=== PATIENT | female | born 1985 | race Asian ===

== ENCOUNTER 2017-03-28 16:55 | Observation (INO) | payer OTHER ==
[~2017-03-28] VITALS: Ht 121.9 cm; Wt 42.3 kg
[2017-03-28 18:17] LABS: BILIRUBIN,URINE NEGATIVE (NEG); GLUCOSE,URINE >=1000 mg/dL (NEG); NITRITE,URINE NEGATIVE (NEG); PROTEIN,URINE NEGATIVE (NEG-TRACE); UROBILINOGEN,URINE 0.2 mg/dL (0.2 mg/dL)
[2017-03-28 18:32] LABS: BACTERIA,URINE 0 /HPF (0-FEW); SQUAMOUS EPITHELIAL CELL,UR OCC /LPF
[2017-03-28] MEDS ORDERED: IV NORMAL SALINE 1000ML BAG 1,000 ML IV SCH (18:43)
--- NOTE | 2017-03-28 18:43 | PHYS DOC ---
Past Medical History Past Medical History: Diabetes-Type I, Hypertension Additional Past Medical Histor: Neuropathy Past Surgical History: Additional Past Surgical Histo: eyes Alcohol Use: None Drug Use: None Adult General Chief Complaint Chief Complaint: NAUSEA/VOMITING/DIARRHA HPI HPI Patient is a 31 year old female who presents with nausea vomiting and diarrhea. All started a week ago when she started on several rounds of nonbloody loose stools which have resolved. She states now she can't keep any liquids down. She states her sugars were running for 100s even though she's not been eating. Every time she tries to eat or drink anything she vomits back up. She's did not check her sugars today but states she is a checks only about once a day. She states recently her primary care doctor tried to increase her insulin to a higher dose. She takes it twice a day. Currently she states she feels cold she denies any cough, abdominal pain or dysuria. Review of Systems Review of Systems Constitutional: Denies fever or positive for chills [] Eyes: Denies change in visual acuity, redness, or eye pain [] HENT: Denies nasal congestion or sore throat [] Respiratory: Denies cough or shortness of breath [] Cardiovascular: No additional information not addressed in HPI [] GI: Denies abdominal pain, bloody stools or diarrhea as it for nausea vomiting : Denies dysuria or hematuria [] Musculoskeletal: Denies back pain or joint pain [] Integument: Denies rash or skin lesions [] Neurologic: Denies headache, focal weakness or sensory changes [] Endocrine: Denies polyuria or polydipsia [] Current Medications Current Medications Current Medications Medications (Trade) Dose Ordered Sig/Rafaela Start Time Stop Time Status Last Admin Dose Admin Ceftriaxone Sodium 1 gm/ Sodium Chloride 50 ml @ 100 mls/hr Q24H 03/29/17 21:00 Ceftriaxone Sodium (Rocephin 1gm Ivpb For Omni) 50 ml @ 100 mls/hr 1X ONCE 03/28/17 21:30 03/28/17 21:59 Ondansetron HCl (Zofran) 4 mg PRN Q8HRS PRN 03/28/17 21:15 03/29/17 21:14 Sodium Chloride 1,000 ml @ 1,000 mls/hr Q1H 03/28/17 18:43 03/28/17 19:42 DC 03/28/17 19:55 1,000 MLS/HR Allergies Allergies Allergies Coded Allergies Type Severity Reaction Last Updated Verified No Known Drug Allergies 03/28/17 No Physical Exam Physical Exam Constitutional: Well developed, well nourished, no acute distress, non-toxic appearance. [] HENT: Normocephalic, atraumatic, bilateral external ears normal, oropharynx moist, no oral exudates, nose normal. [] Eyes: PERRLA, EOMI, conjunctiva normal, no discharge. [] Neck: Normal range of motion, no tenderness, supple, no stridor. [] Cardiovascular:Heart rate regular rhythm, no murmur [] Lungs & Thorax: Bilateral breath sounds clear to auscultation [] Abdomen: Bowel sounds normal, soft, no tenderness, no masses, no pulsatile masses. [] Skin: Warm, dry, no erythema, no rash. [] Back: No tenderness, no CVA tenderness. [] Extremities: No tenderness, no cyanosis, no clubbing, ROM intact, no edema. [] Neurologic: Alert and oriented X 3, normal motor function, normal sensory function, no focal deficits noted. [] Psychologic: Affect normal, judgement normal, mood normal. [] Current Patient Data Vital Signs Vital Signs Date Time Temp Pulse Resp B/P Pulse Ox O2 Delivery O2 Flow Rate FiO2 03/28/17 17:16 97.9 105 16 141/76 100 Room Air 97.9 Lab Values Laboratory Tests Test 03/28/17 17:05 03/28/17 18:09 03/28/17 19:13 POC Urine HCG, Qualitative Hcg negative (Negative) Urine Opiates Screen Neg (NEG) Urine Methadone Screen Neg (NEG) Urine Barbiturates Neg (NEG) Urine Phencyclidine Screen Neg (NEG) Urine Amphetamine/Methamphetamine Neg (NEG) Urine Benzodiazepines Screen Neg (NEG) Urine Cocaine Screen Neg (NEG) Urine Cannabinoids Screen Neg (NEG) Urine Ethyl Alcohol Neg (NEG) Urine Color Yellow Urine Clarity Clear Urine pH 7.0 Urine Specific [place] 1.020 Urine Protein Negativemg/dL (NEG-TRACE) Urine Glucose (UA) >=1000mg/dL (NEG) Urine Ketones (Stick) Negativemg/dL (NEG) Urine Blood Moderate (NEG) Urine Nitrite Negative (NEG) Urine Bilirubin Negative (NEG) Urine Urobilinogen Dipstick 0.2mg/dL (0.2 mg/dL) Urine Leukocyte Esterase Moderate (NEG) Urine RBC 3-5/HPF (0-2) Urine WBC 11-20/HPF (0-4) Urine Squamous Epithelial Cells Occ/LPF Urine Bacteria 0/HPF (0-FEW) Urine Test Negative (NEG) White Blood Count 8.8x10^3/uL (4.0-11.0) Red Blood Count 3.53x10^6/uL (3.50-5.40) Hemoglobin 9.9g/dL (12.0-15.5) L Hematocrit 31.1% (36.0-47.0) L Mean Corpuscular Volume 88fL (79-100) Mean Corpuscular Hemoglobin 28pg (25-35) Mean Corpuscular Hemoglobin Concent 32g/dL (31-37) Red Cell Distribution Width 15.1% (11.5-14.5) H Platelet Count 299x10^3/uL (140-400) Neutrophils (%) (Auto) 66% (31-73) Lymphocytes (%) (Auto) 27% (24-48) Monocytes (%) (Auto) 4% (0-9) Eosinophils (%) (Auto) 2% (0-3) Basophils (%) (Auto) 1% (0-3) Neutrophils # (Auto) 5.8x10^3uL (1.8-7.7) Lymphocytes # (Auto) 2.3x10^3/uL (1.0-4.8) Monocytes # (Auto) 0.4x10^3/uL (0.0-1.1) Eosinophils # (Auto) 0.2x10^3/uL (0.0-0.7) Basophils # (Auto) 0.1x10^3/uL (0.0-0.2) Sodium Level 137mmol/L (136-145) Potassium Level 4.1mmol/L (3.5-5.1) Chloride Level 100mmol/L (98-107) Carbon Dioxide Level 28mmol/L (21-32) Anion Gap 9 (6-14) Blood Urea Nitrogen 8mg/dL (7-20) Creatinine 0.7mg/dL (0.6-1.0) Estimated GFR (Cockcroft-Gault) 98.3 Glucose Level 378mg/dL (70-99) H Calcium Level 9.7mg/dL (8.5-10.1) Total Bilirubin 0.2mg/dL (0.2-1.0) Direct Bilirubin 0.1mg/dL (0.0-0.2) Aspartate Amino Transferase (AST) 53U/L (15-37) H Alanine Aminotransferase (ALT) 117U/L (14-59) H Alkaline Phosphatase 83U/L (46-116) Creatine Kinase 61U/L (26-192) Creatine Kinase MB (Mass) 0.6ng/mL (0.0-3.6) Creatine Kinase MB Relative Index 1.0% (0-4) Total Protein 8.5g/dL (6.4-8.2) H Albumin 3.4g/dL (3.4-5.0) Lipase 225U/L (73-393) Laboratory Tests 03/28/17 19:13 Laboratory Tests 03/28/17 19:13 EKG EKG EKG shows sinus tachycardia with rate of [address] elevations or T- wave inversions, normal axis, QTC 4:30 milliseconds as interpreted by me. Radiology/Procedures Radiology/Procedures [] Impressions: Uncontrolled nausea and vomiting UTI Hyperglycemia Course & Med Decision Making Course & Med Decision Making Pertinent Labs and Imaging studies reviewed. (See chart for details) Labs show hyperglycemia otherwise she has a urinary tract infection. We'll give 1 g of Rocephin, IV fluids and admit to the hospitalist. This time being admitted to the hospitalist. Interim bridge orders have been written. Dragon Disclaimer Dragon Disclaimer This electronic medical record was generated, in whole or in part, using a voice recognition dictation system. Departure Departure Impression: Primary Impression: Nausea & vomiting Additional Impression: UTI (urinary tract infection) Disposition: 09 ADMITTED INPATIENT Admitting Physician: Marie Barbour Condition: STABLE Referrals: HSUKRI DOWLING MD (PCP) Problem Qualifiers Primary Impression: Nausea & vomiting Vomiting Intractability: intractable Additional Impression: UTI (urinary tract infection) Hematuria presence: without hematuria ROBINSON ROBLES MD Mar 28, 2017 18:43
[2017-03-28 18:48] LABS: NEG OBC UR NEG; POS OBC UR POS
[2017-03-28 19:16] LABS: BARBITURATES NEG (NEG); BENZODIAZEPINES NEG (NEG); CANNABINOIDS NEG (NEG); COCAINE NEG (NEG); METHADONE NEG (NEG); OPIATES NEG (NEG); PHENCYCLIDINE NEG (NEG)
[2017-03-28 19:34] LABS: BASO # 0.1 x10^3/uL (0.0-0.2); BASO % 1 % (0-3); EOS % 2 % (0-3); HEMATOCRIT 31.1 % (36.0-47.0); HEMOGLOBIN 9.9 g/dL (12.0-15.5); LYMPH # 2.3 x10^3/uL (1.0-4.8); LYMPH % 27 % (24-48); MEAN CORPUSCULAR HEMOGLOBIN 28 pg (25-35); MEAN CORPUSCULAR HGB CONC 32 g/dL (31-37); MEAN CORPUSCULAR VOLUME 88 fL (79-100); MONO % 4 % (0-9); NEUT % 66 % (31-73); PLATELET COUNT 299 x10^3/uL (140-400); RED BLOOD COUNT 3.53 x10^6/uL (3.50-5.40); RED CELL DISTRIBUTION WIDTH 15.1 % (11.5-14.5); WHITE BLOOD COUNT 8.8 x10^3/uL (4.0-11.0)
[2017-03-28 19:55] LABS: CALCIUM 9.7 mg/dL (8.5-10.1); CREATININE 0.7 mg/dL (0.6-1.0); GFR 98.3; POTASSIUM 4.1 mmol/L (3.5-5.1)
[2017-03-28 20:00] LABS: ALBUMIN 3.4 g/dL (3.4-5.0); DIRECT BILIRUBIN 0.1 mg/dL (0.0-0.2); TOTAL BILIRUBIN 0.2 mg/dL (0.2-1.0); TOTAL PROTEIN 8.5 g/dL (6.4-8.2)
[2017-03-28 20:08] LABS: CKMB MASS 0.6 ng/mL (0.0-3.6)
[2017-03-28] MEDS ORDERED: IV NORMAL SALINE 1000ML BAG 1,000 ML IV ONE (21:15)
[2017-03-28] MEDS ORDERED: ONDANSETRON PF 4 MG/2 ML VIAL. IV PRN (21:15)
--- NOTE | 2017-03-28 21:37 | ACF ---
Admission Forms Criteria VOMITING Clinical Indications for Admission to Inpatient Care ( Place 'X' for any and all applicable criteria): Admission is indicated for 1 or more of the following(1)(2)(3): [ ]I. Complete or partial gastrointestinal obstruction [ ]II. Vomiting due to significant metabolic derangement (eg, severe hypercalcemia, diabetic ketoacidosis) [ ]III. Other cause of vomiting requiring hospitalization (eg, poisoning, increased intracranial pressure) [X ]IV. Inpatient admission required rather than observation care because of 1 or more of the following [ ]i) Hemodynamic instability [X ]ii) Vomiting that is severe or persistent indicated by 1 or more of the following 1) Numerous episodes of vomiting in past 24hours (eg, every 1 to 2 hours) 2) Suggests severe underlying cause or complication (eg , projectile, feculent, bilious, coffee ground, bloody) 3) Appropriate antiemetic treatment (eg, repeated oral or parenteral dosing) does not sufficiently reduce vomiting within 12 to 24 hours of treatment X4) Treatment regimen necessary to adequately control vomiting requires inpatient level of care (eg, not immediately available in outpatient setting) [ ]iii) Severe electrolyte abnormalities requiring inpatient care [ ]iv) Severe pain requiring acute inpatient management( Continuous or frequent (eg, every 2 to 4 hours) parental analgesics or analgesic regimen that can only be performed or initiated in inpatient setting) [ ]v) High fever or infection requiring inpatient admission as indicated by 1 or more of the following(7)(8): [ ]1) Appropriate outpatient or observation care antimicrobial treatment unavailable, not effective, or not feasible [ ]2) Documented bacteremia [ ]3) Temp >104.9 degrees F (40.5 degrees C) (oral) [ ]4) Temp >103.1 degrees F (39.5 C) (oral) or <96.8 degrees F (36 C) (rectal) that does not respond to all emergency treatment measures [ ]vi) Acute renal failure [ ]vii) IV fluid required rather than oral rehydration to replace significant on going losses (greater than 3 L/m2 per day) [ ]viii) Parenteral nutrition regimen that must be implemented on inpatient basis [ ]ix) Other condition, treatment or monitoring requiring inpatient admission Extended stay beyond goal length of stay may be needed for(1)(4): [ ]a) Severe vomiting [ ]b) Persistent vomiting, vital sign changes, severe electrolyte imbalance , or diagnosed cause of vomiting that requires continued hospitalization (eg, gastrointestinal obstruction , increased intracranial pressure) [ ]c) Surgery to treat identified causes of vomiting (eg, bowel obstruction , intracranial process) [ ]d) Comorbid illness that requires inpatient care (eg, acute heart failure , renal failure) [ ]e) Need for inpatient endoscopy The original [facility] [facility] content created by [employer] has been revised. The portions of the content which have been revised are identified through the use of italic text or in bold, and [facility] has neither reviewed nor approved the modified material. All other unmodified content is copyright [facility] [facility] Please see references footnoted in the original [facility] [employer] edition 2016 Admission Criteria Met?: Yes TK PAUL Mar 28, 2017 21:37
[2017-03-28] MEDS ORDERED: DEXTROSE 50% 25 GM / 50ML DISP.SYRIN. IV PRN (22:30)
[2017-03-28] MEDS: IV NORMAL SALINE 1000ML BAG 1,000 ML IV SCH (23:22)
[2017-03-28] MEDS ORDERED: INSU100V31 SQ (23:36)
[2017-03-28 23:47] VITALS: BP 145/77
[2017-03-29 03:00] VITALS: BP 128/79
[2017-03-29 05:53] LABS: HEMATOCRIT 28.7 % (36.0-47.0); HEMOGLOBIN 9.4 g/dL (12.0-15.5); MEAN CORPUSCULAR VOLUME 87 fL (79-100); RED BLOOD COUNT 3.31 x10^6/uL (3.50-5.40); WHITE BLOOD COUNT 7.3 x10^3/uL (4.0-11.0)
[2017-03-29 05:54] LABS: BASO # 0.1 x10^3/uL (0.0-0.2); BASO % 1 % (0-3); EOS % 2 % (0-3); LYMPH % 27 % (24-48); MEAN CORPUSCULAR HEMOGLOBIN 29 pg (25-35); MEAN CORPUSCULAR HGB CONC 33 g/dL (31-37); MONO % 5 % (0-9); NEUT % 65 % (31-73); PLATELET COUNT 267 x10^3/uL (140-400); RED CELL DISTRIBUTION WIDTH 15.2 % (11.5-14.5)
[2017-03-29 06:57] LABS: CALCIUM 8.7 mg/dL (8.5-10.1); CREATININE 0.8 mg/dL (0.6-1.0); GFR 84.2; POTASSIUM 4.1 mmol/L (3.5-5.1)
[2017-03-29 07:02] VITALS: BP 128/82
--- NOTE | 2017-03-29 07:53 | PDOC1 ---
History and Physical Current Problem List Problem List Problems Medical Problems: (1) Nausea & vomiting Status: Acute (2) UTI (urinary tract infection) Status: Acute Current Medications Current Medications Current Medications Medications (Trade) Dose Ordered Sig/Rafaela Start Time Stop Time Status Last Admin Dose Admin Ceftriaxone Sodium 1 gm/ Sodium Chloride 50 ml @ 100 mls/hr Q24H 03/29/17 21:00 Ceftriaxone Sodium (Rocephin 1gm Ivpb For Omni) 50 ml @ 100 mls/hr 1X ONCE 03/28/17 21:30 03/28/17 21:59 DC 03/28/17 23:20 100 MLS/HR Dextrose 12.5 gm 12.5 gm PRN Q15MIN PRN 03/28/17 22:30 Insulin Aspart (Novolog) 0-9 UNITS TIDWMEALS 03/29/17 08:00 Ondansetron HCl (Zofran) 4 mg PRN Q8HRS PRN 03/28/17 21:15 03/29/17 21:14 Sodium Chloride (Iv Sodium Chloride 0.9% 1000ml Bag) 1,000 ml @ 75 mls/hr [id number] 03/28/17 22:30 03/28/17 23:22 75 MLS/HR Allergies Allergies Allergies Coded Allergies Type Severity Reaction Last Updated Verified No Known Drug Allergies 03/28/17 No ROS Review of System CONSTITUTIONAL: No fever or chills EYES: No recent changes SKIN: No rash or itching CARDIOVASCULAR: No chest pain, syncope, palpitations, or edema RESPIRATORY: No SOB or cough GASTROINTESTINAL: nausea, NEUROLOGICAL: No headaches or weakness ENDOCRINE: No cold or heat intolerance GENITOURINARY: No urgency or frequency of urination MUSCULOSKELETAL: No back pain or joint pain LYMPHATICS: No enlarged lymph nodes PSYCHIATRIC: No anxiety or depression Physical Exam Physical Exam GEN.: No apparent distress. Alert and oriented. thin built HEENT: Head is normocephalic, atraumatic NECK: Supple. LUNGS: Clear to auscultation. HEART: RRR, S1, S2 present. Peripheral pulses intact ABDOMEN: Soft, nontender. Positive bowel sounds. EXTREMITIES: Without any cyanosis. NEUROLOGIC: Normal speech, normal tone PSYCHIATRIC: Normal affect, normal mood. SKIN: No ulcerations Vitals Vitals Vital Signs Date Time Temp Pulse Resp B/P Pulse Ox O2 Delivery O2 Flow Rate FiO2 03/29/17 03:00 97.6 111 20 128/79 96 Room Air 97.6 Labs Labs Laboratory Tests Test 03/28/17 17:05 03/28/17 18:09 03/28/17 19:13 03/29/17 05:00 Bedside Urine HCG, Qualitative Hcg negative (Negative) Urine Opiates Screen Neg (NEG) Urine Methadone Screen Neg (NEG) Urine Barbiturates Neg (NEG) Urine Phencyclidine Screen Neg (NEG) Urine Amphetamine/Methamphetamine Neg (NEG) Urine Benzodiazepines Screen Neg (NEG) Urine Cocaine Screen Neg (NEG) Urine Cannabinoids Screen Neg (NEG) Urine Ethyl Alcohol Neg (NEG) Urine Color Yellow Urine Clarity Clear Urine pH 7.0 Urine Specific [place] 1.020 Urine Protein Negativemg/dL (NEG-TRACE) Urine Glucose (UA) >=1000mg/dL (NEG) Urine Ketones (Stick) Negativemg/dL (NEG) Urine Blood Moderate (NEG) Urine Nitrite Negative (NEG) Urine Bilirubin Negative (NEG) Urine Urobilinogen Dipstick 0.2mg/dL (0.2 mg/dL) Urine Leukocyte Esterase Moderate (NEG) Urine RBC 3-5/HPF (0-2) Urine WBC 11-20/HPF (0-4) Urine Squamous Epithelial Cells Occ/LPF Urine Bacteria 0/HPF (0-FEW) Urine Test Negative (NEG) White Blood Count 8.8x10^3/uL (4.0-11.0) 7.3x10^3/uL (4.0-11.0) Red Blood Count 3.53x10^6/uL (3.50-5.40) 3.31x10^6/uL (3.50-5.40) Hemoglobin 9.9g/dL (12.0-15.5) 9.4g/dL (12.0-15.5) Hematocrit 31.1% (36.0-47.0) 28.7% (36.0-47.0) Mean Corpuscular Volume 88fL (79-100) 87fL (79-100) Mean Corpuscular Hemoglobin 28pg (25-35) 29pg (25-35) Mean Corpuscular Hemoglobin Concent 32g/dL (31-37) 33g/dL (31-37) Red Cell Distribution Width 15.1% (11.5-14.5) 15.2% (11.5-14.5) Platelet Count 299x10^3/uL (140-400) 267x10^3/uL (140-400) Neutrophils (%) (Auto) 66% (31-73) 65% (31-73) Lymphocytes (%) (Auto) 27% (24-48) 27% (24-48) Monocytes (%) (Auto) 4% (0-9) 5% (0-9) Eosinophils (%) (Auto) 2% (0-3) 2% (0-3) Basophils (%) (Auto) 1% (0-3) 1% (0-3) Neutrophils # (Auto) 5.8x10^3uL (1.8-7.7) 4.8x10^3uL (1.8-7.7) Lymphocytes # (Auto) 2.3x10^3/uL (1.0-4.8) 2.0x10^3/uL (1.0-4.8) Monocytes # (Auto) 0.4x10^3/uL (0.0-1.1) 0.4x10^3/uL (0.0-1.1) Eosinophils # (Auto) 0.2x10^3/uL (0.0-0.7) 0.1x10^3/uL (0.0-0.7) Basophils # (Auto) 0.1x10^3/uL (0.0-0.2) 0.1x10^3/uL (0.0-0.2) Sodium Level 137mmol/L (136-145) 137mmol/L (136-145) Potassium Level 4.1mmol/L (3.5-5.1) 4.1mmol/L (3.5-5.1) Chloride Level 100mmol/L (98-107) 103mmol/L (98-107) Carbon Dioxide Level 28mmol/L (21-32) 25mmol/L (21-32) Anion Gap 9 (6-14) 9 (6-14) Blood Urea Nitrogen 8mg/dL (7-20) 7mg/dL (7-20) Creatinine 0.7mg/dL (0.6-1.0) 0.8mg/dL (0.6-1.0) Estimated GFR (Cockcroft-Gault) 98.3 84.2 Glucose Level 378mg/dL (70-99) 430mg/dL (70-99) Calcium Level 9.7mg/dL (8.5-10.1) 8.7mg/dL (8.5-10.1) Total Bilirubin 0.2mg/dL (0.2-1.0) Direct Bilirubin 0.1mg/dL (0.0-0.2) Aspartate Amino Transf (AST/SGOT) 53U/L (15-37) Alanine Aminotransferase (ALT/SGPT) 117U/L (14-59) Alkaline Phosphatase 83U/L (46-116) Creatine Kinase 61U/L (26-192) Creatine Kinase MB (Mass) 0.6ng/mL (0.0-3.6) Creatine Kinase MB Relative Index 1.0% (0-4) Total Protein 8.5g/dL (6.4-8.2) Albumin 3.4g/dL (3.4-5.0) Lipase 225U/L (73-393) Laboratory Tests Test 03/28/17 17:05 03/28/17 18:09 03/28/17 19:13 03/29/17 05:00 Bedside Urine HCG, Qualitative Hcg negative (Negative) Urine Opiates Screen Neg (NEG) Urine Methadone Screen Neg (NEG) Urine Barbiturates Neg (NEG) Urine Phencyclidine Screen Neg (NEG) Urine Amphetamine/Methamphetamine Neg (NEG) Urine Benzodiazepines Screen Neg (NEG) Urine Cocaine Screen Neg (NEG) Urine Cannabinoids Screen Neg (NEG) Urine Ethyl Alcohol Neg (NEG) Urine Color Yellow Urine Clarity Clear Urine pH 7.0 Urine Specific [place] 1.020 Urine Protein Negativemg/dL (NEG-TRACE) Urine Glucose (UA) >=1000mg/dL (NEG) Urine Ketones (Stick) Negativemg/dL (NEG) Urine Blood Moderate (NEG) Urine Nitrite Negative (NEG) Urine Bilirubin Negative (NEG) Urine Urobilinogen Dipstick 0.2mg/dL (0.2 mg/dL) Urine Leukocyte Esterase Moderate (NEG) Urine RBC 3-5/HPF (0-2) Urine WBC 11-20/HPF (0-4) Urine Squamous Epithelial Cells Occ/LPF Urine Bacteria 0/HPF (0-FEW) Urine Test Negative (NEG) White Blood Count 8.8x10^3/uL (4.0-11.0) 7.3x10^3/uL (4.0-11.0) Red Blood Count 3.53x10^6/uL (3.50-5.40) 3.31x10^6/uL (3.50-5.40) Hemoglobin 9.9g/dL (12.0-15.5) 9.4g/dL (12.0-15.5) Hematocrit 31.1% (36.0-47.0) 28.7% (36.0-47.0) Mean Corpuscular Volume 88fL (79-100) 87fL (79-100) Mean Corpuscular Hemoglobin 28pg (25-35) 29pg (25-35) Mean Corpuscular Hemoglobin Concent 32g/dL (31-37) 33g/dL (31-37) Red Cell Distribution Width 15.1% (11.5-14.5) 15.2% (11.5-14.5) Platelet Count 299x10^3/uL (140-400) 267x10^3/uL (140-400) Neutrophils (%) (Auto) 66% (31-73) 65% (31-73) Lymphocytes (%) (Auto) 27% (24-48) 27% (24-48) Monocytes (%) (Auto) 4% (0-9) 5% (0-9) Eosinophils (%) (Auto) 2% (0-3) 2% (0-3) Basophils (%) (Auto) 1% (0-3) 1% (0-3) Neutrophils # (Auto) 5.8x10^3uL (1.8-7.7) 4.8x10^3uL (1.8-7.7) Lymphocytes # (Auto) 2.3x10^3/uL (1.0-4.8) 2.0x10^3/uL (1.0-4.8) Monocytes # (Auto) 0.4x10^3/uL (0.0-1.1) 0.4x10^3/uL (0.0-1.1) Eosinophils # (Auto) 0.2x10^3/uL (0.0-0.7) 0.1x10^3/uL (0.0-0.7) Basophils # (Auto) 0.1x10^3/uL (0.0-0.2) 0.1x10^3/uL (0.0-0.2) Sodium Level 137mmol/L (136-145) 137mmol/L (136-145) Potassium Level 4.1mmol/L (3.5-5.1) 4.1mmol/L (3.5-5.1) Chloride Level 100mmol/L (98-107) 103mmol/L (98-107) Carbon Dioxide Level 28mmol/L (21-32) 25mmol/L (21-32) Anion Gap 9 (6-14) 9 (6-14) Blood Urea Nitrogen 8mg/dL (7-20) 7mg/dL (7-20) Creatinine 0.7mg/dL (0.6-1.0) 0.8mg/dL (0.6-1.0) Estimated GFR (Cockcroft-Gault) 98.3 84.2 Glucose Level 378mg/dL (70-99) 430mg/dL (70-99) Calcium Level 9.7mg/dL (8.5-10.1) 8.7mg/dL (8.5-10.1) Total Bilirubin 0.2mg/dL (0.2-1.0) Direct Bilirubin 0.1mg/dL (0.0-0.2) Aspartate Amino Transf (AST/SGOT) 53U/L (15-37) Alanine Aminotransferase (ALT/SGPT) 117U/L (14-59) Alkaline Phosphatase 83U/L (46-116) Creatine Kinase 61U/L (26-192) Creatine Kinase MB (Mass) 0.6ng/mL (0.0-3.6) Creatine Kinase MB Relative Index 1.0% (0-4) Total Protein 8.5g/dL (6.4-8.2) Albumin 3.4g/dL (3.4-5.0) Lipase 225U/L (73-393) VTE Prophylaxis Ordered VTE Prophylaxis Devices: No VTE Pharmacological Prophylaxi: No STEFANO PARRA MD Mar 29, 2017 07:53
--- NOTE | 2017-03-29 08:31 | EKG ---
[facility] [address] [place] [address] Test Date: 2017-03-28 Test Time: 19:58:58 Pat Name: GODWIN MARCUM Department: Room: 588 1 Gender: F Occupational Health Professional: : 1985 Requested By: ROBINSON ROBLES Order Number: [id number] Reading MD: Matthew Villeda Measurements Intervals [place] Rate: 107 P: 37 CA: 120 QRS: 26 QRSD: 68 T: 15 QT: 318 QTc: 430 Interpretive Statements SINUS TACHYCARDIA Electronically Signed On 04-02-2017 9:47:04 CDT by Matthew Villeda
[2017-03-29] MEDS: INSULIN ASPART 300 UNITS/3 ML INSULN.PEN SQ SCH ×3 (09:17→17:08)
[2017-03-29 11:15] VITALS: BP 131/86
[2017-03-29] MEDS: IV NORMAL SALINE 1000ML BAG 1,000 ML IV SCH (12:32)
--- NOTE | 2017-03-29 14:44 | HP ---
ADMIT DATE: 03/29/2017 CHIEF COMPLAINT: Nausea, vomiting, diarrhea. HISTORY OF PRESENT ILLNESS: A 31-year-old female patient with diabetes, probably type 1 presented to the ER with nausea, vomiting, and diarrhea. She had several bowel movements, nonbloody prior to the admission; however, here she denies any diarrhea. She had nausea. Her blood sugars were running low. The patient could not able to give me full history. There is a communication gap due to language barrier. This morning the patient still has some nausea and wants to eat. She cannot recall her home medications. PAST MEDICAL HISTORY: Type 1 diabetes, hypertension, and neuropathy. PAST SURGICAL HISTORY: . PERSONAL HISTORY: No smoking, no alcohol, no drug abuse. Lives with her parents. REVIEW OF SYSTEMS: Please see my electronic H and P. PHYSICAL EXAMINATION: Please see my electronic H and P. ALLERGIES: NKDA. FAMILY HISTORY: Unknown to the patient. LABORATORY FINDINGS: Chemistry panel within normal limits. Glucose is 378. Lipase is normal. Hematology: WBC 8.8, hemoglobin is 9.9, MCV is 88, platelets are 299. Toxicology negative. Urine: test negative and ketones negative, nitrates negative, leukocyte esterase moderate. IMAGING STUDIES: Not done. ASSESSMENT: 1. Nausea, vomiting, uncontrolled. 2. Hyperglycemia with type 1 diabetes mellitus. PLAN: 1. Nausea, vomiting, and diarrhea. Suspect viral infectious process with gastroenteritis. Currently, symptoms are improving. Continue IV hydration. Electrolytes are improved. 2. The patient did not recall her home insulin doses. I will start her on sliding scale insulin. 3. Advance her diet this morning. 4. Monitor Accu-Cheks. 5. p.r.n. Zofran. 6. Hemodynamically, the patient is stable; however, she has mild tachycardia, I will continue IV hydration. 7. If symptoms improve, we will discharge her today. If not, tomorrow. STEFANO PARRA MD DR: RAMAN/france JOB#: [id number] / [id number] MTDD
[2017-03-29 15:00] VITALS: BP 137/92
[2017-03-29 19:00] VITALS: BP 131/91
[2017-03-29] MEDS ORDERED: INSULIN DETEMIR 300 UNITS/3 ML INSULN.PEN. SQ SCH (21:00)
[2017-03-29 23:24] VITALS: BP 133/87
[2017-03-30] MEDS ORDERED: INSULIN ASPART 300 UNITS/3 ML INSULN.PEN SQ ONE (01:30)
[2017-03-30] MEDS: IV NORMAL SALINE 1000ML BAG 1,000 ML IV SCH (02:35)
[2017-03-30 03:00] VITALS: BP 116/71
[2017-03-30 07:00] VITALS: BP 118/82
[2017-03-30] MEDS: INSULIN ASPART 300 UNITS/3 ML INSULN.PEN SQ SCH ×4 (08:31→12:17)
[2017-03-30 11:00] VITALS: BP 118/73
[2017-03-30 14:58] VITALS: BP 129/91
--- NOTE | 2017-03-30 21:57 | DS ---
DATE OF DISCHARGE: 03/30/2017 CHIEF COMPLAINT: 1. Nausea, vomiting, present on admission, resolved, suspected gastroenteritis, resolved. 2. Hyperglycemia, type 1 diabetes mellitus, controlled. HOSPITAL COURSE: A 31-year-old female patient admitted to hospital with nausea, vomiting and diarrhea. Symptoms resolved with symptomatic treatment. She was treated with IV normal saline and sliding scale insulin and NovoLog. She appears to be clinically stable and her hemoglobin today was 11.4, which is not controlled. The patient is educated to follow up with primary care doctor. She deemed clinically stable enough to go home. PHYSICAL EXAMINATION: GENERAL: Alert, oriented x 3. HEART: S1, S2, ____. CHEST: Clear. ABDOMEN: Soft, nontender, no organomagaly. EXTREMITIES: No edema. DISCHARGE DISPOSITION: Home. DISCHARGE CONDITION: Stable. FOLLOWUP: With the primary care doctor. MEDICATIONS: Reviewed : Please see MAR. Total time spent for discharge 31 minutes for patient education, counseling and coordination of care. GRECIA LYONS MD DR: GWENDOLYN/france JOB#: [id number] / [id number]
--- NOTE | 2017-03-31 09:50 | DS ---
DATE OF DISCHARGE: 03/30/2017 CHIEF COMPLAINT: 1. Nausea, vomiting, present on admission, resolved, suspected gastroenteritis, resolved. 2. Hyperglycemia, type 1 diabetes mellitus, controlled. HOSPITAL COURSE: A 31-year-old female patient admitted to hospital with nausea, vomiting and diarrhea. Symptoms resolved with symptomatic treatment. She was treated with IV normal saline and sliding scale insulin and NovoLog. She appears to be clinically stable and her hemoglobin today was 11.4, which is not controlled. The patient is educated to follow up with primary care doctor. She deemed clinically stable enough to go home. PHYSICAL EXAMINATION: GENERAL: Alert, oriented x 3. HEART: S1, S2, ____. CHEST: Clear. ABDOMEN: Soft, nontender, no organomagaly. EXTREMITIES: No edema. DISCHARGE DISPOSITION: Home. DISCHARGE CONDITION: Stable. FOLLOWUP: With the primary care doctor. MEDICATIONS: Reviewed : Please see MAR. Total time spent for discharge 31 minutes for patient education, counseling and coordination of care. STEFANO PARRA MD DR: RAMAN/france JOB#: [id number] / [id number]
== END 2017-03-30 15:30 | disposition home or self-care (01) ==
LOC: ER 16:55 → 5 SOUTH 21:00
PROVIDERS: ADMIT Internal Medicine; ATTEND Internal Medicine
DX: R11.2 Nausea with vomiting, unspecified (principal); E10.65 Type 1 diabetes mellitus with hyperglycemia; E10.40 Type 1 diabetes mellitus with diabetic neuropathy, unspecified; I10 Essential (primary) hypertension; N39.0 Urinary tract infection, site not specified; Z79.4 Long term (current) use of insulin
CPT/HCPCS: 36415; 80048; 80076; 81001; 81025; 82553; 82947; 83036; 83690; 85027; 87040; 87086; 93005; 96361; 96365; 96372; 96375; 99285; G0378; G0481; J0690; J0696; J1815; J2405; J7030; G0379

== ENCOUNTER 2017-07-17 13:11 | Inpatient (IN) | payer OTHER ==
[~2017-07-17] VITALS: Ht 149.9 cm; Wt 39.9 kg
[~2017-07-17 13:11] MED LIST: INSU100V31 SQ
--- NOTE | 2017-07-17 13:31 | PHYS DOC ---
Past Medical History Past Medical History: Diabetes-Type I, Hypertension Additional Past Medical Histor: Neuropathy Past Surgical History: , Other Additional Past Surgical Histo: eyes Alcohol Use: None Drug Use: None Adult General Chief Complaint Chief Complaint: SKIN RASH/ABSCESS HPI HPI Patient is a 32 year old female with history of diabetes type 1, hypertension, who presents today with a chin abscess for 7 days. Patient denies any fever. Patient states the abscess has been open for days and is draining bloody material. Patient denies any fever. Denies any nausea vomiting. PCP Dr. Gonzalez Review of Systems Review of Systems Constitutional: Denies fever or chills [] Eyes: Denies change in visual acuity, redness, or eye pain [] HENT: Denies nasal congestion or sore throat [] Respiratory: Denies cough or shortness of breath [] Cardiovascular: No additional information not addressed in HPI [] GI: Denies abdominal pain, nausea, vomiting, bloody stools or diarrhea [] : Denies dysuria or hematuria [] Musculoskeletal: Denies back pain or joint pain [] Integument: chin abscess. Neurologic: Denies headache, focal weakness or sensory changes [] Endocrine: Denies polyuria or polydipsia [] Current Medications Current Medications Current Medications Medications (Trade) Dose Ordered Sig/Rafaela Start Time Stop Time Status Last Admin Dose Admin Acetaminophen (Tylenol) 650 mg PRN Q6HRS PRN 07/17/17 16:15 UNV Acetaminophen/ Hydrocodone Bitart (Lortab 5/325) 1 tab 1X ONCE 07/17/17 16:15 07/17/17 16:16 UNV Diphtheria/ Tetanus/Acell Pertussis (Boostrix) 0.5 ml ONCE ONCE 07/17/17 14:00 07/17/17 14:01 DC 07/17/17 14:03 0.5 ML Docusate Sodium (Colace) 100 mg PRN DAILY PRN 07/17/17 16:15 UNV Enoxaparin Sodium (Lovenox 40mg Syringe) 40 mg DAILY 07/18/17 09:00 UNV Hydralazine HCl (Apresoline) 10 mg PRN Q4HRS PRN 07/17/17 16:15 UNV Morphine Sulfate 2 mg PRN Q2HR PRN 07/17/17 16:15 UNV Ondansetron HCl (Zofran) 4 mg PRN Q6HRS PRN 07/17/17 16:15 UNV Piperacillin Sod/ Tazobactam Sod (Zosyn Per Pharmacy) 1 each PRN DAILY PRN 07/17/17 16:15 UNV Piperacillin Sod/ Tazobactam Sod 4.5 gm/Sodium Chloride 100 ml @ 200 mls/hr 1X ONCE 07/17/17 16:15 07/17/17 16:44 UNV Sodium Chloride 1,000 ml @ 100 mls/hr CONT 07/17/17 16:15 UNV Tramadol HCl (Ultram) 50 mg PRN Q6HRS PRN 07/17/17 16:15 UNV Vancomycin HCl (Vanco Per Pharmacy) 1 each PRN DAILY PRN 07/17/17 16:15 UNV Vancomycin HCl 1.75 gm/Sodium Chloride 500 ml @ 250 mls/hr BID 07/17/17 21:00 UNV Vancomycin HCl 750 mg/Sodium Chloride 250 ml @ 250 mls/hr 1X ONCE 07/17/17 15:30 07/17/17 16:29 07/17/17 15:33 250 MLS/HR Allergies Allergies Allergies Coded Allergies Type Severity Reaction Last Updated Verified No Known Drug Allergies 03/28/17 No Physical Exam Physical Exam Constitutional: ill appearing patient HENT: Normocephalic, atraumatic, bilateral external ears normal, oropharynx moist, no oral exudates, nose normal. [] Eyes: PERRLA, EOMI, conjunctiva normal, no discharge. [] Neck: Normal range of motion, no tenderness, supple, no stridor. [] Cardiovascular:Heart rate regular rhythm, no murmur [] Lungs & Thorax: Bilateral breath sounds clear to auscultation [] Abdomen: Bowel sounds normal, soft, no tenderness, no masses, no pulsatile masses. [] Skin: Chin with an open wound approximately 4 x 3 cm. The wound has surrounding moderate cellulitis and mild swelling. The area is warm, and tender to touch. There is bloody drainage from the area. Back: No tenderness, no CVA tenderness. [] Extremities: No tenderness, no cyanosis, no clubbing, ROM intact, no edema. [] Neurologic: Alert and oriented X 3, normal motor function, normal sensory function, no focal deficits noted. [] Psychologic: Affect normal, judgement normal, mood normal. [] Current Patient Data Vital Signs Vital Signs Date Time Temp Pulse Resp B/P (MAP) Pulse Ox O2 Delivery O2 Flow Rate FiO2 07/17/17 15:15 127 20 110/68 (82) 100 07/17/17 13:23 99.7 Room Air 99.7 Lab Values Laboratory Tests Test 07/17/17 12:53 07/17/17 13:30 07/17/17 13:52 07/17/17 14:20 POC Urine HCG, Qualitative Hcg negative (Negative) Glucose (Fingerstick) 244 mg/dL (70-99) H White Blood Count 17.6 x10^3/uL (4.0-11.0) H Red Blood Count 3.51 x10^6/uL (3.50-5.40) Hemoglobin 9.5 g/dL (12.0-15.5) L Hematocrit 29.9 % (36.0-47.0) L Mean Corpuscular Volume 85 fL (79-100) Mean Corpuscular Hemoglobin 27 pg (25-35) Mean Corpuscular Hemoglobin Concent 32 g/dL (31-37) Red Cell Distribution Width 15.2 % (11.5-14.5) H Platelet Count 302 x10^3/uL (140-400) Neutrophils (%) (Auto) 83 % (31-73) H Lymphocytes (%) (Auto) 12 % (24-48) L Monocytes (%) (Auto) 4 % (0-9) Eosinophils (%) (Auto) 1 % (0-3) Basophils (%) (Auto) 1 % (0-3) Neutrophils # (Auto) 14.6 x10^3uL (1.8-7.7) H Lymphocytes # (Auto) 2.0 x10^3/uL (1.0-4.8) Monocytes # (Auto) 0.8 x10^3/uL (0.0-1.1) Eosinophils # (Auto) 0.1 x10^3/uL (0.0-0.7) Basophils # (Auto) 0.1 x10^3/uL (0.0-0.2) Segmented Neutrophils % 90 % (35-66) H Lymphocytes % 6 % (24-48) L Monocytes % 4 % (0-10) Platelet Estimate Increased (ADEQUATE) Platelet Clumps, EDTA Present Large Platelets Occ Polychromasia Slight Target Cells Occ Ovalocytes Occ Stomatocytes Occ Erythrocyte Sedimentation Rate 134 (0-25) H Sodium Level 132 mmol/L (136-145) L Potassium Level 3.6 mmol/L (3.5-5.1) Chloride Level 95 mmol/L (98-107) L Carbon Dioxide Level 27 mmol/L (21-32) Anion Gap 10 (6-14) Blood Urea Nitrogen 8 mg/dL (7-20) Creatinine 0.8 mg/dL (0.6-1.0) Estimated GFR (Cockcroft-Gault) 83.7 Glucose Level 240 mg/dL (70-99) H Lactic Acid Level 2.3 mmol/L (0.4-2.0) H Calcium Level 9.2 mg/dL (8.5-10.1) C-Reactive Protein, Quantitative 103.8 mg/L (0-3.3) H Procalcitonin 0.26 ng/mL (0.00-0.10) H Urine Color Yellow Urine Clarity Clear Urine pH 6.5 Urine Specific [place] 1.015 Urine Protein 30 mg/dL (NEG-TRACE) Urine Glucose (UA) >=1000 mg/dL (NEG) Urine Ketones (Stick) Negative mg/dL (NEG) Urine Blood Negative (NEG) Urine Nitrite Negative (NEG) Urine Bilirubin Negative (NEG) Urine Urobilinogen Dipstick 1.0 mg/dL (0.2 mg/dL) Urine Leukocyte Esterase Negative (NEG) Urine RBC 0 /HPF (0-2) Urine WBC Occ /HPF (0-4) Urine Squamous Epithelial Cells Occ /LPF Urine Bacteria Few /HPF (0-FEW) Laboratory Tests 07/17/17 13:52 Laboratory Tests 07/17/17 13:52 EKG EKG 14:[address] Zhou sinus tachycardia, heart rate 129, QRS interval 66, no STEMI [] Radiology/Procedures Radiology/Procedures [] Course & Med Decision Making Course & Med Decision Making Pertinent Labs and Imaging studies reviewed. (See chart for details) Patient with history of diabetes type 1 and hypertension who presents today with a chin abscess. 7 days. The abscess is open and draining bloody material. Patient has surrounding cellulitis. Vitals on arrival to the ED temperature 99.7, heart rate 137, blood pressure 143 /79, O2 sats 100% on room air she was started on the sepsis protocol. CBC with a WBC of 17.6 in the left shift, CMP with glucose of 240, C-reactive 103.8, lactic 2.3, pro-calcitonin 0.26. Consulted with Dr. Cristina who accepted patient for admission. Patient was started on vancomycin. Dragon Disclaimer Dragon Disclaimer This electronic medical record was generated, in whole or in part, using a voice recognition dictation system. Departure Departure Impression: Primary Impression: Sepsis Additional Impressions: Fever Tachycardia Abscess or cellulitis of chin Disposition: ADMITTED INPATIENT Condition: STABLE Referrals: SHUKRI GONZALEZ MD (PCP) Problem Qualifiers Primary Impression: Sepsis Sepsis type: sepsis due to unspecified organism Qualified Codes: A41.9 - Sepsis, unspecified organism Additional Impressions: Fever Fever type: unspecified Qualified Codes: R50.9 - Fever, unspecified [employer] Jul 17, 2017 13:31
[2017-07-17] MEDS ORDERED: IV NORMAL SALINE 500ML BAG 500 ML IV PRN (13:45)
[2017-07-17] MEDS ORDERED: DIPHTH,PERTUSS(ACELL),TET TOX 0.5 ML DISP.SYRIN. VAX IM ONE (14:00)
[2017-07-17] MEDS ORDERED: ACETAMINOPHEN 500 MG TABLET PO ONE (14:00)
[2017-07-17] MEDS: IV NORMAL SALINE 1000ML BAG 1,000 ML IV SCH ×3 (14:00→16:15)
[2017-07-17 14:11] LABS: BASO # 0.1 x10^3/uL (0.0-0.2); BASO % 1 % (0-3); EOS % 1 % (0-3); HEMATOCRIT 29.9 % (36.0-47.0); HEMOGLOBIN 9.5 g/dL (12.0-15.5); LYMPH % 12 % (24-48); MEAN CORPUSCULAR HEMOGLOBIN 27 pg (25-35); MEAN CORPUSCULAR HGB CONC 32 g/dL (31-37); MEAN CORPUSCULAR VOLUME 85 fL (79-100); MONO % 4 % (0-9); NEUT % 83 % (31-73); PLATELET COUNT 302 x10^3/uL (140-400); RED BLOOD COUNT 3.51 x10^6/uL (3.50-5.40); RED CELL DISTRIBUTION WIDTH 15.2 % (11.5-14.5); WHITE BLOOD COUNT 17.6 x10^3/uL (4.0-11.0)
[2017-07-17 14:27] LABS: CALCIUM 9.2 mg/dL (8.5-10.1); CREATININE 0.8 mg/dL (0.6-1.0); GFR 83.7; POTASSIUM 3.6 mmol/L (3.5-5.1)
[2017-07-17 14:31] LABS: BILIRUBIN,URINE NEGATIVE (NEG); GLUCOSE,URINE >=1000 mg/dL (NEG); NITRITE,URINE NEGATIVE (NEG); PH,URINE 6.5; PROTEIN,URINE 30 mg/dL (NEG-TRACE)
[2017-07-17 14:42] LABS: BACTERIA,URINE FEW /HPF (0-FEW); RBC,URINE 0 /HPF (0-2); SQUAMOUS EPITHELIAL CELL,UR OCC /LPF; WBC,URINE OCC /HPF (0-4)
[2017-07-17 14:59] LABS: OVALOCYTES OCC; PLT ESTIMATE INCREASED (ADEQUATE); POLYCHROMASIA SLIGHT; STOMATOCYTES OCC; TARGET CELLS OCC
[2017-07-17] MEDS ORDERED: VANCOMYCIN 750 MG in IV NORMAL SALINE 250ML 250 ML IV ONE (15:30)
[2017-07-17] MEDS ORDERED: MORPHINE SULFATE 4 MG/ML DISP.SYRIN. IV PRN ×2 (16:15)
[2017-07-17] MEDS ORDERED: DEXTROSE 50% 25 GM / 50ML DISP.SYRIN. IV PRN (16:15)
[2017-07-17] MEDS ORDERED: hydrALAZINE 20 MG/ML VIAL. IVP PRN (16:15)
[2017-07-17] MEDS ORDERED: IBUPROFEN 600 MG TABLET. PO PRN (16:15)
[2017-07-17] MEDS ORDERED: HYDROcodone/APAP 5/325MG 1 TAB TABLET PO ONE (16:15)
[2017-07-17] MEDS ORDERED: IV NORMAL SALINE 1000ML BAG 1,000 ML IV ONE ×2 (16:15)
[2017-07-17] MEDS ORDERED: PIP/TAZO PER PHARMACY MC PRN (16:15)
[2017-07-17] MEDS ORDERED: ONDANSETRON PF 4 MG/2 ML VIAL. IV PRN (16:15)
[2017-07-17] MEDS ORDERED: ACETAMINOPHEN 325 MG TABLET. PO PRN (16:15)
[2017-07-17] MEDS ORDERED: DOCUSATE SODIUM 100 MG CAPSULE. PO PRN (16:15)
--- NOTE | 2017-07-17 16:17 | PDOC1 ---
History and Physical Date of Admission Date of Admission 07/17/17 Identification/Chief Complaint Chief Complaint chin pain Problems: Source Source: Chart review, Patient History of Present Illness History of Present Illness HPI HPI Patient is a 32 year old female with history of diabetes type 1, came to ER today for chin abscess x6-7ds. [facility] can speak some Turkmen. She said she use some insulin bid, but cannot tell me the name and dose. Pt cannot tell me how the wound started. She denies fever, chills, cough, sob, chest pain, N/V, abd pain. She said the wound is open for a few days and has some bloody drainage. T99.7, wbc [address] Mina Past Medical History Endocrine: Diabetes Past Surgical History Past Surgical History: Family History Family History: Hypertension Social History Smoke: No ALCOHOL: none Drugs: None Current Problem List Problem List Problems Medical Problems: (1) Fever Status: Acute (2) Sepsis Status: Acute Current Medications Current Medications Current Medications Medications (Trade) Dose Ordered Sig/Rafaela Start Time Stop Time Status Last Admin Dose Admin Acetaminophen (Tylenol) 1,000 mg 1X ONCE 07/17/17 14:00 07/17/17 14:01 DC 07/17/17 14:02 1,000 MG Diphtheria/ Tetanus/Acell Pertussis (Boostrix) 0.5 ml ONCE ONCE 07/17/17 14:00 07/17/17 14:01 DC 07/17/17 14:03 0.5 ML Sodium Chloride 500 ml @ 1,000 mls/hr PRN Q30MIN PRN 07/17/17 13:45 Vancomycin HCl (Vanco Per Pharmacy) 1 each DAILY 07/18/17 09:00 UNV Vancomycin HCl 750 mg/Sodium Chloride 250 ml @ 250 mls/hr 1X ONCE 07/17/17 15:30 07/17/17 16:29 07/17/17 15:33 250 MLS/HR Allergies Allergies Allergies Coded Allergies Type Severity Reaction Last Updated Verified No Known Drug Allergies 03/28/17 No ROS Review of System CONSTITUTIONAL: No fever or chills EYES: No recent changes SKIN: No rash or itching CARDIOVASCULAR: No chest pain, syncope, palpitations, or edema RESPIRATORY: No SOB or cough GASTROINTESTINAL: No nausea, vomiting or abdominal pain NEUROLOGICAL: No headaches or weakness ENDOCRINE: No cold or heat intolerance GENITOURINARY: No urgency or frequency of urination MUSCULOSKELETAL: No back pain or joint pain LYMPHATICS: No enlarged lymph nodes PSYCHIATRIC: No anxiety or depression Physical Exam Physical Exam GEN.: No apparent distress. Alert and oriented. HEENT: Head is normocephalic, atraumatic. chin has a open wound with some bloody discharge, induration, bl jaws are also red and mild swollen. NECK: Supple. LUNGS: Clear to auscultation. HEART: RRR, S1, S2 present. Peripheral pulses intact ABDOMEN: Soft, nontender. Positive bowel sounds. EXTREMITIES: Without any cyanosis. bl upper and lower ext very thin. NEUROLOGIC: Normal speech, normal tone PSYCHIATRIC: Normal affect, normal mood. Vitals Vitals Vital Signs Date Time Temp Pulse Resp B/P (MAP) Pulse Ox O2 Delivery O2 Flow Rate FiO2 07/17/17 15:15 127 20 110/68 (82) 100 07/17/17 13:23 99.7 Room Air 99.7 Labs Labs Laboratory Tests Test 07/17/17 12:53 07/17/17 13:30 07/17/17 13:52 07/17/17 14:20 Bedside Urine HCG, Qualitative Hcg negative (Negative) Glucose (Fingerstick) 244 mg/dL (70-99) White Blood Count 17.6 x10^3/uL (4.0-11.0) Red Blood Count 3.51 x10^6/uL (3.50-5.40) Hemoglobin 9.5 g/dL (12.0-15.5) Hematocrit 29.9 % (36.0-47.0) Mean Corpuscular Volume 85 fL (79-100) Mean Corpuscular Hemoglobin 27 pg (25-35) Mean Corpuscular Hemoglobin Concent 32 g/dL (31-37) Red Cell Distribution Width 15.2 % (11.5-14.5) Platelet Count 302 x10^3/uL (140-400) Neutrophils (%) (Auto) 83 % (31-73) Lymphocytes (%) (Auto) 12 % (24-48) Monocytes (%) (Auto) 4 % (0-9) Eosinophils (%) (Auto) 1 % (0-3) Basophils (%) (Auto) 1 % (0-3) Neutrophils # (Auto) 14.6 x10^3uL (1.8-7.7) Lymphocytes # (Auto) 2.0 x10^3/uL (1.0-4.8) Monocytes # (Auto) 0.8 x10^3/uL (0.0-1.1) Eosinophils # (Auto) 0.1 x10^3/uL (0.0-0.7) Basophils # (Auto) 0.1 x10^3/uL (0.0-0.2) Segmented Neutrophils % 90 % (35-66) Lymphocytes % 6 % (24-48) Monocytes % 4 % (0-10) Platelet Estimate Increased (ADEQUATE) Platelet Clumps, EDTA Present Large Platelets Occ Polychromasia Slight Target Cells Occ Ovalocytes Occ Stomatocytes Occ Erythrocyte Sedimentation Rate 134 (0-25) Sodium Level 132 mmol/L (136-145) Potassium Level 3.6 mmol/L (3.5-5.1) Chloride Level 95 mmol/L (98-107) Carbon Dioxide Level 27 mmol/L (21-32) Anion Gap 10 (6-14) Blood Urea Nitrogen 8 mg/dL (7-20) Creatinine 0.8 mg/dL (0.6-1.0) Estimated GFR (Cockcroft-Gault) 83.7 Glucose Level 240 mg/dL (70-99) Lactic Acid Level 2.3 mmol/L (0.4-2.0) Calcium Level 9.2 mg/dL (8.5-10.1) C-Reactive Protein, Quantitative 103.8 mg/L (0-3.3) Procalcitonin 0.26 ng/mL (0.00-0.10) Urine Color Yellow Urine Clarity Clear Urine pH 6.5 Urine Specific [place] 1.015 Urine Protein 30 mg/dL (NEG-TRACE) Urine Glucose (UA) >=1000 mg/dL (NEG) Urine Ketones (Stick) Negative mg/dL (NEG) Urine Blood Negative (NEG) Urine Nitrite Negative (NEG) Urine Bilirubin Negative (NEG) Urine Urobilinogen Dipstick 1.0 mg/dL (0.2 mg/dL) Urine Leukocyte Esterase Negative (NEG) Urine RBC 0 /HPF (0-2) Urine WBC Occ /HPF (0-4) Urine Squamous Epithelial Cells Occ /LPF Urine Bacteria Few /HPF (0-FEW) Laboratory Tests Test 07/17/17 12:53 07/17/17 13:30 07/17/17 13:52 07/17/17 14:20 Bedside Urine HCG, Qualitative Hcg negative (Negative) Glucose (Fingerstick) 244 mg/dL (70-99) White Blood Count 17.6 x10^3/uL (4.0-11.0) Red Blood Count 3.51 x10^6/uL (3.50-5.40) Hemoglobin 9.5 g/dL (12.0-15.5) Hematocrit 29.9 % (36.0-47.0) Mean Corpuscular Volume 85 fL (79-100) Mean Corpuscular Hemoglobin 27 pg (25-35) Mean Corpuscular Hemoglobin Concent 32 g/dL (31-37) Red Cell Distribution Width 15.2 % (11.5-14.5) Platelet Count 302 x10^3/uL (140-400) Neutrophils (%) (Auto) 83 % (31-73) Lymphocytes (%) (Auto) 12 % (24-48) Monocytes (%) (Auto) 4 % (0-9) Eosinophils (%) (Auto) 1 % (0-3) Basophils (%) (Auto) 1 % (0-3) Neutrophils # (Auto) 14.6 x10^3uL (1.8-7.7) Lymphocytes # (Auto) 2.0 x10^3/uL (1.0-4.8) Monocytes # (Auto) 0.8 x10^3/uL (0.0-1.1) Eosinophils # (Auto) 0.1 x10^3/uL (0.0-0.7) Basophils # (Auto) 0.1 x10^3/uL (0.0-0.2) Segmented Neutrophils % 90 % (35-66) Lymphocytes % 6 % (24-48) Monocytes % 4 % (0-10) Platelet Estimate Increased (ADEQUATE) Platelet Clumps, EDTA Present Large Platelets Occ Polychromasia Slight Target Cells Occ Ovalocytes Occ Stomatocytes Occ Erythrocyte Sedimentation Rate 134 (0-25) Sodium Level 132 mmol/L (136-145) Potassium Level 3.6 mmol/L (3.5-5.1) Chloride Level 95 mmol/L (98-107) Carbon Dioxide Level 27 mmol/L (21-32) Anion Gap 10 (6-14) Blood Urea Nitrogen 8 mg/dL (7-20) Creatinine 0.8 mg/dL (0.6-1.0) Estimated GFR (Cockcroft-Gault) 83.7 Glucose Level 240 mg/dL (70-99) Lactic Acid Level 2.3 mmol/L (0.4-2.0) Calcium Level 9.2 mg/dL (8.5-10.1) C-Reactive Protein, Quantitative 103.8 mg/L (0-3.3) Procalcitonin 0.26 ng/mL (0.00-0.10) Urine Color Yellow Urine Clarity Clear Urine pH 6.5 Urine Specific [place] 1.015 Urine Protein 30 mg/dL (NEG-TRACE) Urine Glucose (UA) >=1000 mg/dL (NEG) Urine Ketones (Stick) Negative mg/dL (NEG) Urine Blood Negative (NEG) Urine Nitrite Negative (NEG) Urine Bilirubin Negative (NEG) Urine Urobilinogen Dipstick 1.0 mg/dL (0.2 mg/dL) Urine Leukocyte Esterase Negative (NEG) Urine RBC 0 /HPF (0-2) Urine WBC Occ /HPF (0-4) Urine Squamous Epithelial Cells Occ /LPF Urine Bacteria Few /HPF (0-FEW) VTE Prophylaxis Ordered VTE Prophylaxis Devices: Yes VTE Pharmacological Prophylaxi: Yes Assessment/Plan Assessment/Plan chin Cellulitis/abscess uncontrolled dm1 sepsis with tachycardia, Leukocytosis lactate acidosis normacytic anemia plan: id consult add anabell madison for now, fu bcx neck CT w contrast ivf with bolus levemir 15u qhs,, aspart 5u tid, ssi, check hb1c pain control dvt ppx anemia labs repeat all labs tmr DHIRAJ MATT MD Jul 17, 2017 16:16
[2017-07-17] MEDS ORDERED: IOHEXOL 300 MG/ML 75 ML VIAL IV ONE (16:30)
[2017-07-17] MEDS ORDERED: CONTRAST GIVEN MC PRN (16:30)
[2017-07-17] MEDS ORDERED: PIPERACILLIN/TAZOBACTAM 4.5 GM in IV NORMAL SALINE 100ML 100 ML IV ONE (16:30)
[2017-07-17] MEDS: INSULIN ASPART 300 UNITS/3 ML INSULN.PEN SQ SCH ×2 (16:30→17:00)
--- NOTE | 2017-07-17 17:04 | RAD ---
CT of the neck with contrast, 07/17/2017: History: Chin swelling and rash Multidetector CT imaging was performed following an IV bolus injection of iodinated contrast material. Multiplanar reconstructions were produced. There is soft tissue swelling and subcutaneous edema along the anterior aspect of the chin. No discrete fluid collection is seen to suggest abscess. No underlying mandibular abnormality is detected. The submandibular glands are unremarkable. A right submandibular lymph node measures 9 mm in short axis dimension. Several other small upper cervical lymph nodes are noted bilaterally. No definite pathologically enlarged lymph nodes are seen. The laryngeal region is unremarkable. No significant airway narrowing is evident. The thyroid gland is of normal size. The parotid glands are unremarkable. There is only slight mucosal thickening in the right maxillary sinus. The other paranasal sinuses are clear. IMPRESSION: Nonspecific soft tissue swelling along the anterior aspect of the chin compatible with cellulitis or contusion. PQRS Compliance Statement: One or more of the following individualized dose reduction techniques were utilized for this examination: 1. Automated exposure control 2. Adjustment of the mA and/or kV according to patient size 3. Use of iterative reconstruction technique
[2017-07-17] MEDS: VANCOMYCIN PER PHARMACY MC PRN (18:09)
[2017-07-17 18:20] VITALS: BP 120/71
[2017-07-17 19:05] VITALS: BP 105/64
[2017-07-17] MEDS ORDERED: VANCOMYCIN 1.75 GM in IV NORMAL SALINE 500ML BAG 500 ML IV SCH (21:00)
[2017-07-17] MEDS ORDERED: INSULIN DETEMIR 300 UNITS/3 ML INSULN.PEN. SQ SCH (21:00)
[2017-07-17] MEDS: ENOXAPARIN 30 MG/0.3 ML SYRINGE. SQ SCH (21:01)
[2017-07-17] MEDS: traMADol 50 MG TABLET PO PRN (22:48)
[2017-07-17 23:05] VITALS: BP 141/86
--- NOTE | 2017-07-18 00:01 | ACF ---
Admission Forms Criteria SEPSIS and Other Febrile Illness Without Focal Infection (Place 'X' for any and all applicable criteria): Admission to inpatient status for two midnights or more is indicated for ANY ONE of the following (1)(2)(3): [ ] I. Bacteremia [ ]II. Suspected or identified specific infection requiring hospitalization (eg, meningitis, endocarditis) [ ]III. Hemodynamic instability [ ]IV. Temperature > 104.9 0F (40.5 0C) (oral) [ ]V. Core (rectal) temperature < 95 0F (35 0C) (eg, thought to be due to infection) [ ]. Altered mental status that is severe or persistent [X]VII. Failure or unavailability of outpatient antimicrobial treatment [ ]VIII. Hypoxemia [ ]IX. Seizures [ ]X. New coagulopathy (eg, reduced platelet count consistent with disseminated intravascular coagulation) [ ]XI. Inpatient admission required [B] rather than observation care because of 1 or more of the following 1) Tachypnea not responsive to outpatient or observation treatment 2) Metabolic disorder (eg, hypoglycemia, hyperglycemia, metabolic acidosis ) that persists despite outpatient and observation care treatment 3) Evidence of end-organ dysfunction (eg, rising creatinine, myocardial ischemia, rising liver function tests) that is severe or persists despite observation care treatment 4) Temperature > 103.1 0F (39.5 0C) (oral) that is not responsive to observation care treatment 5) Dehydration that is severe or persistent 6) Parenteral antimicrobial regimen that must be implemented on inpatient basis (eg, infusion or monitoring needs beyond capabilities of outpatient parenteral therapy) 7) Strict or protective (eg, laminar flow) isolation 8) Other condition, treatment or monitoring requiring inpatient admission Extended stay beyond goal length of stay may be needed for(1)(3) [ ]a) Persistent Hypotension [ ]b) Positive blood cultures [ ]c) Lack of improvement on antimicrobial treatment (eg, continued fever) [ ]d) Active comorbid illness (eg, heart failure, renal failure) [ ]e) High-risk febrile neutropenia [ ]f) Insufficient oral intake [ ]g) insufficient oral intake The original [facility] [employer] content created by [employer] has been revised. The portions of the content which have been revised are identified through the use of italic text, and [facility] [employer] has neither reviewed nor approved the modified material. All other unmodified content is copyright [facility]. Please see references footnoted in the original [facility] edition 2015 Admission Criteria Met?: Yes RUBEN HADDAD Jul 18, 2017 00:01
[2017-07-18] MEDS: PIPERACILLIN/TAZOBACTAM 3.375 GM in IV NORMAL SALINE 50ML 50 ML IV SCH ×5 (00:33→23:52)
[2017-07-18] MEDS: IV NORMAL SALINE 1000ML BAG 1,000 ML IV SCH ×3 (02:15→23:52)
[2017-07-18 03:05] VITALS: BP 130/77
[2017-07-18] MEDS: ACETAMINOPHEN 325 MG TABLET. PO PRN ×2 (05:22→20:10)
[2017-07-18 05:51] LABS: BASO % 0 % (0-3); EOS % 3 % (0-3); HEMATOCRIT 25.5 % (36.0-47.0); HEMOGLOBIN 8.3 g/dL (12.0-15.5); LYMPH # 1.3 x10^3/uL (1.0-4.8); LYMPH % 10 % (24-48); MEAN CORPUSCULAR HEMOGLOBIN 27 pg (25-35); MEAN CORPUSCULAR HGB CONC 32 g/dL (31-37); MEAN CORPUSCULAR VOLUME 84 fL (79-100); MONO % 3 % (0-9); NEUT % 84 % (31-73); PLATELET COUNT 248 x10^3/uL (140-400); RED BLOOD COUNT 3.03 x10^6/uL (3.50-5.40); RED CELL DISTRIBUTION WIDTH 15.7 % (11.5-14.5); WHITE BLOOD COUNT 13.1 x10^3/uL (4.0-11.0)
--- NOTE | 2017-07-18 06:12 | EKG ---
[facility] [address] [place] [address] Test Date: 2017-07-17 Test Time: 14:54:41 Pat Name: GODWIN MARCUM Department: Room: 648 1 Gender: F [employer] Advisor: : [id number] Requested By: DHIRAJ MATT Order Number: [id number] Reading MD: Cate Caldera Measurements Intervals [place] Rate: 129 P: 43 [place]: 114 QRS: 39 QRSD: 66 T: 14 QT: 314 QTc: 462 Interpretive Statements SINUS TACHYCARDIA OTHERWISE NORMAL ECG Electronically Signed On 07-19-2017 16:07:35 CDT by Cate Caldera
[2017-07-18 06:13] LABS: CREATININE 0.9 mg/dL (0.6-1.0); POTASSIUM 3.6 mmol/L (3.5-5.1)
[2017-07-18 06:23] LABS: % SAT IRON 5 % (15-34); IRON,SERUM 13 ug/dL (50-170)
[2017-07-18 07:00] VITALS: BP 106/71
[2017-07-18] MEDS: INSULIN ASPART 300 UNITS/3 ML INSULN.PEN SQ SCH ×5 (08:04→17:35)
--- NOTE | 2017-07-18 08:32 | PDOC2 ---
ETHEL MARCH HELP DESK ANALYST 07/18/17 0831: CONSULT Date of Consult Date of Consult DATE: 07/18/17 TIME: 08:27 Reason for Consult Reason for Consult: chin abscess Referring Physician Referring Physician: Dr Cristina Identification/Chief Complaint Chief Complaint chin pain Problems: Source Source: Chart review, Patient History of Present Illness Reason for Visit: 1 week with pain and swelling to chin, she is unsure of any injury, bite, or scratch to area. It is draining some bloody drainage. Very tender to touch. No fevers or chills Past Medical History Cardiovascular: HTN CENTRAL NERVOUS SYSTEM: Periperal neuropathy Endocrine: Diabetes Past Surgical History Past Surgical History: Family History Family History: Hypertension Social History No ALCOHOL: none Drugs: None Current Problem List Problem List Problems Medical Problems: (1) Abscess or cellulitis of chin Status: Acute (2) Fever Status: Acute (3) Sepsis Status: Acute (4) Tachycardia Status: Acute Current Medications Current Medications Current Medications Sodium Chloride 960 ml @ 960 mls/hr Q1H IV Last administered on 07/17/17 14: 00; Start 07/17/17 at 13:31; Stop 07/18/17 at 00:43; Status DC Sodium Chloride 500 ml @ 1,000 mls/hr PRN Q30MIN PRN IV SEE COMMENTS; Start at 13:45 Acetaminophen (Tylenol) 1,000 mg 1X ONCE PO Last administered on 07/17/17 14: 02; Start 07/17/17 at 14:00; Stop 07/17/17 at 14:01; Status DC Diphtheria/ Tetanus/Acell Pertussis (Boostrix) 0.5 ml ONCE ONCE VAX IM Last administered on 07/17/17 14:03; Start 07/17/17 at 14:00; Stop 07/17/17 at 14:01 ; Status DC Vancomycin HCl (Vanco Per Pharmacy) 1 each DAILY MC ; Start 07/18/17 at 09:00; Status UNV Vancomycin HCl 750 mg/Sodium Chloride 250 ml @ 250 mls/hr 1X ONCE IV Last administered on 07/17/17 15:33; Start 07/17/17 at 15:30; Stop 07/17/17 at 16:29 ; Status DC Sodium Chloride 1,000 ml @ 1,000 mls/hr 1X ONCE IV Last administered on 16:15; Start 07/17/17 at 16:15; Stop 07/17/17 at 17:14; Status DC Sodium Chloride 1,000 ml @ 100 mls/hr Q10H IV ; Start 07/17/17 at 16:15 Acetaminophen (Tylenol) 650 mg PRN Q6HRS PRN PO FEVER Last administered on 07/18 05:22; Start 07/17/17 at 16:15 Ondansetron HCl (Zofran) 4 mg PRN Q6HRS PRN IV NAUSEA/VOMITING; Start 07/17/17 at 16:15 Morphine Sulfate 2 mg PRN Q2HR PRN IV PAIN; Start 07/17/17 at 16:15 Tramadol HCl (Ultram) 50 mg PRN Q6HRS PRN PO PAIN Last administered on 22:48; Start 07/17/17 at 16:15 Hydralazine HCl (Apresoline) 10 mg PRN Q4HRS PRN IVP ELEVATED BP, SEE COMMENTS ; Start 07/17/17 at 16:15 Docusate Sodium (Colace) 100 mg PRN DAILY PRN PO CONSTIPATION; Start 07/17/17 at 16:15 Vancomycin HCl (Vanco Per Pharmacy) 1 each PRN DAILY PRN MC SEE COMMENTS Last administered on 07/17/17 18:09; Start 07/17/17 at 16:15 Vancomycin HCl 1.75 gm/Sodium Chloride 500 ml @ 250 mls/hr BID IV ; Start 07/17 at 21:00; Status UNV Piperacillin Sod/ Tazobactam Sod 4.5 gm/Sodium Chloride 100 ml @ 200 mls/hr 1X ONCE IV Last administered on 07/17/17 17:48; Start 07/17/17 at 16:30; Stop 07/17/17 at 16:59; Status DC Piperacillin Sod/ Tazobactam Sod (Zosyn Per Pharmacy) 1 each PRN DAILY PRN MC SEE COMMENTS; Start 07/17/17 at 16:15 Enoxaparin Sodium (Lovenox 30mg Syringe) 30 mg Q24H SQ Last administered on 21:01; Start 07/17/17 at 21:00 Acetaminophen/ Hydrocodone Bitart (Lortab 5/325) 1 tab 1X ONCE PO Last administered on 07/17/17 17:56; Start 07/17/17 at 16:15; Stop 07/17/17 at 16:21 ; Status DC Insulin Aspart (NovoLOG) 0-9 UNITS TIDWMEALS SQ Last administered on 07/18/17 08:05; Start 07/17/17 at 17:00 Dextrose (Dextrose 50%-Water Syringe) 12.5 gm PRN Q15MIN PRN IV SEE COMMENTS; Start 07/17/17 at 16:15 Insulin Detemir (Levemir) 15 units QHS SQ Last administered on 07/17/17 21:08 ; Start 07/17/17 at 21:00 Insulin Aspart (NovoLOG) 5 units TIDAC SQ Last administered on 07/18/17 08:04 ; Start 07/17/17 at 16:30 Iohexol (Omnipaque 300 Mg/ml) 70 ml 1X ONCE IV Last administered on 07/17/17 16:33; Start 07/17/17 at 16:30; Stop 07/17/17 at 16:31; Status DC Ondansetron HCl (Zofran) 4 mg PRN Q8HRS PRN IV NAUSEA/VOMITING; Start 07/17/17 at 16:15; Stop 07/18/17 at 16:14 Morphine Sulfate 4 mg PRN Q2HR PRN IV PAIN; Start 07/17/17 at 16:15; Stop 07/18 at 16:14 Acetaminophen (Tylenol) 650 mg PRN Q4HRS PRN PO FEVER; Start 07/17/17 at 16:15 ; Stop 07/18/17 at 16:14 Sodium Chloride 1,000 ml @ 125 mls/hr 1X ONCE IV Last administered on 21:00; Start 07/17/17 at 16:15; Stop 07/18/17 at 00:14; Status DC Ibuprofen (Motrin) 600 mg PRN Q8HRS PRN PO FEVER; Start 07/17/17 at 16:15 Info (Do NOT chart on this entry -- for MONITORING) 1 each PRN DAILY PRN MC SEE COMMENTS; Start 07/17/17 at 16:30; Stop 07/19/17 at 16:29 Piperacillin Sod/ Tazobactam Sod 3.375 gm/Sodium Chloride 50 ml @ 100 mls/hr Q6HRS IV Last administered on 07/18/17t 05:21; Start 07/18/17 at 00:00 Vancomycin HCl 500 mg/Sodium Chloride 100 ml @ 100 mls/hr Q24H IV ; Start 07/18 at 15:30 Active Scripts Active Reported Novolog (Insulin Aspart) 100 Unit/1 Ml Vial 32 Unit SQ [id number] Allergies Allergies: Coded Allergies: No Known Drug Allergies (Unverified , 03/28/17) ROS General: No: Malaise, Appetite (loss) PSYCHOLOGICAL ROS: No: Anxiety, Depression Eyes: No Blurry vision, No Double vision HEENT: No: Heacaches Hematological and Lymphatic: No: Bleeding Problems, Blood Clots Respiratory: No: Cough, Shortness of breath Cardiovascular: No Chest Pain Gastrointestinal: No Abdominal Pain, No Constipation Genitourinary: No Dysuria, No Hematuria Musculoskeletal: No Joint Pain, No Muscle Pain Neurological: Yes Numbness/Tingling, No Confusion Skin: Yes Other (see hpi) Physical Exam General: Alert, Oriented X3, Cooperative, No acute distress HEENT: Other (chin with erythema, swelling, small pustules, necrosis centrally) Lungs: Clear to auscultation, Normal air movement Heart: Regular rate, Normal S1, Normal S2 Abdomen: Soft, No tenderness Extremities: No clubbing, No cyanosis Neuro: Normal gait, Normal speech Psych/Mental Status: Mental status NL, Mood NL MUSCULOSKELETAL: No deformity, No swelling Vitals VITALS Vital Signs Date Time Temp Pulse Resp B/P (MAP) Pulse Ox O2 Delivery O2 Flow Rate FiO2 07/18/17 07:00 97.9 119 18 106/71 (83) 100 Room Air 97.9 Labs Labs Laboratory Tests Test 07/17/17 12:53 07/17/17 13:30 07/17/17 13:52 07/17/17 14:20 Bedside Urine HCG, Qualitative Hcg negative (Negative) Glucose (Fingerstick) 244 mg/dL (70-99) White Blood Count 17.6 x10^3/uL (4.0-11.0) Red Blood Count 3.51 x10^6/uL (3.50-5.40) Hemoglobin 9.5 g/dL (12.0-15.5) Hematocrit 29.9 % (36.0-47.0) Mean Corpuscular Volume 85 fL (79-100) Mean Corpuscular Hemoglobin 27 pg (25-35) Mean Corpuscular Hemoglobin Concent 32 g/dL (31-37) Red Cell Distribution Width 15.2 % (11.5-14.5) Platelet Count 302 x10^3/uL (140-400) Neutrophils (%) (Auto) 83 % (31-73) Lymphocytes (%) (Auto) 12 % (24-48) Monocytes (%) (Auto) 4 % (0-9) Eosinophils (%) (Auto) 1 % (0-3) Basophils (%) (Auto) 1 % (0-3) Neutrophils # (Auto) 14.6 x10^3uL (1.8-7.7) Lymphocytes # (Auto) 2.0 x10^3/uL (1.0-4.8) Monocytes # (Auto) 0.8 x10^3/uL (0.0-1.1) Eosinophils # (Auto) 0.1 x10^3/uL (0.0-0.7) Basophils # (Auto) 0.1 x10^3/uL (0.0-0.2) Segmented Neutrophils % 90 % (35-66) Lymphocytes % 6 % (24-48) Monocytes % 4 % (0-10) Platelet Estimate Increased (ADEQUATE) Platelet Clumps, EDTA Present Large Platelets Occ Polychromasia Slight Target Cells Occ Ovalocytes Occ Stomatocytes Occ Erythrocyte Sedimentation Rate 134 (0-25) Sodium Level 132 mmol/L (136-145) Potassium Level 3.6 mmol/L (3.5-5.1) Chloride Level 95 mmol/L (98-107) Carbon Dioxide Level 27 mmol/L (21-32) Anion Gap 10 (6-14) Blood Urea Nitrogen 8 mg/dL (7-20) Creatinine 0.8 mg/dL (0.6-1.0) Estimated GFR (Cockcroft-Gault) 83.7 Glucose Level 240 mg/dL (70-99) Lactic Acid Level 2.3 mmol/L (0.4-2.0) Calcium Level 9.2 mg/dL (8.5-10.1) C-Reactive Protein, Quantitative 103.8 mg/L (0-3.3) Procalcitonin 0.26 ng/mL (0.00-0.10) Urine Color Yellow Urine Clarity Clear Urine pH 6.5 Urine Specific [place] 1.015 Urine Protein 30 mg/dL (NEG-TRACE) Urine Glucose (UA) >=1000 mg/dL (NEG) Urine Ketones (Stick) Negative mg/dL (NEG) Urine Blood Negative (NEG) Urine Nitrite Negative (NEG) Urine Bilirubin Negative (NEG) Urine Urobilinogen Dipstick 1.0 mg/dL (0.2 mg/dL) Urine Leukocyte Esterase Negative (NEG) Urine RBC 0 /HPF (0-2) Urine WBC Occ /HPF (0-4) Urine Squamous Epithelial Cells Occ /LPF Urine Bacteria Few /HPF (0-FEW) Test 07/17/17 18:25 07/17/17 19:47 07/18/17 04:00 07/18/17 07:21 Lactic Acid Level 1.3 mmol/L (0.4-2.0) Glucose (Fingerstick) 134 mg/dL (70-99) 226 mg/dL (70-99) White Blood Count 13.1 x10^3/uL (4.0-11.0) Red Blood Count 3.03 x10^6/uL (3.50-5.40) Hemoglobin 8.3 g/dL (12.0-15.5) Hematocrit 25.5 % (36.0-47.0) Mean Corpuscular Volume 84 fL (79-100) Mean Corpuscular Hemoglobin 27 pg (25-35) Mean Corpuscular Hemoglobin Concent 32 g/dL (31-37) Red Cell Distribution Width 15.7 % (11.5-14.5) Platelet Count 248 x10^3/uL (140-400) Neutrophils (%) (Auto) 84 % (31-73) Lymphocytes (%) (Auto) 10 % (24-48) Monocytes (%) (Auto) 3 % (0-9) Eosinophils (%) (Auto) 3 % (0-3) Basophils (%) (Auto) 0 % (0-3) Neutrophils # (Auto) 11.0 x10^3uL (1.8-7.7) Lymphocytes # (Auto) 1.3 x10^3/uL (1.0-4.8) Monocytes # (Auto) 0.3 x10^3/uL (0.0-1.1) Eosinophils # (Auto) 0.4 x10^3/uL (0.0-0.7) Basophils # (Auto) 0.0 x10^3/uL (0.0-0.2) Sodium Level 136 mmol/L (136-145) Potassium Level 3.6 mmol/L (3.5-5.1) Chloride Level 101 mmol/L (98-107) Carbon Dioxide Level 25 mmol/L (21-32) Anion Gap 10 (6-14) Blood Urea Nitrogen 6 mg/dL (7-20) Creatinine 0.9 mg/dL (0.6-1.0) Estimated GFR (Cockcroft-Gault) 73.0 Glucose Level 242 mg/dL (70-99) Calcium Level 8.0 mg/dL (8.5-10.1) Iron Level 13 ug/dL (50-170) Total Iron Binding Capacity 263 ug/dL (250-450) Iron Saturation 5 % (15-34) Ferritin 175 ng/mL (8-252) Laboratory Tests Test 07/17/17 12:53 07/17/17 13:30 07/17/17 13:52 07/17/17 14:20 Bedside Urine HCG, Qualitative Hcg negative (Negative) Glucose (Fingerstick) 244 mg/dL (70-99) White Blood Count 17.6 x10^3/uL (4.0-11.0) Red Blood Count 3.51 x10^6/uL (3.50-5.40) Hemoglobin 9.5 g/dL (12.0-15.5) Hematocrit 29.9 % (36.0-47.0) Mean Corpuscular Volume 85 fL (79-100) Mean Corpuscular Hemoglobin 27 pg (25-35) Mean Corpuscular Hemoglobin Concent 32 g/dL (31-37) Red Cell Distribution Width 15.2 % (11.5-14.5) Platelet Count 302 x10^3/uL (140-400) Neutrophils (%) (Auto) 83 % (31-73) Lymphocytes (%) (Auto) 12 % (24-48) Monocytes (%) (Auto) 4 % (0-9) Eosinophils (%) (Auto) 1 % (0-3) Basophils (%) (Auto) 1 % (0-3) Neutrophils # (Auto) 14.6 x10^3uL (1.8-7.7) Lymphocytes # (Auto) 2.0 x10^3/uL (1.0-4.8) Monocytes # (Auto) 0.8 x10^3/uL (0.0-1.1) Eosinophils # (Auto) 0.1 x10^3/uL (0.0-0.7) Basophils # (Auto) 0.1 x10^3/uL (0.0-0.2) Segmented Neutrophils % 90 % (35-66) Lymphocytes % 6 % (24-48) Monocytes % 4 % (0-10) Platelet Estimate Increased (ADEQUATE) Platelet Clumps, EDTA Present Large Platelets Occ Polychromasia Slight Target Cells Occ Ovalocytes Occ Stomatocytes Occ Erythrocyte Sedimentation Rate 134 (0-25) Sodium Level 132 mmol/L (136-145) Potassium Level 3.6 mmol/L (3.5-5.1) Chloride Level 95 mmol/L (98-107) Carbon Dioxide Level 27 mmol/L (21-32) Anion Gap 10 (6-14) Blood Urea Nitrogen 8 mg/dL (7-20) Creatinine 0.8 mg/dL (0.6-1.0) Estimated GFR (Cockcroft-Gault) 83.7 Glucose Level 240 mg/dL (70-99) Lactic Acid Level 2.3 mmol/L (0.4-2.0) Calcium Level 9.2 mg/dL (8.5-10.1) C-Reactive Protein, Quantitative 103.8 mg/L (0-3.3) Procalcitonin 0.26 ng/mL (0.00-0.10) Urine Color Yellow Urine Clarity Clear Urine pH 6.5 Urine Specific [place] 1.015 Urine Protein 30 mg/dL (NEG-TRACE) Urine Glucose (UA) >=1000 mg/dL (NEG) Urine Ketones (Stick) Negative mg/dL (NEG) Urine Blood Negative (NEG) Urine Nitrite Negative (NEG) Urine Bilirubin Negative (NEG) Urine Urobilinogen Dipstick 1.0 mg/dL (0.2 mg/dL) Urine Leukocyte Esterase Negative (NEG) Urine RBC 0 /HPF (0-2) Urine WBC Occ /HPF (0-4) Urine Squamous Epithelial Cells Occ /LPF Urine Bacteria Few /HPF (0-FEW) Test 07/17/17 18:25 07/17/17 19:47 07/18/17 04:00 07/18/17 07:21 Lactic Acid Level 1.3 mmol/L (0.4-2.0) Glucose (Fingerstick) 134 mg/dL (70-99) 226 mg/dL (70-99) White Blood Count 13.1 x10^3/uL (4.0-11.0) Red Blood Count 3.03 x10^6/uL (3.50-5.40) Hemoglobin 8.3 g/dL (12.0-15.5) Hematocrit 25.5 % (36.0-47.0) Mean Corpuscular Volume 84 fL (79-100) Mean Corpuscular Hemoglobin 27 pg (25-35) Mean Corpuscular Hemoglobin Concent 32 g/dL (31-37) Red Cell Distribution Width 15.7 % (11.5-14.5) Platelet Count 248 x10^3/uL (140-400) Neutrophils (%) (Auto) 84 % (31-73) Lymphocytes (%) (Auto) 10 % (24-48) Monocytes (%) (Auto) 3 % (0-9) Eosinophils (%) (Auto) 3 % (0-3) Basophils (%) (Auto) 0 % (0-3) Neutrophils # (Auto) 11.0 x10^3uL (1.8-7.7) Lymphocytes # (Auto) 1.3 x10^3/uL (1.0-4.8) Monocytes # (Auto) 0.3 x10^3/uL (0.0-1.1) Eosinophils # (Auto) 0.4 x10^3/uL (0.0-0.7) Basophils # (Auto) 0.0 x10^3/uL (0.0-0.2) Sodium Level 136 mmol/L (136-145) Potassium Level 3.6 mmol/L (3.5-5.1) Chloride Level 101 mmol/L (98-107) Carbon Dioxide Level 25 mmol/L (21-32) Anion Gap 10 (6-14) Blood Urea Nitrogen 6 mg/dL (7-20) Creatinine 0.9 mg/dL (0.6-1.0) Estimated GFR (Cockcroft-Gault) 73.0 Glucose Level 242 mg/dL (70-99) Calcium Level 8.0 mg/dL (8.5-10.1) Iron Level 13 ug/dL (50-170) Total Iron Binding Capacity 263 ug/dL (250-450) Iron Saturation 5 % (15-34) Ferritin 175 ng/mL (8-252) Images Images reviewed Assessment/Plan Assessment/Plan chin cellulitis, no abscess on CT--skin does have some necrosis to this area May need ENT services not available at [facility] to further evaluate No general surgery needs will sign off, thank you for the consult ASHLEY LOWRY MD 07/18/17 0904: CONSULT Allergies Allergies: Coded Allergies: No Known Drug Allergies (Unverified , 03/28/17) Assessment/Plan Assessment/Plan Patient seen and examined by me. Complains of lower jaw pain. Erythema and wound on chin with purulent pustules. CT shows only soft tissue swelling no fluid collection. Facial cellulitis agree with Aliya's assessment and plan. May need evaluation by ENT ETHEL MARCH APRN Jul 18, 2017 08:31 ASHLEY LOWRY MD Jul 18, 2017 09:04
[2017-07-18 08:50] LABS: FOLATE 5.45 ng/ml (3.2-20.0)
[2017-07-18] MEDS ORDERED: VANCOMYCIN PER PHARMACY MC SCH (09:00)
[2017-07-18] MEDS: IRON SUCROSE COMPLEX 200 MG in IV NORMAL SALINE 100ML 100 ML IV SCH (09:55)
[2017-07-18] MEDS: traMADol 50 MG TABLET PO PRN (09:58)
[2017-07-18 11:00] VITALS: BP 138/90
[2017-07-18] MEDS ORDERED: INSULIN ASPART 300 UNITS/3 ML INSULN.PEN SQ SCH (11:30)
--- NOTE | 2017-07-18 11:39 | PDOC ---
PROGRESS NOTES Chief Complaint Chief Complaint chin Cellulitis uncontrolled dm1 sepsis with tachycardia, Leukocytosis lactate acidosis normacytic anemia, iron deficiency plan: id consult, sx consult, no sx recommended but recommend to for ENT add anabell madison for now, fu bcx neck CT w contrast Ruled out abcess ivf with bolus increae levemir 20u qhs,, aspart 5u tid, ssi, check hb1c pain control dvt ppx anemia labs repeat all labs tmr venofer x5ds will get SW for contacting [facility] History of Present Illness History of Present Illness T 101 feels ok, language barrier , not complain much high wbc, slightly better still chin cellulitis with induration and an opening low iron high glucose Vitals Vitals Vital Signs Date Time Temp Pulse Resp B/P (MAP) Pulse Ox O2 Delivery O2 Flow Rate FiO2 07/18/17 09:58 100 Room Air 07/18/17 07:00 97.9 119 18 106/71 (83) 97.9 Physical Exam General: Alert, Oriented X3, Cooperative, No acute distress Heart: Regular rate, Normal S1, Normal S2 Lungs: Clear Abdomen: Soft, No tenderness Extremities: No clubbing, No cyanosis Skin: Other (chin opened cellulitis) Labs LABS Laboratory Tests Test 07/17/17 12:53 07/17/17 13:30 07/17/17 13:52 07/17/17 14:20 Bedside Urine HCG, Qualitative Hcg negative (Negative) Glucose (Fingerstick) 244 mg/dL (70-99) White Blood Count 17.6 x10^3/uL (4.0-11.0) Red Blood Count 3.51 x10^6/uL (3.50-5.40) Hemoglobin 9.5 g/dL (12.0-15.5) Hematocrit 29.9 % (36.0-47.0) Mean Corpuscular Volume 85 fL (79-100) Mean Corpuscular Hemoglobin 27 pg (25-35) Mean Corpuscular Hemoglobin Concent 32 g/dL (31-37) Red Cell Distribution Width 15.2 % (11.5-14.5) Platelet Count 302 x10^3/uL (140-400) Neutrophils (%) (Auto) 83 % (31-73) Lymphocytes (%) (Auto) 12 % (24-48) Monocytes (%) (Auto) 4 % (0-9) Eosinophils (%) (Auto) 1 % (0-3) Basophils (%) (Auto) 1 % (0-3) Neutrophils # (Auto) 14.6 x10^3uL (1.8-7.7) Lymphocytes # (Auto) 2.0 x10^3/uL (1.0-4.8) Monocytes # (Auto) 0.8 x10^3/uL (0.0-1.1) Eosinophils # (Auto) 0.1 x10^3/uL (0.0-0.7) Basophils # (Auto) 0.1 x10^3/uL (0.0-0.2) Segmented Neutrophils % 90 % (35-66) Lymphocytes % 6 % (24-48) Monocytes % 4 % (0-10) Platelet Estimate Increased (ADEQUATE) Platelet Clumps, EDTA Present Large Platelets Occ Polychromasia Slight Target Cells Occ Ovalocytes Occ Stomatocytes Occ Erythrocyte Sedimentation Rate 134 (0-25) Sodium Level 132 mmol/L (136-145) Potassium Level 3.6 mmol/L (3.5-5.1) Chloride Level 95 mmol/L (98-107) Carbon Dioxide Level 27 mmol/L (21-32) Anion Gap 10 (6-14) Blood Urea Nitrogen 8 mg/dL (7-20) Creatinine 0.8 mg/dL (0.6-1.0) Estimated GFR (Cockcroft-Gault) 83.7 Glucose Level 240 mg/dL (70-99) Lactic Acid Level 2.3 mmol/L (0.4-2.0) Calcium Level 9.2 mg/dL (8.5-10.1) C-Reactive Protein, Quantitative 103.8 mg/L (0-3.3) Procalcitonin 0.26 ng/mL (0.00-0.10) Urine Color Yellow Urine Clarity Clear Urine pH 6.5 Urine Specific [place] 1.015 Urine Protein 30 mg/dL (NEG-TRACE) Urine Glucose (UA) >=1000 mg/dL (NEG) Urine Ketones (Stick) Negative mg/dL (NEG) Urine Blood Negative (NEG) Urine Nitrite Negative (NEG) Urine Bilirubin Negative (NEG) Urine Urobilinogen Dipstick 1.0 mg/dL (0.2 mg/dL) Urine Leukocyte Esterase Negative (NEG) Urine RBC 0 /HPF (0-2) Urine WBC Occ /HPF (0-4) Urine Squamous Epithelial Cells Occ /LPF Urine Bacteria Few /HPF (0-FEW) Test 07/17/17 18:25 07/17/17 19:47 07/18/17 04:00 07/18/17 07:21 Lactic Acid Level 1.3 mmol/L (0.4-2.0) Glucose (Fingerstick) 134 mg/dL (70-99) 226 mg/dL (70-99) White Blood Count 13.1 x10^3/uL (4.0-11.0) Red Blood Count 3.03 x10^6/uL (3.50-5.40) Hemoglobin 8.3 g/dL (12.0-15.5) Hematocrit 25.5 % (36.0-47.0) Mean Corpuscular Volume 84 fL (79-100) Mean Corpuscular Hemoglobin 27 pg (25-35) Mean Corpuscular Hemoglobin Concent 32 g/dL (31-37) Red Cell Distribution Width 15.7 % (11.5-14.5) Platelet Count 248 x10^3/uL (140-400) Neutrophils (%) (Auto) 84 % (31-73) Lymphocytes (%) (Auto) 10 % (24-48) Monocytes (%) (Auto) 3 % (0-9) Eosinophils (%) (Auto) 3 % (0-3) Basophils (%) (Auto) 0 % (0-3) Neutrophils # (Auto) 11.0 x10^3uL (1.8-7.7) Lymphocytes # (Auto) 1.3 x10^3/uL (1.0-4.8) Monocytes # (Auto) 0.3 x10^3/uL (0.0-1.1) Eosinophils # (Auto) 0.4 x10^3/uL (0.0-0.7) Basophils # (Auto) 0.0 x10^3/uL (0.0-0.2) Sodium Level 136 mmol/L (136-145) Potassium Level 3.6 mmol/L (3.5-5.1) Chloride Level 101 mmol/L (98-107) Carbon Dioxide Level 25 mmol/L (21-32) Anion Gap 10 (6-14) Blood Urea Nitrogen 6 mg/dL (7-20) Creatinine 0.9 mg/dL (0.6-1.0) Estimated GFR (Cockcroft-Gault) 73.0 Glucose Level 242 mg/dL (70-99) Calcium Level 8.0 mg/dL (8.5-10.1) Iron Level 13 ug/dL (50-170) Total Iron Binding Capacity 263 ug/dL (250-450) Iron Saturation 5 % (15-34) Ferritin 175 ng/mL (8-252) Vitamin B12 Level 466 pg/mL (247-911) Serum Folate 5.45 ng/ml (3.2-20.0) Test 07/18/17 10:42 Glucose (Fingerstick) 92 mg/dL (70-99) Review of Systems Review of Systems no chills, sob or chest pain Assessment and Plan Assessmemt and Plan Problems Medical Problems: (1) Abscess or cellulitis of chin Status: Acute (2) Fever Status: Acute (3) Sepsis Status: Acute (4) Tachycardia Status: Acute Problems: Comment Review of Relevant I have reviewed the following items marylu (where applicable) has been applied. Labs Laboratory Tests Test 07/17/17 12:53 07/17/17 13:30 07/17/17 13:52 07/17/17 14:20 Bedside Urine HCG, Qualitative Hcg negative (Negative) Glucose (Fingerstick) 244 mg/dL (70-99) White Blood Count 17.6 x10^3/uL (4.0-11.0) Red Blood Count 3.51 x10^6/uL (3.50-5.40) Hemoglobin 9.5 g/dL (12.0-15.5) Hematocrit 29.9 % (36.0-47.0) Mean Corpuscular Volume 85 fL (79-100) Mean Corpuscular Hemoglobin 27 pg (25-35) Mean Corpuscular Hemoglobin Concent 32 g/dL (31-37) Red Cell Distribution Width 15.2 % (11.5-14.5) Platelet Count 302 x10^3/uL (140-400) Neutrophils (%) (Auto) 83 % (31-73) Lymphocytes (%) (Auto) 12 % (24-48) Monocytes (%) (Auto) 4 % (0-9) Eosinophils (%) (Auto) 1 % (0-3) Basophils (%) (Auto) 1 % (0-3) Neutrophils # (Auto) 14.6 x10^3uL (1.8-7.7) Lymphocytes # (Auto) 2.0 x10^3/uL (1.0-4.8) Monocytes # (Auto) 0.8 x10^3/uL (0.0-1.1) Eosinophils # (Auto) 0.1 x10^3/uL (0.0-0.7) Basophils # (Auto) 0.1 x10^3/uL (0.0-0.2) Segmented Neutrophils % 90 % (35-66) Lymphocytes % 6 % (24-48) Monocytes % 4 % (0-10) Platelet Estimate Increased (ADEQUATE) Platelet Clumps, EDTA Present Large Platelets Occ Polychromasia Slight Target Cells Occ Ovalocytes Occ Stomatocytes Occ Erythrocyte Sedimentation Rate 134 (0-25) Sodium Level 132 mmol/L (136-145) Potassium Level 3.6 mmol/L (3.5-5.1) Chloride Level 95 mmol/L (98-107) Carbon Dioxide Level 27 mmol/L (21-32) Anion Gap 10 (6-14) Blood Urea Nitrogen 8 mg/dL (7-20) Creatinine 0.8 mg/dL (0.6-1.0) Estimated GFR (Cockcroft-Gault) 83.7 Glucose Level 240 mg/dL (70-99) Lactic Acid Level 2.3 mmol/L (0.4-2.0) Calcium Level 9.2 mg/dL (8.5-10.1) C-Reactive Protein, Quantitative 103.8 mg/L (0-3.3) Procalcitonin 0.26 ng/mL (0.00-0.10) Urine Color Yellow Urine Clarity Clear Urine pH 6.5 Urine Specific [place] 1.015 Urine Protein 30 mg/dL (NEG-TRACE) Urine Glucose (UA) >=1000 mg/dL (NEG) Urine Ketones (Stick) Negative mg/dL (NEG) Urine Blood Negative (NEG) Urine Nitrite Negative (NEG) Urine Bilirubin Negative (NEG) Urine Urobilinogen Dipstick 1.0 mg/dL (0.2 mg/dL) Urine Leukocyte Esterase Negative (NEG) Urine RBC 0 /HPF (0-2) Urine WBC Occ /HPF (0-4) Urine Squamous Epithelial Cells Occ /LPF Urine Bacteria Few /HPF (0-FEW) Test 07/17/17 18:25 07/17/17 19:47 07/18/17 04:00 07/18/17 07:21 Lactic Acid Level 1.3 mmol/L (0.4-2.0) Glucose (Fingerstick) 134 mg/dL (70-99) 226 mg/dL (70-99) White Blood Count 13.1 x10^3/uL (4.0-11.0) Red Blood Count 3.03 x10^6/uL (3.50-5.40) Hemoglobin 8.3 g/dL (12.0-15.5) Hematocrit 25.5 % (36.0-47.0) Mean Corpuscular Volume 84 fL (79-100) Mean Corpuscular Hemoglobin 27 pg (25-35) Mean Corpuscular Hemoglobin Concent 32 g/dL (31-37) Red Cell Distribution Width 15.7 % (11.5-14.5) Platelet Count 248 x10^3/uL (140-400) Neutrophils (%) (Auto) 84 % (31-73) Lymphocytes (%) (Auto) 10 % (24-48) Monocytes (%) (Auto) 3 % (0-9) Eosinophils (%) (Auto) 3 % (0-3) Basophils (%) (Auto) 0 % (0-3) Neutrophils # (Auto) 11.0 x10^3uL (1.8-7.7) Lymphocytes # (Auto) 1.3 x10^3/uL (1.0-4.8) Monocytes # (Auto) 0.3 x10^3/uL (0.0-1.1) Eosinophils # (Auto) 0.4 x10^3/uL (0.0-0.7) Basophils # (Auto) 0.0 x10^3/uL (0.0-0.2) Sodium Level 136 mmol/L (136-145) Potassium Level 3.6 mmol/L (3.5-5.1) Chloride Level 101 mmol/L (98-107) Carbon Dioxide Level 25 mmol/L (21-32) Anion Gap 10 (6-14) Blood Urea Nitrogen 6 mg/dL (7-20) Creatinine 0.9 mg/dL (0.6-1.0) Estimated GFR (Cockcroft-Gault) 73.0 Glucose Level 242 mg/dL (70-99) Calcium Level 8.0 mg/dL (8.5-10.1) Iron Level 13 ug/dL (50-170) Total Iron Binding Capacity 263 ug/dL (250-450) Iron Saturation 5 % (15-34) Ferritin 175 ng/mL (8-252) Vitamin B12 Level 466 pg/mL (247-911) Serum Folate 5.45 ng/ml (3.2-20.0) Test 07/18/17 10:42 Glucose (Fingerstick) 92 mg/dL (70-99) Laboratory Tests Test 07/17/17 12:53 07/17/17 13:30 07/17/17 13:52 07/17/17 14:20 Bedside Urine HCG, Qualitative Hcg negative (Negative) Glucose (Fingerstick) 244 mg/dL (70-99) White Blood Count 17.6 x10^3/uL (4.0-11.0) Red Blood Count 3.51 x10^6/uL (3.50-5.40) Hemoglobin 9.5 g/dL (12.0-15.5) Hematocrit 29.9 % (36.0-47.0) Mean Corpuscular Volume 85 fL (79-100) Mean Corpuscular Hemoglobin 27 pg (25-35) Mean Corpuscular Hemoglobin Concent 32 g/dL (31-37) Red Cell Distribution Width 15.2 % (11.5-14.5) Platelet Count 302 x10^3/uL (140-400) Neutrophils (%) (Auto) 83 % (31-73) Lymphocytes (%) (Auto) 12 % (24-48) Monocytes (%) (Auto) 4 % (0-9) Eosinophils (%) (Auto) 1 % (0-3) Basophils (%) (Auto) 1 % (0-3) Neutrophils # (Auto) 14.6 x10^3uL (1.8-7.7) Lymphocytes # (Auto) 2.0 x10^3/uL (1.0-4.8) Monocytes # (Auto) 0.8 x10^3/uL (0.0-1.1) Eosinophils # (Auto) 0.1 x10^3/uL (0.0-0.7) Basophils # (Auto) 0.1 x10^3/uL (0.0-0.2) Segmented Neutrophils % 90 % (35-66) Lymphocytes % 6 % (24-48) Monocytes % 4 % (0-10) Platelet Estimate Increased (ADEQUATE) Platelet Clumps, EDTA Present Large Platelets Occ Polychromasia Slight Target Cells Occ Ovalocytes Occ Stomatocytes Occ Erythrocyte Sedimentation Rate 134 (0-25) Sodium Level 132 mmol/L (136-145) Potassium Level 3.6 mmol/L (3.5-5.1) Chloride Level 95 mmol/L (98-107) Carbon Dioxide Level 27 mmol/L (21-32) Anion Gap 10 (6-14) Blood Urea Nitrogen 8 mg/dL (7-20) Creatinine 0.8 mg/dL (0.6-1.0) Estimated GFR (Cockcroft-Gault) 83.7 Glucose Level 240 mg/dL (70-99) Lactic Acid Level 2.3 mmol/L (0.4-2.0) Calcium Level 9.2 mg/dL (8.5-10.1) C-Reactive Protein, Quantitative 103.8 mg/L (0-3.3) Procalcitonin 0.26 ng/mL (0.00-0.10) Urine Color Yellow Urine Clarity Clear Urine pH 6.5 Urine Specific [place] 1.015 Urine Protein 30 mg/dL (NEG-TRACE) Urine Glucose (UA) >=1000 mg/dL (NEG) Urine Ketones (Stick) Negative mg/dL (NEG) Urine Blood Negative (NEG) Urine Nitrite Negative (NEG) Urine Bilirubin Negative (NEG) Urine Urobilinogen Dipstick 1.0 mg/dL (0.2 mg/dL) Urine Leukocyte Esterase Negative (NEG) Urine RBC 0 /HPF (0-2) Urine WBC Occ /HPF (0-4) Urine Squamous Epithelial Cells Occ /LPF Urine Bacteria Few /HPF (0-FEW) Test 07/17/17 18:25 07/17/17 19:47 07/18/17 04:00 07/18/17 07:21 Lactic Acid Level 1.3 mmol/L (0.4-2.0) Glucose (Fingerstick) 134 mg/dL (70-99) 226 mg/dL (70-99) White Blood Count 13.1 x10^3/uL (4.0-11.0) Red Blood Count 3.03 x10^6/uL (3.50-5.40) Hemoglobin 8.3 g/dL (12.0-15.5) Hematocrit 25.5 % (36.0-47.0) Mean Corpuscular Volume 84 fL (79-100) Mean Corpuscular Hemoglobin 27 pg (25-35) Mean Corpuscular Hemoglobin Concent 32 g/dL (31-37) Red Cell Distribution Width 15.7 % (11.5-14.5) Platelet Count 248 x10^3/uL (140-400) Neutrophils (%) (Auto) 84 % (31-73) Lymphocytes (%) (Auto) 10 % (24-48) Monocytes (%) (Auto) 3 % (0-9) Eosinophils (%) (Auto) 3 % (0-3) Basophils (%) (Auto) 0 % (0-3) Neutrophils # (Auto) 11.0 x10^3uL (1.8-7.7) Lymphocytes # (Auto) 1.3 x10^3/uL (1.0-4.8) Monocytes # (Auto) 0.3 x10^3/uL (0.0-1.1) Eosinophils # (Auto) 0.4 x10^3/uL (0.0-0.7) Basophils # (Auto) 0.0 x10^3/uL (0.0-0.2) Sodium Level 136 mmol/L (136-145) Potassium Level 3.6 mmol/L (3.5-5.1) Chloride Level 101 mmol/L (98-107) Carbon Dioxide Level 25 mmol/L (21-32) Anion Gap 10 (6-14) Blood Urea Nitrogen 6 mg/dL (7-20) Creatinine 0.9 mg/dL (0.6-1.0) Estimated GFR (Cockcroft-Gault) 73.0 Glucose Level 242 mg/dL (70-99) Calcium Level 8.0 mg/dL (8.5-10.1) Iron Level 13 ug/dL (50-170) Total Iron Binding Capacity 263 ug/dL (250-450) Iron Saturation 5 % (15-34) Ferritin 175 ng/mL (8-252) Vitamin B12 Level 466 pg/mL (247-911) Serum Folate 5.45 ng/ml (3.2-20.0) Test 07/18/17 10:42 Glucose (Fingerstick) 92 mg/dL (70-99) Medications Current Medications Sodium Chloride 960 ml @ 960 mls/hr Q1H IV Last administered on 07/17/17 14: 00; Start 07/17/17 at 13:31; Stop 07/18/17 at 00:43; Status DC Sodium Chloride 500 ml @ 1,000 mls/hr PRN Q30MIN PRN IV SEE COMMENTS; Start at 13:45 Acetaminophen (Tylenol) 1,000 mg 1X ONCE PO Last administered on 07/17/17 14: 02; Start 07/17/17 at 14:00; Stop 07/17/17 at 14:01; Status DC Diphtheria/ Tetanus/Acell Pertussis (Boostrix) 0.5 ml ONCE ONCE VAX IM Last administered on 07/17/17 14:03; Start 07/17/17 at 14:00; Stop 07/17/17 at 14:01 ; Status DC Vancomycin HCl (Vanco Per Pharmacy) 1 each DAILY MC ; Start 07/18/17 at 09:00; Status UNV Vancomycin HCl 750 mg/Sodium Chloride 250 ml @ 250 mls/hr 1X ONCE IV Last administered on 07/17/17 15:33; Start 07/17/17 at 15:30; Stop 07/17/17 at 16:29 ; Status DC Sodium Chloride 1,000 ml @ 1,000 mls/hr 1X ONCE IV Last administered on 16:15; Start 07/17/17 at 16:15; Stop 07/17/17 at 17:14; Status DC Sodium Chloride 1,000 ml @ 100 mls/hr Q10H IV ; Start 07/17/17 at 16:15 Acetaminophen (Tylenol) 650 mg PRN Q6HRS PRN PO FEVER Last administered on 07/18 05:22; Start 07/17/17 at 16:15 Ondansetron HCl (Zofran) 4 mg PRN Q6HRS PRN IV NAUSEA/VOMITING; Start 07/17/17 at 16:15 Morphine Sulfate 2 mg PRN Q2HR PRN IV PAIN; Start 07/17/17 at 16:15 Tramadol HCl (Ultram) 50 mg PRN Q6HRS PRN PO PAIN Last administered on 09:58; Start 07/17/17 at 16:15 Hydralazine HCl (Apresoline) 10 mg PRN Q4HRS PRN IVP ELEVATED BP, SEE COMMENTS ; Start 07/17/17 at 16:15 Docusate Sodium (Colace) 100 mg PRN DAILY PRN PO CONSTIPATION; Start 07/17/17 at 16:15 Vancomycin HCl (Vanco Per Pharmacy) 1 each PRN DAILY PRN MC SEE COMMENTS Last administered on 07/17/17 18:09; Start 07/17/17 at 16:15 Vancomycin HCl 1.75 gm/Sodium Chloride 500 ml @ 250 mls/hr BID IV ; Start 07/17 at 21:00; Status UNV Piperacillin Sod/ Tazobactam Sod 4.5 gm/Sodium Chloride 100 ml @ 200 mls/hr 1X ONCE IV Last administered on 07/17/17 17:48; Start 07/17/17 at 16:30; Stop 07/17/17 at 16:59; Status DC Piperacillin Sod/ Tazobactam Sod (Zosyn Per Pharmacy) 1 each PRN DAILY PRN MC SEE COMMENTS; Start 07/17/17 at 16:15 Enoxaparin Sodium (Lovenox 30mg Syringe) 30 mg Q24H SQ Last administered on 21:01; Start 07/17/17 at 21:00 Acetaminophen/ Hydrocodone Bitart (Lortab 5/325) 1 tab 1X ONCE PO Last administered on 07/17/17 17:56; Start 07/17/17 at 16:15; Stop 07/17/17 at 16:21 ; Status DC Insulin Aspart (NovoLOG) 0-9 UNITS TIDWMEALS SQ Last administered on 07/18/17 08:05; Start 07/17/17 at 17:00 Dextrose (Dextrose 50%-Water Syringe) 12.5 gm PRN Q15MIN PRN IV SEE COMMENTS; Start 07/17/17 at 16:15 Insulin Detemir (Levemir) 15 units QHS SQ Last administered on 07/17/17 21:08 ; Start 07/17/17 at 21:00; Stop 07/18/17 at 09:16; Status DC Insulin Aspart (NovoLOG) 5 units TIDAC SQ Last administered on 07/18/17 08:04 ; Start 07/17/17 at 16:30; Stop 07/18/17 at 09:16; Status DC Iohexol (Omnipaque 300 Mg/ml) 70 ml 1X ONCE IV Last administered on 07/17/17 16:33; Start 07/17/17 at 16:30; Stop 07/17/17 at 16:31; Status DC Ondansetron HCl (Zofran) 4 mg PRN Q8HRS PRN IV NAUSEA/VOMITING; Start 07/17/17 at 16:15; Stop 07/18/17 at 16:14 Morphine Sulfate 4 mg PRN Q2HR PRN IV PAIN; Start 07/17/17 at 16:15; Stop 07/18 at 16:14 Acetaminophen (Tylenol) 650 mg PRN Q4HRS PRN PO FEVER; Start 07/17/17 at 16:15 ; Stop 07/18/17 at 16:14 Sodium Chloride 1,000 ml @ 125 mls/hr 1X ONCE IV Last administered on 21:00; Start 07/17/17 at 16:15; Stop 07/18/17 at 00:14; Status DC Ibuprofen (Motrin) 600 mg PRN Q8HRS PRN PO FEVER; Start 07/17/17 at 16:15 Info (Do NOT chart on this entry -- for MONITORING) 1 each PRN DAILY PRN MC SEE COMMENTS; Start 07/17/17 at 16:30; Stop 07/19/17 at 16:29 Piperacillin Sod/ Tazobactam Sod 3.375 gm/Sodium Chloride 50 ml @ 100 mls/hr Q6HRS IV Last administered on 07/18/17 05:21; Start 07/18/17 at 00:00 Vancomycin HCl 500 mg/Sodium Chloride 100 ml @ 100 mls/hr Q24H IV ; Start 07/18 at 15:30 Insulin Aspart (NovoLOG) 8 units TIDAC SQ ; Start 07/18/17 at 11:30 Insulin Detemir (Levemir) 25 units QHS SQ ; Start 07/18/17 at 21:00 Iron Sucrose 200 mg/Sodium Chloride 110 ml @ 55 mls/hr DAILY IV Last administered on 07/18/17t 09:55; Start 07/18/17 at 10:00; Stop 07/22/17 at 11:00 Active Scripts Active Reported Novolog (Insulin Aspart) 100 Unit/1 Ml Vial 32 Unit SQ [id number] Vitals/I & O Vital Sign - Last 24 Hours 07/17/17 07/17/17 07/17/17 07/17/17 13:23 14:05 15:15 17:56 Temp 99.7 99.7 Pulse 137 133 127 Resp 20 20 20 20 B/P (MAP) 143/79 (100) 148/71 (96) 110/68 (82) Pulse Ox 100 96 100 100 O2 Delivery Room Air Room Air 07/17/17 07/17/17 07/17/17 07/17/17 17:58 18:20 18:20 19:05 Temp 98.4 98.4 99.4 98.4 98.4 99.4 Pulse 115 116 116 122 Resp 20 16 16 18 B/P (MAP) 108/63 (78) 120/71 (87) 120/71 (87) 105/64 (78) Pulse Ox 100 100 100 99 O2 Delivery Room Air Room Air Room Air Room Air 07/17/17 07/17/17 07/18/17 07/18/17 20:00 23:05 03:05 07:00 Temp 99.5 101.6 97.9 99.5 101.6 97.9 Pulse 128 130 119 Resp 18 18 18 B/P (MAP) 141/86 (104) 130/77 (94) 106/71 (83) Pulse Ox 98 97 100 O2 Delivery Room Air Room Air Room Air Room Air 07/18/17 07/18/17 08:00 09:58 Pulse Ox 100 O2 Delivery Room Air Room Air Intake and Output 07/17/17 07/17/17 07/18/17 15:00 23:00 07:00 Intake Total 250 ml 450 ml Output Total 1650 ml Balance 250 ml -1200 ml DHIRAJ MATT MD Jul 18, 2017 11:39
--- NOTE | 2017-07-18 12:17 | PDOC ---
Infectious Disease Note ROS ROS GEN: Denies fevers, chills, sweats HEENT: Denies blurred vision, sore throat CV: Denies chest pain RESP: Denies shortness of air, cough GI: Denies n/v/d NEURO: Denies confusion, dizziness MSK: Denies weakness, joint pain/swelling Vital Sign Vital Signs Vital Signs Date Time Temp Pulse Resp B/P (MAP) Pulse Ox O2 Delivery O2 Flow Rate FiO2 07/18/17 11:00 97.5 106 18 138/90 (106) 99 Room Air 97.5 Physical Exam PHYSICAL EXAM GENERAL: NAD, Alert HEENT: PERRL, OC/OP NECK: Supple, no JVD, no LN LUNGS: Clear HEART: S1S2, no gallop, no murmur ABD: Soft, NT, no organomegaly, no rebound EXT: No edema, no cyanosis LOG WASHER: Alert, oriented x 3, no focal neurologic deficit SKIN: No rash IV: ok Labs Lab Laboratory Tests Test 07/17/17 12:53 07/17/17 13:30 07/17/17 13:52 07/17/17 14:20 Bedside Urine HCG, Qualitative Hcg negative (Negative) Glucose (Fingerstick) 244 mg/dL (70-99) White Blood Count 17.6 x10^3/uL (4.0-11.0) Red Blood Count 3.51 x10^6/uL (3.50-5.40) Hemoglobin 9.5 g/dL (12.0-15.5) Hematocrit 29.9 % (36.0-47.0) Mean Corpuscular Volume 85 fL (79-100) Mean Corpuscular Hemoglobin 27 pg (25-35) Mean Corpuscular Hemoglobin Concent 32 g/dL (31-37) Red Cell Distribution Width 15.2 % (11.5-14.5) Platelet Count 302 x10^3/uL (140-400) Neutrophils (%) (Auto) 83 % (31-73) Lymphocytes (%) (Auto) 12 % (24-48) Monocytes (%) (Auto) 4 % (0-9) Eosinophils (%) (Auto) 1 % (0-3) Basophils (%) (Auto) 1 % (0-3) Neutrophils # (Auto) 14.6 x10^3uL (1.8-7.7) Lymphocytes # (Auto) 2.0 x10^3/uL (1.0-4.8) Monocytes # (Auto) 0.8 x10^3/uL (0.0-1.1) Eosinophils # (Auto) 0.1 x10^3/uL (0.0-0.7) Basophils # (Auto) 0.1 x10^3/uL (0.0-0.2) Segmented Neutrophils % 90 % (35-66) Lymphocytes % 6 % (24-48) Monocytes % 4 % (0-10) Platelet Estimate Increased (ADEQUATE) Platelet Clumps, EDTA Present Large Platelets Occ Polychromasia Slight Target Cells Occ Ovalocytes Occ Stomatocytes Occ Erythrocyte Sedimentation Rate 134 (0-25) Sodium Level 132 mmol/L (136-145) Potassium Level 3.6 mmol/L (3.5-5.1) Chloride Level 95 mmol/L (98-107) Carbon Dioxide Level 27 mmol/L (21-32) Anion Gap 10 (6-14) Blood Urea Nitrogen 8 mg/dL (7-20) Creatinine 0.8 mg/dL (0.6-1.0) Estimated GFR (Cockcroft-Gault) 83.7 Glucose Level 240 mg/dL (70-99) Lactic Acid Level 2.3 mmol/L (0.4-2.0) Calcium Level 9.2 mg/dL (8.5-10.1) C-Reactive Protein, Quantitative 103.8 mg/L (0-3.3) Procalcitonin 0.26 ng/mL (0.00-0.10) Urine Color Yellow Urine Clarity Clear Urine pH 6.5 Urine Specific [place] 1.015 Urine Protein 30 mg/dL (NEG-TRACE) Urine Glucose (UA) >=1000 mg/dL (NEG) Urine Ketones (Stick) Negative mg/dL (NEG) Urine Blood Negative (NEG) Urine Nitrite Negative (NEG) Urine Bilirubin Negative (NEG) Urine Urobilinogen Dipstick 1.0 mg/dL (0.2 mg/dL) Urine Leukocyte Esterase Negative (NEG) Urine RBC 0 /HPF (0-2) Urine WBC Occ /HPF (0-4) Urine Squamous Epithelial Cells Occ /LPF Urine Bacteria Few /HPF (0-FEW) Test 07/17/17 18:25 07/17/17 19:47 8/18/17 04:00 07/18/17 07:21 Lactic Acid Level 1.3 mmol/L (0.4-2.0) Glucose (Fingerstick) 134 mg/dL (70-99) 226 mg/dL (70-99) White Blood Count 13.1 x10^3/uL (4.0-11.0) Red Blood Count 3.03 x10^6/uL (3.50-5.40) Hemoglobin 8.3 g/dL (12.0-15.5) Hematocrit 25.5 % (36.0-47.0) Mean Corpuscular Volume 84 fL (79-100) Mean Corpuscular Hemoglobin 27 pg (25-35) Mean Corpuscular Hemoglobin Concent 32 g/dL (31-37) Red Cell Distribution Width 15.7 % (11.5-14.5) Platelet Count 248 x10^3/uL (140-400) Neutrophils (%) (Auto) 84 % (31-73) Lymphocytes (%) (Auto) 10 % (24-48) Monocytes (%) (Auto) 3 % (0-9) Eosinophils (%) (Auto) 3 % (0-3) Basophils (%) (Auto) 0 % (0-3) Neutrophils # (Auto) 11.0 x10^3uL (1.8-7.7) Lymphocytes # (Auto) 1.3 x10^3/uL (1.0-4.8) Monocytes # (Auto) 0.3 x10^3/uL (0.0-1.1) Eosinophils # (Auto) 0.4 x10^3/uL (0.0-0.7) Basophils # (Auto) 0.0 x10^3/uL (0.0-0.2) Sodium Level 136 mmol/L (136-145) Potassium Level 3.6 mmol/L (3.5-5.1) Chloride Level 101 mmol/L (98-107) Carbon Dioxide Level 25 mmol/L (21-32) Anion Gap 10 (6-14) Blood Urea Nitrogen 6 mg/dL (7-20) Creatinine 0.9 mg/dL (0.6-1.0) Estimated GFR (Cockcroft-Gault) 73.0 Glucose Level 242 mg/dL (70-99) Calcium Level 8.0 mg/dL (8.5-10.1) Iron Level 13 ug/dL (50-170) Total Iron Binding Capacity 263 ug/dL (250-450) Iron Saturation 5 % (15-34) Ferritin 175 ng/mL (8-252) Vitamin B12 Level 466 pg/mL (247-911) Serum Folate 5.45 ng/ml (3.2-20.0) Test 07/18/17 10:42 Glucose (Fingerstick) 92 mg/dL (70-99) Objective Assessment fever Leukocytosis Chin cellulitis ? developing abscess DM Plan Plan of Care Agree with Zosyn/Vanc Add po Zyvox for potential MRSA and for ribosomal activity as well as better skin penetration F/u labs and cults May need surgical I and D ? transfer to /[facility] if needed Thank you # [id number] JORGE LUIS GONSALEZ MD Jul 18, 2017 12:17
[2017-07-18 15:00] VITALS: BP 120/74
[2017-07-18] MEDS ORDERED: VANCOMYCIN 500 MG in IV NORMAL SALINE 100ML 100 ML IV SCH (15:30)
[2017-07-18] MEDS: LINEZOLID 600 MG TABLET PO SCH ×2 (15:35→20:10)
[2017-07-18] MEDS: VANCOMYCIN PER PHARMACY MC PRN (17:25)
[2017-07-18] MEDS: ONDANSETRON PF 4 MG/2 ML VIAL. IV PRN ×2 (17:42→23:53)
[2017-07-18 19:05] VITALS: BP 143/91
[2017-07-18] MEDS: ENOXAPARIN 30 MG/0.3 ML SYRINGE. SQ SCH (20:13)
[2017-07-18] MEDS ORDERED: INSULIN DETEMIR 300 UNITS/3 ML INSULN.PEN. SQ SCH ×2 (21:00)
--- NOTE | 2017-07-18 21:20 | CONS ---
DATE OF CONSULTATION: 07/18/2017 REQUESTING PHYSICIAN: Dr. Cristina. REASON FOR CONSULTATION: Chin cellulitis. HISTORY OF PRESENT ILLNESS: The patient is a 32-year-old girl from [facility] who states about a week or so ago developed a small area on her chin and over time this increased in size. She denies any trauma or scratches. This has been open and draining, but it has become more painful. She has been type 1 diabetes for approximately 4 years. She has had no nausea, vomiting. She did have fever as high as 101.6. On arrival, white blood cell count was also elevated at 17.6. CT scan of her soft tissue in neck was performed, showed nonspecific soft tissue swelling along the anterior aspect of the chin compatible with cellulitis or contusion. She has been placed on vancomycin and Zosyn. Currently, she is lying in bed. She denies any headaches. It does hurt somewhat to open her mouth, but she has no swallowing problems, no drooling, or shortness of air or wheezing. She has no nausea, no falls, no rashes. PAST MEDICAL HISTORY: Again is positive for diabetes, she states for approximately 4 years or so; hypertension; she has neuropathy; history of urinary tract infection, it was E. coli, was pansensitive back in March. PAST SURGICAL HISTORY: Only for "her baby" in a . REVIEW OF SYSTEMS: Otherwise negative except for what is mentioned above. ALLERGIES: No known drug allergies. SOCIAL HISTORY: Negative for any smoking. FAMILY HISTORY: Positive for hypertension. CURRENT MEDICATIONS: Include Zosyn, vancomycin, insulin, tramadol. Other meds are available and reviewed in the chart. PHYSICAL EXAMINATION: VITAL SIGNS: T-max has been 101.6, currently 97.5; pulse 106; respirations 18; blood pressure 130/90; satting 99% on room air. CONSTITUTIONAL: She is alert. She is cooperative. She is in no acute distress. HEENT: Pupils are equal and reactive. She has normal conjunctivae. She has a left nose ring. Oral cavity, oropharynx, able to open her mouth ____ signs of any complications. There is no intraoral cavity swelling. Her neck was supple. Her chin has an area of scabbing and erythema, small pustules. Little central area of necrosis. There is a fullness in the mandible area, underneath that there is somewhat tender mild erythema. NECK: Supple, no JVD. LUNGS: Clear to auscultation without wheeze. HEART: S1, S2. ABDOMEN: Soft, nontender, nondistended. Bowel sounds present. EXTREMITIES: Thin and without clubbing or cyanosis or edema. SKIN: Warm to touch without signs of rash. NEUROLOGIC: She is nonfocal, moves all extremities. PSYCHIATRIC: Affect was quiet. LABORATORY DATA: White count 13.1, hemoglobin 8.3, platelets of 248, neutrophils of 84. Glucose 242, creatinine 0.9. C-reactive protein of 103.8. Procalcitonin was 0.26. No current cultures. Radiology reviewed in history of present illness. IMPRESSION: 1. Fever. 2. Leukocytosis. 3. Chin cellulitis, questionable developing abscess. 4. Diabetes. RECOMMENDATIONS: For now, I agree with the Zosyn and vancomycin given that she is a diabetic. We will add oral Zyvox for potential MRSA coverage as his ____ potential toxin production as well as better skin penetration for the vancomycin. We will follow up labs and cultures. May need surgical I and D and questionable transfer to or possibly to [facility] as needed is in the process I believe. JORGE LUIS GONSALEZ MD DR: TAIWO/france JOB#: [id number] / [id number]
[2017-07-18 23:05] VITALS: BP 150/90
[2017-07-19] MEDS ORDERED: ZOLPIDEM 5 MG TABLET. PO PRN (00:15)
[2017-07-19 03:05] VITALS: BP 136/86
[2017-07-19 04:18] LABS: BASO % 0 % (0-3); EOS % 1 % (0-3); HEMATOCRIT 25.3 % (36.0-47.0); LYMPH # 1.1 x10^3/uL (1.0-4.8); LYMPH % 10 % (24-48); MEAN CORPUSCULAR HEMOGLOBIN 27 pg (25-35); MEAN CORPUSCULAR HGB CONC 32 g/dL (31-37); MEAN CORPUSCULAR VOLUME 85 fL (79-100); MONO % 4 % (0-9); NEUT % 85 % (31-73); PLATELET COUNT 250 x10^3/uL (140-400); RED BLOOD COUNT 2.96 x10^6/uL (3.50-5.40); RED CELL DISTRIBUTION WIDTH 15.3 % (11.5-14.5); WHITE BLOOD COUNT 11.2 x10^3/uL (4.0-11.0)
[2017-07-19 05:04] LABS: CALCIUM 8.2 mg/dL (8.5-10.1); CREATININE 0.7 mg/dL (0.6-1.0); GFR 97.6; POTASSIUM 3.5 mmol/L (3.5-5.1)
[2017-07-19] MEDS: PIPERACILLIN/TAZOBACTAM 3.375 GM in IV NORMAL SALINE 50ML 50 ML IV SCH ×2 (05:29→13:15)
[2017-07-19] MEDS: INSULIN ASPART 300 UNITS/3 ML INSULN.PEN SQ SCH ×4 (07:30→12:00)
[2017-07-19 07:58] VITALS: BP 101/64
[2017-07-19] MEDS: ONDANSETRON PF 4 MG/2 ML VIAL. IV PRN (08:36)
[2017-07-19] MEDS: LINEZOLID 600 MG TABLET PO SCH (08:36)
--- NOTE | 2017-07-19 10:21 | PDOC ---
Infectious Disease Note Subjective Subjective Non-East Timorese speaking, family interpreting Pain little better No fever so far today, Tmax 102.2 Vomited earlier Jean difficulty swallowing, SOA or wheezing Vital Sign Vital Signs Vital Signs Date Time Temp Pulse Resp B/P (MAP) Pulse Ox O2 Delivery O2 Flow Rate FiO2 07/19/17 07:58 98.3 94 15 101/64 (76) 98 Room Air 98.3 Physical Exam PHYSICAL EXAM GENERAL: Lying down, tired appearance HEENT: Oral cavity pink and moist, no drooling. The chin is swollen, mildly red w/ scabbing and small amt purulent drainage as well as induration extending beneath the chin. NECK: Supple LUNGS: Clear HEART: S1 and S2 ABD: Soft, NT EXT: No edema, no cyanosis SONOGRAPHY TECHNICIAN: Alert, oriented, no focal neurologic deficit SKIN: No rash IV: ok Labs Lab Laboratory Tests Test 07/18/17 10:42 07/18/17 16:53 07/18/17 21:35 07/19/17 03:10 Glucose (Fingerstick) 92 mg/dL (70-99) 154 mg/dL (70-99) 156 mg/dL (70-99) White Blood Count 11.2 x10^3/uL (4.0-11.0) Red Blood Count 2.96 x10^6/uL (3.50-5.40) Hemoglobin 8.0 g/dL (12.0-15.5) Hematocrit 25.3 % (36.0-47.0) Mean Corpuscular Volume 85 fL (79-100) Mean Corpuscular Hemoglobin 27 pg (25-35) Mean Corpuscular Hemoglobin Concent 32 g/dL (31-37) Red Cell Distribution Width 15.3 % (11.5-14.5) Platelet Count 250 x10^3/uL (140-400) Neutrophils (%) (Auto) 85 % (31-73) Lymphocytes (%) (Auto) 10 % (24-48) Monocytes (%) (Auto) 4 % (0-9) Eosinophils (%) (Auto) 1 % (0-3) Basophils (%) (Auto) 0 % (0-3) Neutrophils # (Auto) 9.5 x10^3uL (1.8-7.7) Lymphocytes # (Auto) 1.1 x10^3/uL (1.0-4.8) Monocytes # (Auto) 0.4 x10^3/uL (0.0-1.1) Eosinophils # (Auto) 0.1 x10^3/uL (0.0-0.7) Basophils # (Auto) 0.0 x10^3/uL (0.0-0.2) Sodium Level 138 mmol/L (136-145) Potassium Level 3.5 mmol/L (3.5-5.1) Chloride Level 102 mmol/L (98-107) Carbon Dioxide Level 27 mmol/L (21-32) Anion Gap 9 (6-14) Blood Urea Nitrogen 5 mg/dL (7-20) Creatinine 0.7 mg/dL (0.6-1.0) Estimated GFR (Cockcroft-Gault) 97.6 Glucose Level 152 mg/dL (70-99) Calcium Level 8.2 mg/dL (8.5-10.1) Test 07/19/17 07:31 Glucose (Fingerstick) 72 mg/dL (70-99) Micro BLOOD CULTURE Preliminary NO GROWTH AFTER 1 DAY Objective Assessment Fever. Leukocytosis, trending down Chin cellulitis, questionable developing abscess. Diabetes. Plan Plan of Care Vanc and Zosyn Zyvox added for potential MRSA and for ribosomal activity as well as better skin penetration F/u labs and cults May need surgical I and D [facility] declined transfer. ? [facility] Attending Co-Sign The patient was seen and interviewed as well as examined at the bedside. The chart was reviewed. The case was discussed. Agree with the plan of care. JONNATHAN MILIAN APRN Jul 19, 2017 10:21 LEN RED MD Jul 19, 2017 10:44
[2017-07-19] MEDS: IRON SUCROSE COMPLEX 200 MG in IV NORMAL SALINE 100ML 100 ML IV SCH (10:44)
[2017-07-19 11:04] VITALS: BP 151/79
[2017-07-19] MEDS ORDERED: ONDANSETRON PF 4 MG/2 ML VIAL. IV PRN (14:15)
[2017-07-19] MEDS ORDERED: PROCHLORPERAZINE 10 MG/2 ML VIAL. IV PRN (14:15)
[2017-07-19] MEDS: IV NORMAL SALINE 1000ML BAG 1,000 ML IV SCH (14:54)
[2017-07-19 15:02] VITALS: BP 138/76
--- NOTE | 2017-07-19 15:18 | PDOC ---
PROGRESS NOTES Chief Complaint Chief Complaint Chin Cellulitis ASSESSMENT AND PLAN: 1. facial cellulitis: Abx as per ID service (anabell madison). no abscess on CT. Surg service rec.s transfer to or [facility] for ENT consult 2. Sepsis: persistent fevers. leukocytosis improving. 3. DM1: better controlled on increased insulin. cont ISS 4. Leukocytosis: improving. 5. Anemia: combined iron deficiency and inflammatory. received venofer. hold further doses in face of ongoing infection 6. N/V: add compazine, ativan to zofran (alternatingly) PRN 7. Dispo: initiate transfer to [facility] History of Present Illness History of Present Illness mod pain at chin, interfering with speaking. denies through physician allergist immunologist any other pain. + nausea/vomiting, poss 2/2 IV morphine Vitals Vitals Vital Signs Date Time Temp Pulse Resp B/P (MAP) Pulse Ox O2 Delivery O2 Flow Rate FiO2 07/19/17 11:04 98.8 100 24 151/79 (103) 98 Room Air 98.8 Physical Exam General: Alert, Oriented X3, Cooperative, No acute distress Heart: Regular rate Lungs: Clear Abdomen: Normal bowel sounds, Soft, No tenderness Extremities: No clubbing, No cyanosis Skin: Other (chin with desquamated cellulitic edema/erythema, some small pus pockets) Labs LABS Laboratory Tests Test 07/18/17 16:53 07/18/17 21:35 07/19/17 03:10 07/19/17 07:31 Glucose (Fingerstick) 154 mg/dL (70-99) 156 mg/dL (70-99) 72 mg/dL (70-99) White Blood Count 11.2 x10^3/uL (4.0-11.0) Red Blood Count 2.96 x10^6/uL (3.50-5.40) Hemoglobin 8.0 g/dL (12.0-15.5) Hematocrit 25.3 % (36.0-47.0) Mean Corpuscular Volume 85 fL (79-100) Mean Corpuscular Hemoglobin 27 pg (25-35) Mean Corpuscular Hemoglobin Concent 32 g/dL (31-37) Red Cell Distribution Width 15.3 % (11.5-14.5) Platelet Count 250 x10^3/uL (140-400) Neutrophils (%) (Auto) 85 % (31-73) Lymphocytes (%) (Auto) 10 % (24-48) Monocytes (%) (Auto) 4 % (0-9) Eosinophils (%) (Auto) 1 % (0-3) Basophils (%) (Auto) 0 % (0-3) Neutrophils # (Auto) 9.5 x10^3uL (1.8-7.7) Lymphocytes # (Auto) 1.1 x10^3/uL (1.0-4.8) Monocytes # (Auto) 0.4 x10^3/uL (0.0-1.1) Eosinophils # (Auto) 0.1 x10^3/uL (0.0-0.7) Basophils # (Auto) 0.0 x10^3/uL (0.0-0.2) Sodium Level 138 mmol/L (136-145) Potassium Level 3.5 mmol/L (3.5-5.1) Chloride Level 102 mmol/L (98-107) Carbon Dioxide Level 27 mmol/L (21-32) Anion Gap 9 (6-14) Blood Urea Nitrogen 5 mg/dL (7-20) Creatinine 0.7 mg/dL (0.6-1.0) Estimated GFR (Cockcroft-Gault) 97.6 Glucose Level 152 mg/dL (70-99) Calcium Level 8.2 mg/dL (8.5-10.1) Test 07/19/17 11:20 Glucose (Fingerstick) 111 mg/dL (70-99) KIKO HUERTA MD Jul 19, 2017 15:18
[2017-07-19] MEDS: VANCOMYCIN PER PHARMACY MC PRN (15:50)
[2017-07-19] MEDS ORDERED: VANCOMYCIN 500 MG in IV NORMAL SALINE 100ML 100 ML IV SCH (16:00)
[2017-07-19] MEDS ORDERED: DEXT50DI3 IV (18:04)
[2017-07-19] MEDS ORDERED: ONDA4VIA4 IV (18:04)
[2017-07-19] MEDS ORDERED: PROC10VI IV (18:04)
[2017-07-19] MEDS ORDERED: ENOX30DI3 SQ (18:04)
[2017-07-19] MEDS ORDERED: INSU100I27 SQ (18:04)
[2017-07-19] MEDS ORDERED: PIPE2.255 MC (18:04)
[2017-07-19] MEDS ORDERED: HYDR20VI5 IVP (18:04)
[2017-07-19] MEDS ORDERED: TRAM50TA PO (18:04)
[2017-07-19] MEDS ORDERED: ACET325T9 PO (18:04)
[2017-07-19] MEDS ORDERED: VANC1VIA3 MC (18:04)
[2017-07-19] MEDS ORDERED: DOCU-109 PO (18:04)
--- NOTE | 2017-07-21 04:20 | DS ---
DATE OF DISCHARGE: 07/19/2017 ADMISSION DATE: 07/17/2017 DISCHARGE DATE: 07/19/2017 CHIEF COMPLAINT: Cellulitis on her chin. HOSPITAL COURSE: The patient is a 32-year-old Serbian with history of diabetes type 1 who presented to the Emergency Room with a chin infection of 6-7 days duration. She was seen by surgical as well as ID services and recommendations were for transfer to a facility with ENT capabilities as a service was not available in this hospital. Fear was for extension into a sublingular soft tissue spaces. She was treated with broad-spectrum antibiotics in the meantime with persistent fevers. Transfer was finally accomplished on 07/19/2017 to [facility]. PHYSICAL EXAMINATION: VITAL SIGNS: Showed a blood pressure of 151/79, pulse of 100, a temperature at 98.8 with a T-max of 102.3. GENERAL: This is a slim ill-appearing 32-year-old Serbian, alert and oriented in no acute distress. LUNGS: Clear. HEART: Regular rate and rhythm. ABDOMEN: Has positive bowel sounds. EXTREMITIES: Show no edema. DISCHARGE DISPOSITION: Transferred to [facility]. DISCHARGE DIAGNOSES: Cellulitis on chin. DISCHARGE MEDICATIONS: Please refer to JAN. KIKO HUERTA MD DR: JOS/nts JOB#: [id number] / [id number]
== END 2017-07-19 17:56 | disposition short-term general hospital (02) | DRG 872 ==
LOC: ER 13:11 → 6 SOUTH 15:34
PROVIDERS: ADMIT Internal Medicine; ATTEND Internal Medicine
DX: A41.9 Sepsis, unspecified organism (principal); E10.40 Type 1 diabetes mellitus with diabetic neuropathy, unspecified; L03.211 Cellulitis of face; E10.42 Type 1 diabetes mellitus with diabetic polyneuropathy; E10.65 Type 1 diabetes mellitus with hyperglycemia; I10 Essential (primary) hypertension; D50.9 Iron deficiency anemia, unspecified; D64.89 Other specified anemias; Z79.4 Long term (current) use of insulin; Z82.49 Family history of ischemic heart disease and other diseases of the circulatory system; Z87.440 Personal history of urinary (tract) infections
CPT/HCPCS: 36415; 70491; 80048; 80202; 81001; 81025; 82607; 82728; 82746; 82962; 83036; 83540; 83550; 83605; 84145; 85007; 85025; 85651; 86140; 87040; 90715; 93005; J0780; J1650; J1756; J1815; J2270; J2405; J2543; J3370; J7030; J7050; Q9967; 99285-25

== ENCOUNTER 2019-03-09 09:28 | Emergency (ER) | payer OTHER ==
[~2019-03-09] VITALS: Ht 129.5 cm; Wt 39.9 kg
[~2019-03-09 09:28] MED LIST changes: +ACET325T9 PO; +DEXT50DI3 IV; +DOCU-109 PO; +ENOX30DI3 SQ; +HYDR20VI5 IVP; +INSU100I27 SQ; +ONDA4VIA7 IV; +PIPE2.255 MC; +PROC10VI IV; +TRAM50TA PO; +VANC1VIA3 MC
[2019-03-09 10:03] VITALS: BP 184/103
--- NOTE | 2019-03-09 10:08 | PHYS DOC ---
Past Medical History Past Medical History: Diabetes-Type I, Hypertension Additional Past Medical Histor: Neuropathy Past Surgical History: , Other Additional Past Surgical Histo: eyes Alcohol Use: None Drug Use: None Adult General Chief Complaint Chief Complaint: LOWER EXT PAIN [facility] HPI Patient is a 33 year old female who presents with complaining of left lower extremity pain for 1 week. Patient states she had an accidental fall one week ago without loss of consciousness and other injuries and hit her left lower extremity and since then has pain in her left ankle and knee. Patient states she had history of chronic pain in right ankle using crutches. Patient states she took [id number] pain medication without improvement of her condition. Patient has history of diabetes and hypertension and did not take her blood pressure medication today. Review of Systems Review of Systems Constitutional: Denies fever or chills [] Eyes: Denies change in visual acuity, redness, or eye pain [] HENT: Denies nasal congestion or sore throat [] Respiratory: Denies cough or shortness of breath [] Cardiovascular: No additional information not addressed in HPI [] GI: Denies abdominal pain, nausea, vomiting, bloody stools or diarrhea [] : Denies dysuria or hematuria [] Musculoskeletal: Denies back pain, reports joint pain [] Integument: Denies rash or skin lesions [] Neurologic: Denies headache, focal weakness or sensory changes [] Endocrine: Denies polyuria or polydipsia [] All other systems were reviewed and found to be within normal limits, except as documented in this note. Current Medications Current Medications Current Medications Medications (Trade) Dose Ordered Sig/Rafaela Start Time Stop Time Status Last Admin Dose Admin Acetaminophen/ Codeine Phosphate (Tylenol #3) 1 tab 1X ONCE 03/09/19 10:15 03/09/19 10:16 DC 03/09/19 10:39 1 TAB Allergies Allergies Allergies Coded Allergies Type Severity Reaction Last Updated Verified No Known Drug Allergies 03/28/17 No Physical Exam Physical Exam Constitutional: Well developed, mild distress, non-toxic appearance, very thin patient. [] HENT: Normocephalic, atraumatic Eyes: PERRLA, EOMI, conjunctiva normal, no discharge. [] Neck: Normal range of motion, no tenderness, supple, no stridor. [] Cardiovascular:Heart rate regular rhythm, no murmur [] Lungs & Thorax: Bilateral breath sounds clear to auscultation [] Extremities: Left lower extremity without deformity or edema, normal range of motion of left knee and ankle negative Homans sign, shiny and thin skin with warmth face shape, patient states she takes prednisone for long time but doesn' t know for what reason, Marshall wrap right heat without wound or ulcer Neurologic: Alert and oriented X 3, normal motor function, normal sensory function, no focal deficits noted. [] Psychologic: Affect normal, judgement normal, mood normal. [] Current Patient Data Vital Signs Vital Signs Date Time Temp Pulse Resp B/P (MAP) Pulse Ox O2 Delivery O2 Flow Rate FiO2 03/09/19 10:39 16 100 Room Air 03/09/19 10:03 97.8 120 184/103 (130) 97.8 EKG EKG [] Radiology/Procedures Radiology/Procedures [facility] [address] [place] [address] IMAGING REPORT Signed PATIENT: GODWIN MARCUM ACCOUNT: [id number] : 1985 LOCATION: ER AGE: 33 SEX: F EXAM STATUS: REG ER ORD. PHYSICIAN: AKASH MAYA MD REASON: fall/pain left ankle PROCEDURE: ANKLE LEFT 3V Left knee and ankle radiograph 03/09/2019 10:05 AM INDICATION: Left knee pain post fall. Left ankle pain post fall. COMPARISON: None available. TECHNIQUE: 3 views of the left ankle and 4 views left knee are provided. FINDINGS: Left knee: There is no acute fracture or dislocation. There is no significant knee joint effusion. Bone mineralization is within normal limits. Joint spaces are maintained. Regional soft tissues are within normal limits. There is no soft tissue gas or osseous erosion. Left ankle: Tibial plafond and talar dome are intact. Ankle mortise is congruent. No acute fracture or dislocation is identified. Bone mineralization is within normal limits. Mild regional soft tissue swelling is identified. IMPRESSION: No acute fracture or dislocation of the left knee and ankle. Mild soft tissue swelling about the left ankle is noted. Electronically signed by: Addison Tellez MD (03/09/2019 10:46 AM) [id number] DICTATED and SIGNED BY: ADDISON TELLEZ MD DATE: 03/09/19 1046 Course & Med Decision Making Course & Med Decision Making Pertinent Imaging studies reviewed. (See chart for details) Evaluation of patient in ER showed 33-year-old female patient with multiple medical problem and complaining of left lower extremity pain after a fall one week ago. Patient did not have deformity or sign of injury. X-ray was unremarkable. Patient has history of hypertension and stated she didn't take her medication today. Blood pressure was elevated at 180s at arrival to ER that gradually decreased to 160s. Patient was advised to continue her home medication. I've spoken with the patient and/or caregivers. I've explained the patient's condition, diagnosis and treatment plan based on information available to me at this time. I've answered the patient's and/or caregivers questions and addressed any concerns. The patient and/or caregivers have a good understanding the patient's diagnosis, condition and treatment plan as can be expected at this point. Vital signs have been stabilized. The patient's condition is stable for discharge from the emergency department. The patient will pursue further outpatient evaluation with her primary care provider or other designated consulting physician as outlined in the discharge instructions. Patient and/or caregivers are agreeable to this plan of care and follow-up instructions have been explained in detail. The patient and/or caregivers have received these instructions in written format and expressed understanding of these discharge instructions. The patient and her caregivers are aware that if any significant change in condition or worsening of symptoms should prompt him to immediately return to this of the closest emergency department. If an emergent department is not readily available I would encourage him to call 911. Gus Disclaimer Dragon Disclaimer This electronic medical record was generated, in whole or in part, using a voice recognition dictation system. Departure Departure Impression: Primary Impression: Left leg pain Additional Impressions: Tachycardia Hypertension History of diabetes mellitus Disposition: HOME, SELF-CARE (at 1126) Condition: STABLE Referrals: SHUKRI DOWLING MD (PCP) Patient Instructions: Ankle Pain, Knee Pain Additional Instructions: Apply ice on the affected area Follow-up with your primary care physician in 3-5 days Return to ER if not getting better Scripts Acetaminophen With Codeine (TYLENOL WITH CODEINE #3 TABLET) 1 Each Tablet 1 TAB PO PRN Q6HRS PRN for PAIN, #20 TAB Prov: AKASH MAYA MD 03/09/19 Problem Qualifiers Additional Impressions: Hypertension Hypertension type: unspecified Qualified Codes: I10 - Essential (primary) hypertension AKASH MAYA MD Mar 09, 2019 10:08
[2019-03-09] MEDS ORDERED: ACETAMINOPHEN/CODEINE 300/30MG TABLET. PO ONE (10:15)
--- NOTE | 2019-03-09 10:49 | RAD ---
Left knee and ankle radiograph 03/09/2019 10:05 AM INDICATION: Left knee pain post fall. Left ankle pain post fall. COMPARISON: None available. TECHNIQUE: 3 views of the left ankle and 4 views left knee are provided. FINDINGS: Left knee: There is no acute fracture or dislocation. There is no significant knee joint effusion. Bone mineralization is within normal limits. Joint spaces are maintained. Regional soft tissues are within normal limits. There is no soft tissue gas or osseous erosion. Left ankle: Tibial plafond and talar dome are intact. Ankle mortise is congruent. No acute fracture or dislocation is identified. Bone mineralization is within normal limits. Mild regional soft tissue swelling is identified. IMPRESSION: No acute fracture or dislocation of the left knee and ankle. Mild soft tissue swelling about the left ankle is noted. Electronically signed by: Мария Jackson MD (03/09/2019 10:46 AM) [id number]
[2019-03-09] MEDS ORDERED: ACET-704 PO (11:28)
== END 2019-03-09 12:05 | disposition home or self-care (01) ==
LOC: ER 09:28
DX: M25.572 Pain in left ankle and joints of left foot (principal); M25.562 Pain in left knee; I10 Essential (primary) hypertension; R00.0 Tachycardia, unspecified; E10.40 Type 1 diabetes mellitus with diabetic neuropathy, unspecified; G89.29 Other chronic pain; Z98.890 Other specified postprocedural states
CPT/HCPCS: 73564; 73610; 99283

== ENCOUNTER 2019-09-22 12:45 | Emergency (ER) | payer OTHER ==
[~2019-09-22] VITALS: Ht 147.3 cm; Wt 36.3 kg
[~2019-09-22 12:45] MED LIST changes: +ACET-704 PO
[2019-09-22] MEDS ORDERED: IV DEXTROSE 5% - 0.9 % NACL 1,000 ML IV ONE (13:00)
--- NOTE | 2019-09-22 13:01 | PHYS DOC ---
Past Medical History Past Medical History: Diabetes-Type I, Hypertension Additional Past Medical Histor: Neuropathy Past Surgical History: , Other Additional Past Surgical Histo: eyes Alcohol Use: None Drug Use: None Adult General Chief Complaint Chief Complaint: HYPOGLYCEMIA HPI HPI Patient is a 34-year-old female, who presents to the emergency department via EMS for hypoglycemia. According to EMS, the patient's family found the patient unresponsive and EMS was called. EMS found the patient unresponsive to a sternal rub, diaphoretic, and cool to the touch. Her blood sugar read "low". EMS administered 250 mL of D10, with resultant improvement in the patient's mental status. The patient currently denies any pain. She denies any shortness of breath or chest pain. She has not had any vomiting or diarrhea. She is a limited historian, both in Panamanian, which she seems to speak adequately, as well as with the use of a Mauritian solution architect via language line. There are no alleviating or exacerbating factors to her symptoms, except as noted above. EMS reported that a blood glucose after dextrose was administered was over 300, is in the 140s upon arrival in the emergency department. The patient is uncertain when she last ate but thinks it was around 9 AM. Review of Systems Review of Systems Constitutional: Denies fever or chills [] Eyes: Denies change in visual acuity, redness, or eye pain [] HENT: Denies nasal congestion or sore throat [] Respiratory: Denies cough or shortness of breath [] Cardiovascular: The patient denies any shortness of breath, chest pain, palpitations, or orthopnea [] GI: Denies abdominal pain, nausea, vomiting, bloody stools or diarrhea [] : Denies dysuria or hematuria [] Musculoskeletal: Denies back pain or joint pain [] Integument: Denies rash or skin lesions [] Neurologic: Denies headache, focal weakness or sensory changes [] Endocrine: Denies polyuria or polydipsia [] All other systems were reviewed and found to be within normal limits, except as documented in this note. Current Medications Current Medications Current Medications Medications (Trade) Dose Ordered Sig/Rafaela Start Time Stop Time Status Last Admin Dose Admin Ceftriaxone Sodium (Rocephin) 1 gm 1X ONCE 09/22/19 14:30 09/22/19 14:31 DC 09/22/19 14:48 1 GM Dextrose (Dextrose 50%-Water Syringe) 25 gm 1X ONCE 09/22/19 14:45 09/22/19 14:46 DC 09/22/19 14:33 25 GM Dextrose/Sodium Chloride 1,000 ml @ 125 mls/hr 1X ONCE 09/22/19 13:00 09/22/19 20:59 09/22/19 13:00 125 MLS/HR Allergies Allergies Allergies Coded Allergies Type Severity Reaction Last Updated Verified No Known Drug Allergies 03/28/17 No Physical Exam Physical Exam PHYSICAL EXAM: CONSTITUTIONAL: Thin, frail appearing, appears older than stated age. HEAD: normocephalic, atraumatic EENT: PERRL, EOMI. Conjunctivae normal color, sclerae non-icteric; moist mucous membranes. NECK: Supple, non-tender; no meningismus. LUNGS: Lungs CTA, breathing even and unlabored. Normal air movement. HEART: Regular rate and rhythm, no murmur CHEST: No deformity; non-tender ABDOMEN: The abdomen is soft, and non-tender, no masses or bruits. EXTREM: Normal ROM; no deformity, no calf tenderness. Normal pulses palpable in all extremities. There is no pedal edema. SKIN: No rash; no diaphoresis NEURO: Alert; normal speech and cognition; CN's grossly intact; strength grossly intact without focal deficit. BACK: No CVA TTP. Current Patient Data Vital Signs Vital Signs Date Time Temp Pulse Resp B/P (MAP) Pulse Ox O2 Delivery O2 Flow Rate FiO2 09/22/19 14:50 90.8 90.8 09/22/19 14:16 84 16 114/69 (84) 96 Room Air Lab Values Laboratory Tests Test 09/22/19 12:49 09/22/19 13:07 09/22/19 13:15 09/22/19 13:52 Glucose (Fingerstick) 147 mg/dL (70-99) H 95 mg/dL (70-99) White Blood Count 6.9 x10^3/uL (4.0-11.0) Red Blood Count 3.01 x10^6/uL (3.50-5.40) L Hemoglobin 8.5 g/dL (12.0-15.5) L Hematocrit 27.1 % (36.0-47.0) L Mean Corpuscular Volume 90 fL (79-100) Mean Corpuscular Hemoglobin 28 pg (25-35) Mean Corpuscular Hemoglobin Concent 31 g/dL (31-37) Red Cell Distribution Width 16.5 % (11.5-14.5) H Platelet Count 360 x10^3/uL (140-400) Neutrophils (%) (Auto) 70 % (31-73) Lymphocytes (%) (Auto) 21 % (24-48) L Monocytes (%) (Auto) 3 % (0-9) Eosinophils (%) (Auto) 6 % (0-3) H Basophils (%) (Auto) 1 % (0-3) Neutrophils # (Auto) 4.8 x10^3/uL (1.8-7.7) Lymphocytes # (Auto) 1.4 x10^3/uL (1.0-4.8) Monocytes # (Auto) 0.2 x10^3/uL (0.0-1.1) Eosinophils # (Auto) 0.4 x10^3/uL (0.0-0.7) Basophils # (Auto) 0.0 x10^3/uL (0.0-0.2) Sodium Level 141 mmol/L (136-145) Potassium Level 4.4 mmol/L (3.5-5.1) Chloride Level 111 mmol/L (98-107) H Carbon Dioxide Level 17 mmol/L (21-32) L Anion Gap 13 (6-14) Blood Urea Nitrogen 19 mg/dL (7-20) Creatinine 1.5 mg/dL (0.6-1.0) H Estimated GFR (Cockcroft-Gault) 40.0 BUN/Creatinine Ratio 13 (6-20) Glucose Level 92 mg/dL (70-99) Lactic Acid Level 1.4 mmol/L (0.4-2.0) Calcium Level 8.9 mg/dL (8.5-10.1) Magnesium Level 2.3 mg/dL (1.8-2.4) Total Bilirubin 0.2 mg/dL (0.2-1.0) Aspartate Amino Transferase (AST) 42 U/L (15-37) H Alanine Aminotransferase (ALT) 57 U/L (14-59) Alkaline Phosphatase 95 U/L (46-116) Troponin I Quantitative < 0.017 ng/mL (0.000-0.055) IH-Bkk-A-Type Natriuretic Peptide 2553 pg/mL (0-124) H Total Protein 8.5 g/dL (6.4-8.2) H Albumin 3.4 g/dL (3.4-5.0) Albumin/Globulin Ratio 0.7 (1.0-1.7) L Lipase 493 U/L (73-393) H Thyroid Stimulating Hormone (TSH) 6.124 uIU/mL (0.358-3.74) H Free Thyroxine 0.93 ng/dL (0.76-1.46) Urine Collection Type Unknown Urine Color Yellow Urine Clarity Clear Urine pH 5.5 Urine Specific [place] 1.010 Urine Protein 100 mg/dL (NEG-TRACE) Urine Glucose (UA) 250 mg/dL (NEG) Urine Ketones (Stick) Negative mg/dL (NEG) Urine Blood Moderate (NEG) Urine Nitrite Negative (NEG) Urine Bilirubin Negative (NEG) Urine Urobilinogen Dipstick 0.2 mg/dL (0.2 mg/dL) Urine Leukocyte Esterase Negative (NEG) Urine RBC 6-10 /HPF (0-2) Urine WBC Tntc /HPF (0-4) Urine Squamous Epithelial Cells Occ /LPF Urine Bacteria Many /HPF (0-FEW) Test 09/22/19 13:56 09/22/19 13:58 09/22/19 14:28 09/22/19 15:10 POC Urine HCG, Qualitative Hcg negative (Negative) Glucose (Fingerstick) 85 mg/dL (70-99) 68 mg/dL (70-99) L 259 mg/dL (70-99) H Laboratory Tests 09/22/19 13:15 Laboratory Tests 09/22/19 13:15 EKG EKG []Normal sinus rhythm a rate of 86 bpm, normal axis, normal intervals, nonspecific ST/T changes are present. Radiology/Procedures Radiology/Procedures PROCEDURE: PORTABLE CHEST 1V Portable chest x-ray without comparison for weakness. FINDINGS: The lungs are clear. The cardiomediastinum is grossly unremarkable. No significant soft tissue or osseous abnormalities. IMPRESSION: No acute cardiopulmonary abnormality. [] Course & Med Decision Making Course & Med Decision Making Pertinent Labs and Imaging studies reviewed. (See chart for details) []2:40 PM: The patient's condition remains stable at this time. She is hypothermic, for unknown reasons. Her blood sugar continues to drop, despite the use of intravenous dextrose, via D5 infusion, and having eaten. The patient will be given additional dextrose 50%, and will need to be hospitalized. Patient is requesting transfer to , where she has been seen in the past. transfer center has been called to initiate transfer. 3:30 PM: Pt accepted to Dr Shahid at , awaiting bed assignment. CRITICAL CARE TIME: [45] Minutes, excluding any procedures and care of other patients. Dragon Disclaimer Dragon Disclaimer This electronic medical record was generated, in whole or in part, using a voice recognition dictation system. Departure Departure Impression: Primary Impression: Hypoglycemia Additional Impressions: Hypothermia UTI (urinary tract infection) Disposition: 02 TRANSFER [facility] () Condition: STABLE Referrals: SHUKRI DOWLING MD (PCP) Problem Qualifiers JUNITO GR MD Sep 22, 2019 13:01
[2019-09-22] MEDS ORDERED: DEXTROSE 50% 25 GM / 50ML DISP.SYRIN. IV ONE ×2 (13:11→14:45)
[2019-09-22 13:30] LABS: BASO % 1 % (0-3); EOS # 0.4 x10^3/uL (0.0-0.7); EOS % 6 % (0-3); HEMATOCRIT 27.1 % (36.0-47.0); HEMOGLOBIN 8.5 g/dL (12.0-15.5); LYMPH # 1.4 x10^3/uL (1.0-4.8); LYMPH % 21 % (24-48); MEAN CORPUSCULAR HEMOGLOBIN 28 pg (25-35); MEAN CORPUSCULAR HGB CONC 31 g/dL (31-37); MEAN CORPUSCULAR VOLUME 90 fL (79-100); MONO # 0.2 x10^3/uL (0.0-1.1); MONO % 3 % (0-9); NEUT # 4.8 x10^3/uL (1.8-7.7); NEUT % 70 % (31-73); PLATELET COUNT 360 x10^3/uL (140-400); RED BLOOD COUNT 3.01 x10^6/uL (3.50-5.40); RED CELL DISTRIBUTION WIDTH 16.5 % (11.5-14.5); WHITE BLOOD COUNT 6.9 x10^3/uL (4.0-11.0)
[2019-09-22 13:47] LABS: CALCIUM 8.9 mg/dL (8.5-10.1); CREATININE 1.5 mg/dL (0.6-1.0); POTASSIUM 4.4 mmol/L (3.5-5.1)
[2019-09-22 13:53] LABS: ALBUMIN 3.4 g/dL (3.4-5.0); ALBUMIN/GLOBULIN RATIO 0.7 (1.0-1.7); MAGNESIUM 2.3 mg/dL (1.8-2.4); TOTAL BILIRUBIN 0.2 mg/dL (0.2-1.0); TOTAL PROTEIN 8.5 g/dL (6.4-8.2)
[2019-09-22 14:04] LABS: BILIRUBIN,URINE NEGATIVE (NEG); CLARITY,URINE CLEAR; COLOR,URINE YELLOW; NITRITE,URINE NEGATIVE (NEG); PH,URINE 5.5; PROTEIN,URINE 100 mg/dL (NEG-TRACE); UROBILINOGEN,URINE 0.2 mg/dL (0.2 mg/dL)
[2019-09-22 14:09] LABS: BACTERIA,URINE MANY /HPF (0-FEW); WBC,URINE TNTC /HPF (0-4)
[2019-09-22 14:10] LABS: SQUAMOUS EPITHELIAL CELL,UR OCC /LPF
[2019-09-22 14:18] LABS: FREE T4 0.93 ng/dL (0.76-1.46); THYROID STIM HORMONE (TSH) 6.124 uIU/mL (0.358-3.74)
[2019-09-22] MEDS ORDERED: cefTRIAXone IV Push 1 GM VIAL. IVP ONE (14:30)
--- NOTE | 2019-09-22 14:40 | RAD ---
Portable chest x-ray without comparison for weakness. FINDINGS: The lungs are clear. The cardiomediastinum is grossly unremarkable. No significant soft tissue or osseous abnormalities. IMPRESSION: No acute cardiopulmonary abnormality. Electronically signed by: Reggie Leon MD (09/22/2019 2:37 PM) [facility]
[2019-09-22 16:16] VITALS: BP 99/64
--- NOTE | 2019-09-22 16:49 | EKG ---
[facility] [address] [place] [address] Test Date: 2019-09-22 Test Time: 12:54:57 Pat Name: GODWIN MARCUM Department: Room: Gender: F Therapist Phys: : [id number] Requested By: JUNITO GR Order Number: [id number] Reading MD: Matthew Villeda MD Measurements Intervals [place] Rate: 85 P: 59 MN: 114 QRS: 24 QRSD: 76 T: -1 QT: 392 QTc: 472 Interpretive Statements SINUS RHYTHM Electronically Signed On 10-06-2019 8:49:25 CLAY MODELER by Matthew Villeda MD
== END 2019-09-22 16:53 | disposition short-term general hospital (02) ==
LOC: ER 12:45
DX: E10.649 Type 1 diabetes mellitus with hypoglycemia without coma (principal); T68.XXXA Hypothermia, initial encounter; N39.0 Urinary tract infection, site not specified; I10 Essential (primary) hypertension
CPT/HCPCS: 36415; 71045; 80053; 81001; 81025; 82962; 83605; 83690; 83735; 83880; 84439; 84443; 84484; 85025; 87086; 93005; 96365; 96366; 96375; 96376; 99291; J0696; J7042; 87186

== ENCOUNTER 2019-10-17 13:21 | Emergency (ER) | payer OTHER ==
[~2019-10-17] VITALS: Ht 147.3 cm; Wt 36.3 kg
[2019-10-17 14:46] VITALS: BP 149/112
[2019-10-17 15:11] LABS: BASO # 0.1 x10^3/uL (0.0-0.2); BASO % 1 % (0-3); EOS # 0.3 x10^3/uL (0.0-0.7); EOS % 4 % (0-3); HEMATOCRIT 23.5 % (36.0-47.0); HEMOGLOBIN 7.5 g/dL (12.0-15.5); LYMPH # 1.3 x10^3/uL (1.0-4.8); LYMPH % 17 % (24-48); MEAN CORPUSCULAR HEMOGLOBIN 28 pg (25-35); MEAN CORPUSCULAR HGB CONC 32 g/dL (31-37); MEAN CORPUSCULAR VOLUME 89 fL (79-100); MONO # 0.4 x10^3/uL (0.0-1.1); MONO % 5 % (0-9); NEUT # 5.9 x10^3/uL (1.8-7.7); NEUT % 74 % (31-73); PLATELET COUNT 281 x10^3/uL (140-400); RED BLOOD COUNT 2.65 x10^6/uL (3.50-5.40); RED CELL DISTRIBUTION WIDTH 15.6 % (11.5-14.5)
[2019-10-17 15:25] LABS: CALCIUM 8.3 mg/dL (8.5-10.1); CREATININE 1.6 mg/dL (0.6-1.0); GFR 37.1; POTASSIUM 4.4 mmol/L (3.5-5.1)
[2019-10-17 15:29] LABS: ALBUMIN 2.6 g/dL (3.4-5.0); ALBUMIN/GLOBULIN RATIO 0.5 (1.0-1.7); TOTAL BILIRUBIN 0.2 mg/dL (0.2-1.0); TOTAL PROTEIN 7.5 g/dL (6.4-8.2)
--- NOTE | 2019-10-17 15:36 | RAD ---
Right Leg Venous Doppler Ultrasound, 10/17/2019 Indication: Diabetic ulcer, bleeding right total Comparison: None available Procedure: Real-time grayscale, color flow color duplex Doppler and spectral analysis are obtained with and without compression in the area of the common femoral vein, superficial femoral vein - femoral vein junction, main femoral vein (superficial femoral vein) and popliteal vein. Veins of the proximal calf are also imaged. Findings: There is normal duplex flow, color flow and compressibility of all visualized vein segments. No evidence of deep venous thrombus is present. Impression: Negative venous Doppler of right lower extremity Electronically signed by: Kaylie Connor MD (10/17/2019 3:33 PM) [facility]
[2019-10-17] MEDS ORDERED: IV NORMAL SALINE 1000ML BAG 1,000 ML IV ONE (15:45)
--- NOTE | 2019-10-17 15:59 | PHYS DOC ---
Past Medical History Past Medical History: Diabetes-Type I, Hypertension Additional Past Medical Histor: Neuropathy Past Surgical History: , Other Additional Past Surgical Histo: eyes Alcohol Use: None Drug Use: None Adult General Chief Complaint Chief Complaint: TOE PROBLEM HPI HPI Patient is a 34 year old female who presents with diabetic wounds to her right foot. Patient states she goes to for wound care on her foot but states she does not remember the doctors name. Right toes wound that started 2 days ago. Patient rates her pain a 6/10. Review of Systems Review of Systems Integument:Right great toe redness and pain. Denies rash or skin lesions [] All other systems were reviewed and found to be within normal limits, except as documented in this note. Current Medications Current Medications Current Medications Medications (Trade) Dose Ordered Sig/Rafaela Start Time Stop Time Status Last Admin Dose Admin Acetaminophen (Tylenol) 650 mg PRN Q6HRS PRN 10/17/19 17:15 10/17/19 17:18 DC Acetaminophen/ Codeine Phosphate (Tylenol #3) 1 tab PRN Q6HRS PRN 10/17/19 17:15 10/17/19 17:18 DC Dextrose (Dextrose 50%-Water Syringe) 12.5 gm PRN Q15MIN PRN 10/17/19 17:15 10/17/19 17:18 DC Docusate Sodium (Colace) 100 mg PRN DAILY PRN 10/17/19 17:15 10/17/19 17:18 DC Enoxaparin Sodium (Lovenox 30mg Syringe) 30 mg Q24H 10/17/19 17:15 10/17/19 17:18 DC Hydralazine HCl (Apresoline Inj) 10 mg PRN Q4HRS PRN 10/17/19 17:15 10/17/19 17:18 DC Non-Formulary Medication (Insulin Aspart (Novolog)) 32 unit [id number] 10/18/19 09:00 10/17/19 17:18 DC Non-Formulary Medication (Insulin Detemir (Levemir Flextouch)) 20 units QHS 10/17/19 21:00 10/17/19 17:18 DC Ondansetron HCl (Zofran) 8 mg PRN Q8HRS PRN 10/17/19 17:15 11/17/19 17:18 DC Piperacillin Sod/ Tazobactam Sod (Zosyn) 2.25 gm PRN DAILY PRN 10/17/19 17:15 UNV Prochlorperazine Edisylate (Compazine) 10 mg PRN Q8HRS PRN 10/17/19 17:15 10/17/19 17:18 DC Sodium Chloride 1,000 ml @ 1,000 mls/hr 1X ONCE 10/17/19 15:45 10/17/19 16:44 DC 10/17/19 15:45 1,000 MLS/HR Tramadol HCl (Ultram) 50 mg PRN Q6HRS PRN 10/17/19 17:15 10/17/19 17:18 DC Vancomycin HCl (Vanco Per Pharmacy) 1 each PRN DAILY PRN 10/17/19 17:15 10/17/19 17:18 DC Vancomycin HCl (Vancomycin) 1 gm PRN DAILY PRN 10/17/19 17:15 UNV Allergies Allergies Allergies Coded Allergies Type Severity Reaction Last Updated Verified No Known Drug Allergies 03/28/17 No Physical Exam Physical Exam Constitutional: Well developed, well nourished, no acute distress, non-toxic appearance. [] HENT: Normocephalic, atraumatic, bilateral external ears normal, oropharynx moist, no oral exudates, nose normal. [] Eyes: PERRLA, EOMI, conjunctiva normal, no discharge. [] Neck: Normal range of motion, no tenderness, supple, no stridor. [] Cardiovascular:Heart rate regular rhythm, no murmur [] Lungs & Thorax: Bilateral breath sounds clear to auscultation [] Abdomen: Bowel sounds normal, soft, no tenderness, no masses, no pulsatile masses. [] Skin: Wound to heel. Skin darker color and flaking to right foot. Warm, dry, Right big toe erythema with drainage, no rash. [] Extremities: No tenderness, no cyanosis, no clubbing, ROM intact, no edema. [] Neurologic: Alert and oriented X 3, normal motor function, normal sensory function, no focal deficits noted. [] Psychologic: Affect normal, judgement normal, mood normal. [] Current Patient Data Vital Signs Vital Signs Date Time Temp Pulse Resp B/P (MAP) Pulse Ox O2 Delivery O2 Flow Rate FiO2 10/17/19 14:46 97.8 116 18 149/112 (124) 100 Room Air 97.8 Lab Values Laboratory Tests Test 10/17/19 15:00 White Blood Count 8.0 x10^3/uL (4.0-11.0) Red Blood Count 2.65 x10^6/uL (3.50-5.40) L Hemoglobin 7.5 g/dL (12.0-15.5) L Hematocrit 23.5 % (36.0-47.0) L Mean Corpuscular Volume 89 fL (79-100) Mean Corpuscular Hemoglobin 28 pg (25-35) Mean Corpuscular Hemoglobin Concent 32 g/dL (31-37) Red Cell Distribution Width 15.6 % (11.5-14.5) H Platelet Count 281 x10^3/uL (140-400) Neutrophils (%) (Auto) 74 % (31-73) H Lymphocytes (%) (Auto) 17 % (24-48) L Monocytes (%) (Auto) 5 % (0-9) Eosinophils (%) (Auto) 4 % (0-3) H Basophils (%) (Auto) 1 % (0-3) Neutrophils # (Auto) 5.9 x10^3/uL (1.8-7.7) Lymphocytes # (Auto) 1.3 x10^3/uL (1.0-4.8) Monocytes # (Auto) 0.4 x10^3/uL (0.0-1.1) Eosinophils # (Auto) 0.3 x10^3/uL (0.0-0.7) Basophils # (Auto) 0.1 x10^3/uL (0.0-0.2) Sodium Level 138 mmol/L (136-145) Potassium Level 4.4 mmol/L (3.5-5.1) Chloride Level 107 mmol/L (98-107) Carbon Dioxide Level 17 mmol/L (21-32) L Anion Gap 14 (6-14) Blood Urea Nitrogen 15 mg/dL (7-20) Creatinine 1.6 mg/dL (0.6-1.0) H Estimated GFR (Cockcroft-Gault) 37.1 BUN/Creatinine Ratio 9 (6-20) Glucose Level 367 mg/dL (70-99) H Lactic Acid Level 1.1 mmol/L (0.4-2.0) Calcium Level 8.3 mg/dL (8.5-10.1) L Total Bilirubin 0.2 mg/dL (0.2-1.0) Aspartate Amino Transferase (AST) 41 U/L (15-37) H Alanine Aminotransferase (ALT) 48 U/L (14-59) Alkaline Phosphatase 82 U/L (46-116) Total Protein 7.5 g/dL (6.4-8.2) Albumin 2.6 g/dL (3.4-5.0) L Albumin/Globulin Ratio 0.5 (1.0-1.7) L Laboratory Tests 10/17/19 15:00 Laboratory Tests 10/17/19 15:00 EKG EKG Sinus Tachy and no STEMI[] Interpretation Time: [address] Fernandez Radiology/Procedures Radiology/Procedures [] Impressions: [facility] [address] [place] [address] IMAGING REPORT Signed PATIENT: GODWIN MARCUM ACCOUNT: [id number] : 1985 LOCATION: ER AGE: 34 SEX: F EXAM STATUS: REG ER ORD. PHYSICIAN: VERONIQUE SANTOS APRN REASON: SORES ON FOOT NOT READY AT 3PM PROCEDURE: FOOT RIGHT 3V Exam: Right foot 3 views INDICATION: Sores on foot TECHNIQUE: Frontal, lateral and oblique views of the right foot Comparisons: None FINDINGS: Soft tissue ulceration at the heel is noted. The calcaneus has a flattened orientation with a sclerotic appearance. No acute fractures identified. Diffuse osteopenia in the remainder of the foot. Joint spaces are well-maintained. IMPRESSION: Ulceration at the heel with sclerotic appearance of the calcaneus which is nonspecific however differential considerations include chronic fracture deformity and/or osteomyelitis. Electronically signed by: Brandi Patterson MD (10/17/2019 4:38 PM) [facility] DICTATED and SIGNED BY: BRANDI PATTERSON MD DATE: 10/17/19 2734 Course & Med Decision Making Course & Med Decision Making Patient's right foot is not swollen or tender but is a darker color and skin is flaky and the rest of her leg. Patient states she does have numbness and tingling in the leg. Patient is a very poor historian. Patient states that the sore that is on her heel of her right foot is been there for 2 years and on her right great toe is become red and now healing and that is new. She states the right toe was peeling and looked infected and she's been peeling skin off of it. The toe is red and looks to have yellow drainage coming from it. There is no toenail on the toe. The toe looks swollen 1+. Patient denies fever, nausea, vomiting, body aches, leg pain. There is no calf tenderness or swelling. There is no swelling in the extremity at all. Patient states that it's a burning type pain that she feels. Patient has a history of diabetes, diabetic neuropathy, hypertension, tachycardia. Patient is again a very poor historian on her history. Patient is Farheen speaking and a rib sawyer phone was used. Lungs are clear in all lobes. Abdomen is soft and nontender. Patient denies dizziness, abdominal pain, headache, fever, syncope, weakness, shortness of air, chest pain, visual changes. Abdomen is soft and nontender. Lungs clear to auscultation in all lobes. Speaks in full clear sentences. Patient's hemoglobin is 7.5 and 1 month ago it was 8.5. Does not look the patient has a history of anemia. Patient denies bleeding from her rectum or anywhere else medical history of this. Foot xray shows IMPRESSION: Ulceration at the heel with sclerotic appearance of the calcaneus which is nonspecific however differential considerations include chronic fracture deformity and/or osteomyelitis. Patient states she was to go home because she is only to take care of her young daughter and states that she would come back to the hospital and her brother concerning a week. I have explained that the patient is diabetic and that the infection is very bad in her foot and that she could become septic and there is a risk of . I have also explained that her hemoglobin has also dropped she is tachycardic. Patient is alert and oriented and she states her understanding of all of this but she states that she must go home. She states that she will sign out AGAINST MEDICAL ADVICE and take the risk. Patient is refusing all other care. I have discussed this with Dr Fernandez also. I'm sending the patient home with Keflex. 1719: She left without taking discharge papers or her antibiotic. I am having the nurse call the patient and call in the prescription for the patient. Gus Disclaimer Gus Disclaimer This electronic medical record was generated, in whole or in part, using a voice recognition dictation system. Departure Departure Impression: Primary Impression: Diabetic foot ulcer Additional Impression: Anemia Disposition: 07 AGAINST MEDICAL ADVICE Condition: GOOD Referrals: SHUKRI DOWLING MD (PCP) Patient Instructions: Skin Ulcer Additional Instructions: Return back to the hospital as soon as well. Scripts Cephalexin (KEFLEX) 500 Mg Capsule 2 CAP PO BID for 10 Days, #40 CAP 0 Refills Prov: VERONIQUE SANTOS POUND KEEPER 10/17/19 Problem Qualifiers Primary Impression: Diabetic foot ulcer Diabetic foot ulcer location: toe Diabetes mellitus type: type 1 Laterality: right Non-pressure ulcer stage: unspecified non-pressure ulcer stage Qualified Codes: E10.621 - Type 1 diabetes mellitus with foot ulcer; L97.519 - Non-pressure chronic ulcer of other part of right foot with unspecified severity Additional Impression: Anemia Anemia type: unspecified type Qualified Codes: D64.9 - Anemia, unspecified VERONIQUE SANTOS POUND KEEPER Oct 17, 2019 15:59
--- NOTE | 2019-10-17 16:41 | RAD ---
Exam: Right foot 3 views INDICATION: Sores on foot TECHNIQUE: Frontal, lateral and oblique views of the right foot Comparisons: None FINDINGS: Soft tissue ulceration at the heel is noted. The calcaneus has a flattened orientation with a sclerotic appearance. No acute fractures identified. Diffuse osteopenia in the remainder of the foot. Joint spaces are well-maintained. IMPRESSION: Ulceration at the heel with sclerotic appearance of the calcaneus which is nonspecific however differential considerations include chronic fracture deformity and/or osteomyelitis. Electronically signed by: Brandi Little MD (10/17/2019 4:38 PM) [facility] [place]
--- NOTE | 2019-10-17 17:09 | PDOC1 ---
History and Physical Date of Admission Date of Admission DATE: 10/17/19 TIME: 17:04 Identification/Chief Complaint Chief Complaint seen in er with diabetic wounds to her right foot. ///goes to for wound care on her foot but states she does not remember the doctors name. Right toes wound that started 2 days ago. Patient rates her pain a 6/10. Past Medical History Past Medical History Past Medical History Past Medical History Past Medical History: Diabetes-Type I, Hypertension Additional Past Medical Histor: Neuropathy Past Surgical History: , Other Additional Past Surgical Histo: eyes Alcohol Use: None Drug Use: None Cardiovascular: HTN CENTRAL NERVOUS SYSTEM: Periperal neuropathy Endocrine: Diabetes Past Surgical History Past Surgical History: Family History Family History Past Medical History Endocrine: Diabetes Past Surgical History Past Surgical History: Family History Family History: Hypertension Social History Smoke: No ALCOHOL: none Drugs: None Family History: Hypertension Social History ALCOHOL: none Drugs: None Current Problem List Problem List Problems Medical Problems: (1) Anemia Status: Acute (2) Diabetic foot ulcer Status: Acute Current Medications Current Medications Current Medications Sodium Chloride 1,000 ml @ 1,000 mls/hr 1X ONCE IV Last administered on 10/17/19at 15:45; Start 10/17/19 at 15:45; Stop 10/17/19 at 16:44; Status DC Active Scripts Active Tylenol With Codeine #3 Tablet (Acetaminophen/Codeine Phosphate) 1 Each Tablet 1 Tab PO PRN Q6HRS PRN Vancomycin Hcl 1 Gm Vial 1 Each MC PRN DAILY PRN Tramadol Hcl 50 Mg Tablet 50 Mg PO PRN Q6HRS PRN Prochlorperazine Edisylate 10 Mg/2 Ml Vial 10 Mg IV PRN Q8HRS PRN Zosyn 2.25 Gram Vial (Piperacillin Sodium/Tazobactam) 2.25 Gm Vial 1 Each MC PRN DAILY PRN Ondansetron Hcl 4 Mg/2 Ml Vial (Ondansetron Hcl/Pf) 4 Mg/2 Ml Vial 8 Mg IV PRN Q8HRS PRN Levemir Flextouch (Insulin Detemir) 100 Unit/1 Ml Insuln.pen 20 Units SQ QHS Hydralazine Hcl 20 Mg/1 Ml Vial 10 Mg IVP PRN Q4HRS PRN Enoxaparin Sodium 30 Mg/0.3 Ml Disp.syrin 30 Mg SQ Q24H Colace (Docusate Sodium) 100 Mg Capsule 100 Mg PO PRN DAILY PRN Dextrose 50%-Water Syringe (Dextrose 50 % In Water) 50 Ml Disp.syrin 12.5 Gm IV PRN Q15MIN PRN Tylenol (Acetaminophen) 325 Mg Tablet 650 Mg PO PRN Q6HRS PRN Reported Novolog (Insulin Aspart) 100 Unit/1 Ml Vial 32 Unit SQ [id number] Allergies Allergies: Coded Allergies: No Known Drug Allergies (Unverified , 03/28/17) ROS General: YES: Fatigue PSYCHOLOGICAL ROS: No: Anxiety, Behavioral Disorder, Concentration difficultie, Decreased libido, Depression, Disorientation, Hallucinations, Hostility, Irritablity, Memory difficulties, Mood Swings, Obsessive thoughts, Physical abuse, Sexual abuse, Sleep disturbances, Suicidal ideation, Other Eyes: No Blurry vision, No Decreased vision, No Double vision, No Dry eyes, No Excessive tearing, No Eye Pain, No Itchy Eyes, No Loss of vision, No Photophobia, No Scotomata, No Uses contacts, No Uses glasses, No Other ALLERGY AND IMMUNOLOGY: No: Hives, Insect Bite Sensitivity, Itchy/Watery Eyes, Nasal Congestion, Post Nasal Drip, Seasonal Allergies, Other Cardiovascular: No Chest Pain, No Palpitations, No Orthopnea, No Paroxysmal Noc. Dyspnea, No Edema, No Lt Headedness, No Other Gastrointestinal: No Nausea, No Vomiting, No Abdominal Pain, No Diarrhea, No Constipation, No Melena, No Hematochezia, No Other Musculoskeletal: Yes Gait Disturbance, Yes Joint Stiffness Skin: Yes Skin Lesion Changes Physical Exam Physical Exam HENT: Normocephalic, atraumatic, bilateral external ears normal, oropharynx moist, no oral exudates, nose normal. [] Eyes: PERRLA, EOMI, conjunctiva normal, no discharge. [] Neck: Normal range of motion, no tenderness, supple, no stridor. [] Cardiovascular:Heart rate regular rhythm, no murmur [] Lungs & Thorax: Bilateral breath sounds clear to auscultation [] Abdomen: Bowel sounds normal, soft, no tenderness, no masses, no pulsatile masses. [] Skin: Wound to heel. Skin darker color and flaking to right foot. Warm, dry, Right big toe erythema with drainage, no rash. [] Extremities: No tenderness, no cyanosis, no clubbing, ROM intact, no edema. [] Neurologic: Alert and oriented X 3, normal motor function, normal sensory functi on, no focal deficits noted. [] Psychologic: Affect normal, judgement normal, mood normal. [] General: Alert, Oriented X3, Cooperative, No acute distress HEENT: Atraumatic Lungs: Clear to auscultation Breasts: Not examined Abdomen: Soft Rectal Exam: not examined Neuro: Cranial nerves 3-12 NL Vitals Vitals Vital Signs Date Time Temp Pulse Resp B/P (MAP) Pulse Ox O2 Delivery O2 Flow Rate FiO2 10/17/19 14:46 97.8 116 18 149/112 (124) 100 Room Air 97.8 Labs Labs Laboratory Tests Test 10/17/19 15:00 White Blood Count 8.0 x10^3/uL (4.0-11.0) Red Blood Count 2.65 x10^6/uL (3.50-5.40) Hemoglobin 7.5 g/dL (12.0-15.5) Hematocrit 23.5 % (36.0-47.0) Mean Corpuscular Volume 89 fL (79-100) Mean Corpuscular Hemoglobin 28 pg (25-35) Mean Corpuscular Hemoglobin Concent 32 g/dL (31-37) Red Cell Distribution Width 15.6 % (11.5-14.5) Platelet Count 281 x10^3/uL (140-400) Neutrophils (%) (Auto) 74 % (31-73) Lymphocytes (%) (Auto) 17 % (24-48) Monocytes (%) (Auto) 5 % (0-9) Eosinophils (%) (Auto) 4 % (0-3) Basophils (%) (Auto) 1 % (0-3) Neutrophils # (Auto) 5.9 x10^3/uL (1.8-7.7) Lymphocytes # (Auto) 1.3 x10^3/uL (1.0-4.8) Monocytes # (Auto) 0.4 x10^3/uL (0.0-1.1) Eosinophils # (Auto) 0.3 x10^3/uL (0.0-0.7) Basophils # (Auto) 0.1 x10^3/uL (0.0-0.2) Sodium Level 138 mmol/L (136-145) Potassium Level 4.4 mmol/L (3.5-5.1) Chloride Level 107 mmol/L (98-107) Carbon Dioxide Level 17 mmol/L (21-32) Anion Gap 14 (6-14) Blood Urea Nitrogen 15 mg/dL (7-20) Creatinine 1.6 mg/dL (0.6-1.0) Estimated GFR (Cockcroft-Gault) 37.1 BUN/Creatinine Ratio 9 (6-20) Glucose Level 367 mg/dL (70-99) Lactic Acid Level 1.1 mmol/L (0.4-2.0) Calcium Level 8.3 mg/dL (8.5-10.1) Total Bilirubin 0.2 mg/dL (0.2-1.0) Aspartate Amino Transf (AST/SGOT) 41 U/L (15-37) Alanine Aminotransferase (ALT/SGPT) 48 U/L (14-59) Alkaline Phosphatase 82 U/L (46-116) Total Protein 7.5 g/dL (6.4-8.2) Albumin 2.6 g/dL (3.4-5.0) Albumin/Globulin Ratio 0.5 (1.0-1.7) Laboratory Tests Test 10/17/19 15:00 White Blood Count 8.0 x10^3/uL (4.0-11.0) Red Blood Count 2.65 x10^6/uL (3.50-5.40) Hemoglobin 7.5 g/dL (12.0-15.5) Hematocrit 23.5 % (36.0-47.0) Mean Corpuscular Volume 89 fL (79-100) Mean Corpuscular Hemoglobin 28 pg (25-35) Mean Corpuscular Hemoglobin Concent 32 g/dL (31-37) Red Cell Distribution Width 15.6 % (11.5-14.5) Platelet Count 281 x10^3/uL (140-400) Neutrophils (%) (Auto) 74 % (31-73) Lymphocytes (%) (Auto) 17 % (24-48) Monocytes (%) (Auto) 5 % (0-9) Eosinophils (%) (Auto) 4 % (0-3) Basophils (%) (Auto) 1 % (0-3) Neutrophils # (Auto) 5.9 x10^3/uL (1.8-7.7) Lymphocytes # (Auto) 1.3 x10^3/uL (1.0-4.8) Monocytes # (Auto) 0.4 x10^3/uL (0.0-1.1) Eosinophils # (Auto) 0.3 x10^3/uL (0.0-0.7) Basophils # (Auto) 0.1 x10^3/uL (0.0-0.2) Sodium Level 138 mmol/L (136-145) Potassium Level 4.4 mmol/L (3.5-5.1) Chloride Level 107 mmol/L (98-107) Carbon Dioxide Level 17 mmol/L (21-32) Anion Gap 14 (6-14) Blood Urea Nitrogen 15 mg/dL (7-20) Creatinine 1.6 mg/dL (0.6-1.0) Estimated GFR (Cockcroft-Gault) 37.1 BUN/Creatinine Ratio 9 (6-20) Glucose Level 367 mg/dL (70-99) Lactic Acid Level 1.1 mmol/L (0.4-2.0) Calcium Level 8.3 mg/dL (8.5-10.1) Total Bilirubin 0.2 mg/dL (0.2-1.0) Aspartate Amino Transf (AST/SGOT) 41 U/L (15-37) Alanine Aminotransferase (ALT/SGPT) 48 U/L (14-59) Alkaline Phosphatase 82 U/L (46-116) Total Protein 7.5 g/dL (6.4-8.2) Albumin 2.6 g/dL (3.4-5.0) Albumin/Globulin Ratio 0.5 (1.0-1.7) Images Images OB: 1985 LOCATION: ER AGE: 34 SEX: F EXAM STATUS: REG ER ORD. PHYSICIAN: VERONIQUE SANTOS APRN REASON: DIABETIC FOOT, SORES PROCEDURE: VENOUS LOWER EXTREMITY RIGHT Right Leg Venous Doppler Ultrasound, 10/17/2019 Indication: Diabetic ulcer, bleeding right total Comparison: None available Procedure: Real-time grayscale, color flow color duplex Doppler and spectral analysis are obtained with and without compression in the area of the common femoral vein, superficial femoral vein - femoral vein junction, main femoral vein (superficial femoral vein) and popliteal vein. Veins of the proximal calf are also imaged. Findings: There is normal duplex flow, color flow and compressibility of all visualized vein segments. No evidence of deep venous thrombus is present. Impression: Negative venous Doppler of right lower extremity Electronically signed by: Kaylie Connor MD (10/17/2019 3:33 PM) [facility] Exam: Right foot 3 views INDICATION: Sores on foot TECHNIQUE: Frontal, lateral and oblique views of the right foot Comparisons: None FINDINGS: Soft tissue ulceration at the heel is noted. The calcaneus has a flattened orientation with a sclerotic appearance. No acute fractures identified. Diffuse osteopenia in the remainder of the foot. Joint spaces are well-maintained. IMPRESSION: Ulceration at the heel with sclerotic appearance of the calcaneus which is nonspecific however differential considerations include chronic fracture deformity and/or osteomyelitis. Electronically signed by: Brandi Little MD (10/17/2019 4:38 PM) [facility] VTE Prophylaxis Ordered VTE Prophylaxis Devices: No VTE Pharmacological Prophylaxi: Yes Assessment/Plan Assessment/Plan IMPRESSION: diabetic foot with cellulitis Ulceration at the heel with sclerotic appearance of the calcaneus which is nonspecific however differential considerations include chronic fracture deformity and/or osteomyelitis. ANEMIA, hx fe def plan admit iv antibiotics, vanc ID CONSULT FE PANEL wound care consult LEFT ASHLEY TRACEY MD Oct 17, 2019 17:09
[2019-10-17] MEDS ORDERED: hydrALAZINE 20 MG/ML VIAL. IVP PRN (17:15)
[2019-10-17] MEDS ORDERED: ACETAMINOPHEN/CODEINE 300/30MG TABLET. PO PRN (17:15)
[2019-10-17] MEDS ORDERED: PROCHLORPERAZINE 10 MG/2 ML VIAL. IV PRN (17:15)
[2019-10-17] MEDS ORDERED: traMADol 50 MG TABLET PO PRN (17:15)
[2019-10-17] MEDS ORDERED: VANCOMYCIN PER PHARMACY MC PRN (17:15)
[2019-10-17] MEDS ORDERED: PIPERACILLIN/TAZOBACTAM 2.25 GM VIAL IV PRN (17:15)
[2019-10-17] MEDS ORDERED: DEXTROSE 50% 25 GM / 50ML DISP.SYRIN. IV PRN (17:15)
[2019-10-17] MEDS ORDERED: ENOXAPARIN 30 MG/0.3 ML SYRINGE. SQ SCH (17:15)
[2019-10-17] MEDS ORDERED: ACETAMINOPHEN 325 MG TABLET. PO PRN (17:15)
[2019-10-17] MEDS ORDERED: DOCUSATE SODIUM 100 MG CAPSULE. PO PRN (17:15)
[2019-10-17] MEDS ORDERED: ONDANSETRON PF 4 MG/2 ML VIAL. IV PRN (17:15)
[2019-10-17] MEDS ORDERED: VANCOMYCIN 1 GM VIAL. IV PRN (17:15)
[2019-10-17] MEDS ORDERED: CEPH-264 PO (17:16)
[2019-10-17] MEDS ORDERED: NON FORMULARY ITEM (Insulin Detemir (Levemir Flextouch) 20 UNITS) SQ SCH (21:00)
--- NOTE | 2019-10-18 06:48 | EKG ---
[facility] [address] [place] [address] Test Date: 2019-10-17 Test Time: 16:48:03 Pat Name: GODWIN MARCUM Department: Room: Gender: F Therapist Occupational: : 1985 Requested By: VERONIQUE SANTOS Order Number: [id number] Reading MD: Measurements Intervals [place] Rate: 119 P: 90 RI: 112 QRS: 24 QRSD: 74 T: 26 QT: 302 QTc: 431 Interpretive Statements SINUS TACHYCARDIA OTHERWISE NORMAL ECG No previous ECG available for comparison
[2019-10-18] MEDS ORDERED: INSULIN ASPART 32 UNIT SQ SCH (09:00)
== END 2019-10-17 17:10 | disposition left against medical advice (07) ==
LOC: ER 13:21
DX: E10.621 Type 1 diabetes mellitus with foot ulcer (principal); L97.519 Non-pressure chronic ulcer of other part of right foot with unspecified severity; D64.9 Anemia, unspecified; I10 Essential (primary) hypertension; E10.40 Type 1 diabetes mellitus with diabetic neuropathy, unspecified
CPT/HCPCS: 36415; 73630; 80053; 83605; 85025; 86850; 86900; 86901; 87040; 93005; 93971; 99285; J7030

== ENCOUNTER 2020-07-16 11:18 | Inpatient (IN) | payer OTHER ==
[~2020-07-16] VITALS: Ht 142.2 cm; Wt 35.0 kg
[~2020-07-16 11:18] MED LIST changes: +AMLO2.5T5 PO; +ASCO500T4 PO; +CEPH-264 PO; +DULO20CA18 PO; +FENO145T3 PO; +GABA300C18 PO; +HUMALOG SQ; +LEVO50TA PO; +LISI-334 PO; +METF500T16 PO; +METO25TA4 PO; +MULT1TAB90 PO; -PROC10VI IV; +PROC10VI20 IV; -VANC1VIA3 MC; +VANC1VIA38 MC
[2020-07-16] MEDS ORDERED: methylPREDNISolone SOD SUCC PF 125 MG/2 ML VIAL. IV ONE (12:00)
[2020-07-16] MEDS ORDERED: IPRATRPIUM/ALBUTEROL 0.5/2.5MG 3 ML NEBU. NEB ONE (12:00)
[2020-07-16 12:01] LABS: BASO # 0.1 x10^3/uL (0.0-0.2); BASO % 1 % (0-3); EOS # 0.5 x10^3/uL (0.0-0.7); EOS % 3 % (0-3); LYMPH # 2.7 x10^3/uL (1.0-4.8); LYMPH % 18 % (24-48); MEAN CORPUSCULAR HEMOGLOBIN 28 pg (25-35); MEAN CORPUSCULAR HGB CONC 32 g/dL (31-37); MEAN CORPUSCULAR VOLUME 89 fL (79-100); MONO # 0.5 x10^3/uL (0.0-1.1); MONO % 3 % (0-9); NEUT # 11.3 x10^3/uL (1.8-7.7); NEUT % 75 % (31-73); PLATELET COUNT 396 x10^3/uL (140-400); RED BLOOD COUNT 2.32 x10^6/uL (3.50-5.40); RED CELL DISTRIBUTION WIDTH 17.2 % (11.5-14.5); WHITE BLOOD COUNT 15.1 x10^3/uL (4.0-11.0)
[2020-07-16 12:04] LABS: HEMOGLOBIN 6.5 g/dL (12.0-15.5)
[2020-07-16 12:05] LABS: HEMATOCRIT 20.7 % (36.0-47.0)
[2020-07-16 12:13] LABS: CALCIUM 8.5 mg/dL (8.5-10.1); GFR 28.5; POTASSIUM 5.5 mmol/L (3.5-5.1)
[2020-07-16 12:20] LABS: ALBUMIN 2.6 g/dL (3.4-5.0); ALBUMIN/GLOBULIN RATIO 0.4 (1.0-1.7); TOTAL BILIRUBIN 0.2 mg/dL (0.2-1.0); TOTAL PROTEIN 8.8 g/dL (6.4-8.2)
[2020-07-16 12:20] LABS: BASE EXCESS ABG -13 mmol/L (-3-3); HCO3 ABG 14 mmol/L (21-28); PCO2 ABG 37 mmHg (35-46); PO2 ABG 74 mmHg (85-108); SAT O2 ABG 92 % (92-99)
[2020-07-16 12:24] LABS: FIO2 ABG 32%
--- NOTE | 2020-07-16 12:29 | EKG ---
[facility] [address] [place] [address] Test Date: 2020-07-16 Test Time: 11:58:21 Pat Name: GODWIN MARCUM Department: Room: Gender: F Oil Truck Driver: : 1985 Requested By: EPIFANIO PATEL Order Number: [id number] Reading MD: Measurements Intervals [place] Rate: 120 P: 53 [place]: 106 QRS: 9 QRSD: 70 T: 43 QT: 296 QTc: 423 Interpretive Statements SINUS TACHYCARDIA LEFT ATRIAL ABNORMALITY ABNORMAL ECG RI6.01 No previous ECG available for comparison
[2020-07-16 12:46] LABS: BILIRUBIN,URINE NEGATIVE (NEG); CLARITY,URINE CLEAR; COLOR,URINE YELLOW; NITRITE,URINE NEGATIVE (NEG); PH,URINE 5.5 (<5.0-8.0); PROTEIN,URINE >=300 mg/dL (NEG-TRACE); UROBILINOGEN,URINE 0.2 mg/dL (0.2 mg/dL)
[2020-07-16 12:58] LABS: SQUAMOUS EPITHELIAL CELL,UR FEW /LPF
[2020-07-16 12:59] LABS: AMORPHOUS SEDIMENT,UR PRESENT /HPF; GRANULAR CASTS,URINE OCCASIONAL /HPF; HYALINE CASTS, URINE FEW /HPF
[2020-07-16 13:00] LABS: BACTERIA,URINE 0 /HPF (0-FEW); RBC,URINE OCC /HPF (0-2)
[2020-07-16] MEDS ORDERED: FUROSEMIDE 40 MG/4 ML VIAL. IVP ONE ×2 (13:30→22:00)
--- NOTE | 2020-07-16 13:42 | RAD ---
CHEST AP ONLY Clinical Indication: Reason: cough, soa / Comparison: AP chest 01/25/2020. Findings: The cardiomediastinal silhouette is normal. There are bilateral mid and lower lung interstitial and alveolar opacities.. There is no pneumothorax. No pleural effusion is appreciated. No acute bone abnormality. IMPRESSION: Bilateral mid and lower lung interstitial and alveolar opacities. Considerations include pulmonary edema or typical or atypical pneumonia. Electronically signed by: Compa Bella MD (07/16/2020 1:39 PM) [id number]
[2020-07-16] MEDS ORDERED: ONDANSETRON PF 4 MG/2 ML VIAL. IV PRN (14:30)
[2020-07-16] MEDS ORDERED: DEXTROSE 50% 25 GM / 50ML DISP.SYRIN. IV PRN (14:30)
--- NOTE | 2020-07-16 14:32 | PHYS DOC ---
Past Medical History Past Medical History: Asthma, Diabetes-Type I, Hypertension, UTI Additional Past Medical Histor: Neuropathy; sepsis Past Surgical History: , Other Additional Past Surgical Histo: "eyes" Smoking Status: Never Smoker Alcohol Use: None Drug Use: None General Adult EDM: Chief Complaint: SHORTNESS OF BREATH HPI: HPI: Patient is a 35-year-old female with multiple medical problems including hypertension and diabetes who presents with a relatively acute onset of shortness of breath. She states this started sometime close to midnight last night. She states she had a very similar illness back in May. She denies any nausea or vomiting. She has not had any fever chills or sweats. She describes orthopnea. She has had what she describes as chronic pain and swelling in her lower extremities. History is obtained through a Lao light truck driver as the patient is Lao only speaking. She states she coughs when she lays down flat but she has had no production of sputum. She denies any chest tightness. [] Review of Systems: Review of Systems: Constitutional: Denies fever or chills. [] Eyes: Denies change in visual acuity. [] HENT: Denies nasal congestion or sore throat. [] Respiratory: Per HPI [] Cardiovascular: Denies chest pain or edema. [] GI: Denies abdominal pain, nausea, vomiting, bloody stools or diarrhea. [] : Denies dysuria. [] Musculoskeletal: Denies back pain or joint pain. [] Integument: Denies rash. [] Neurologic: Denies headache, focal weakness or sensory changes. [] Endocrine: Denies polyuria or polydipsia. [] Lymphatic: Denies swollen glands. [] Psychiatric: Denies depression or anxiety. [] Heart Score: HEART Score for Chest Pain: HEART Score for Chest Pain Response (Comments) Value History Slighlty/Non-Suspicious 0 ECG Nonspecific Repolarizatio 1 Age < 45 0 Risk Factors 1 or 2 Risk Factors 1 Troponin < Normal Limit 0 Total 2 Risk Factors: Risk Factors: DM, Current or recent (<one month) smoker, HTN, HLP, family history of CAD, obesity. Risk Scores: Score 0 - 3: 2.5% MACE over next 6 weeks - Discharge Home Score 4 - 6: 20.3% MACE over next 6 weeks - Admit for Clinical Observation Score 7 - 10: 72.7% MACE over next 6 weeks - Early Invasive Strategies Current Medications: Current Medications Medications (Trade) Dose Ordered Sig/Rafaela Start Time Stop Time Status Last Admin Dose Admin Albuterol/ Ipratropium (Duoneb) 6 ml 1X ONCE 07/16/20 12:00 07/16/20 12:01 DC 07/16/20 12:11 6 ML Dextrose (Dextrose 50%-Water Syringe) 12.5 gm PRN Q15MIN PRN 07/16/20 14:30 UNV Furosemide (Lasix) 40 mg 1X ONCE 07/16/20 13:30 07/16/20 13:31 DC 07/16/20 13:57 40 MG Insulin Human Lispro (HumaLOG) 0-7 UNITS TIDWMEALS 07/16/20 17:00 UNV Methylprednisolone Sodium Succinate (SOLU-Medrol 125MG VIAL) 125 mg 1X ONCE 07/16/20 12:00 07/16/20 12:01 DC 07/16/20 11:55 125 MG Ondansetron HCl (Zofran) 4 mg PRN Q8HRS PRN 07/16/20 14:30 07/17/20 14:29 UNV Allergies: Allergies: Allergies Coded Allergies Type Severity Reaction Last Updated Verified No Known Drug Allergies 03/28/17 No Physical Exam: PE: Constitutional: Well developed, well nourished, mild to moderate distress, non- toxic appearance. [] HENT: Normocephalic, atraumatic, bilateral external ears normal, oropharynx moist, no oral exudates, nose normal. [] Eyes: PERRLA, EOMI, conjunctiva normal, no discharge. [] Neck: Normal range of motion, no tenderness, supple, no stridor. [] Cardiovascular: Tachycardic no obvious murmur [] Lungs & Thorax: Scattered wheezes throughout both lungs and there is some bibasilar rales [] Abdomen: Bowel sounds normal, soft, no tenderness, no masses, no pulsatile masses. [] Skin: Warm, dry, no erythema, no rash. [] Back: No tenderness, no CVA tenderness. [] Extremities: Trace lower extremity edema equal bilaterally. [] Neurologic: Alert and oriented X 3, normal motor function, normal sensory fun ction, no focal deficits noted. [] Psychologic: Anxious. [] Current Patient Data: Labs: Laboratory Tests Test 07/16/20 11:40 07/16/20 11:46 07/16/20 12:35 07/16/20 12:44 White Blood Count 15.1 x10^3/uL (4.0-11.0) H Red Blood Count 2.32 x10^6/uL (3.50-5.40) L Hemoglobin 6.5 g/dL (12.0-15.5) *L Hematocrit 20.7 % (36.0-47.0) *L Mean Corpuscular Volume 89 fL (79-100) Mean Corpuscular Hemoglobin 28 pg (25-35) Mean Corpuscular Hemoglobin Concent 32 g/dL (31-37) Red Cell Distribution Width 17.2 % (11.5-14.5) H Platelet Count 396 x10^3/uL (140-400) Neutrophils (%) (Auto) 75 % (31-73) H Lymphocytes (%) (Auto) 18 % (24-48) L Monocytes (%) (Auto) 3 % (0-9) Eosinophils (%) (Auto) 3 % (0-3) Basophils (%) (Auto) 1 % (0-3) Neutrophils # (Auto) 11.3 x10^3/uL (1.8-7.7) H Lymphocytes # (Auto) 2.7 x10^3/uL (1.0-4.8) Monocytes # (Auto) 0.5 x10^3/uL (0.0-1.1) Eosinophils # (Auto) 0.5 x10^3/uL (0.0-0.7) Basophils # (Auto) 0.1 x10^3/uL (0.0-0.2) Sodium Level 136 mmol/L (136-145) Potassium Level 5.5 mmol/L (3.5-5.1) H Chloride Level 107 mmol/L (98-107) Carbon Dioxide Level 17 mmol/L (21-32) L Anion Gap 12 (6-14) Blood Urea Nitrogen 21 mg/dL (7-20) H Creatinine 2.0 mg/dL (0.6-1.0) H Estimated GFR (Cockcroft-Gault) 28.5 BUN/Creatinine Ratio 11 (6-20) Glucose Level 225 mg/dL (70-99) H Lactic Acid Level 1.2 mmol/L (0.4-2.0) Calcium Level 8.5 mg/dL (8.5-10.1) Total Bilirubin 0.2 mg/dL (0.2-1.0) Aspartate Amino Transferase (AST) 26 U/L (15-37) Alanine Aminotransferase (ALT) 31 U/L (14-59) Alkaline Phosphatase 366 U/L (46-116) H Troponin I Quantitative < 0.017 ng/mL (0.000-0.055) [id number]-[id number]-Type Natriuretic Peptide 5076 pg/mL (0-124) H Total Protein 8.8 g/dL (6.4-8.2) H Albumin 2.6 g/dL (3.4-5.0) L Albumin/Globulin Ratio 0.4 (1.0-1.7) L O2 Saturation 92 % (92-99) Arterial Blood pH 7.19 (7.35-7.45) *L Arterial Blood pCO2 at Patient Temp 37 mmHg (35-46) Arterial Blood pO2 at Patient Temp 74 mmHg (85-108) L Arterial Blood HCO3 14 mmol/L (21-28) L Arterial Blood Base Excess -13 mmol/L (-3-3) L FiO2 32% Urine Collection Type Unknown Urine Color Yellow Urine Clarity Clear Urine pH 5.5 (<5.0-8.0) Urine Specific [place] 1.015 (1.000-1.030) Urine Protein >=300 mg/dL (NEG-TRACE) Urine Glucose (UA) 500 mg/dL (NEG) Urine Ketones (Stick) Negative mg/dL (NEG) Urine Blood Trace (NEG) Urine Nitrite Negative (NEG) Urine Bilirubin Negative (NEG) Urine Urobilinogen Dipstick 0.2 mg/dL (0.2 mg/dL) Urine Leukocyte Esterase Negative (NEG) Urine RBC Occ /HPF (0-2) Urine WBC 1-4 /HPF (0-4) Urine Squamous Epithelial Cells Few /LPF Urine Amorphous Sediment Present /HPF Urine Bacteria 0 /HPF (0-FEW) Urine Hyaline Casts Few /HPF Urine Granular Casts Occasional /HPF Urine Mucus Slight /LPF POC Urine HCG, Qualitative Hcg negative (Negative) Laboratory Tests 07/16/20 11:40 Laboratory Tests 07/16/20 11:40 Vital Signs: Vital Signs Date Time Temp Pulse Resp B/P (MAP) Pulse Ox O2 Delivery O2 Flow Rate FiO2 07/16/20 12:11 98 Nasal Cannula 3.0 07/16/20 11:30 98.5 120 36 161/79 (106) 98.5 EKG: EKG: EKG: Sinus tachycardia rate of [address]-T changes [] Radiology/Procedures: Radiology/Procedures: []REASON: cough, soa PROCEDURE: CHEST AP ONLY CHEST AP ONLY Clinical Indication: Reason: cough, soa / Comparison: AP chest 01/25/2020. Findings: The cardiomediastinal silhouette is normal. There are bilateral mid and lower lung interstitial and alveolar opacities.. There is no pneumothorax. No pleural effusion is appreciated. No acute bone abnormality. IMPRESSION: Bilateral mid and lower lung interstitial and alveolar opacities. Considerations include pulmonary edema or typical or atypical pneumonia. Course & Med Decision Making: Course & Med Decision Making Pertinent Labs and Imaging studies reviewed. (See chart for details) [ED course: Evaluation reveals a 35-year-old acute on chronically ill Lao only speaking female. On arrival here her oxygenation was in the 80s. She was placed on a couple liters of oxygen which improved her oxygenation into the upper 90s. On initial exam she had scattered wheezes throughout both lung she was given [id number] DuoNeb's and 125 of Solu-Medrol. After looking at her BNP and her chest x-ray which looks more like pulmonary edema 40 of Lasix was given. Also, patient's blood count was low again. This was similar back in May of this year and she received blood at that time. I typed and crossed her for 2 units and will begin transfusion as soon as it blood becomes available. She also has a metabolic acidosis which is likely related to her diabetes. I suspect she will get some correction of this with diuresis as well as blood transfusion. CRITICAL CARE: Time spent was 35 minutes. This includes medical management, evaluation, reevaluation, discussion with consultants and family. Critical Care does NOT include time spent on separately billed procedures.] Dragon Disclaimer: Dragon Disclaimer: This electronic medical record was generated, in whole or in part, using a voice recognition dictation system. Departure Departure Impression: Primary Impression: Congestive heart failure Qualified Codes: I50.9 - Heart failure, unspecified Additional Impressions: Symptomatic anemia Metabolic acidosis Disposition: ADMITTED INPATIENT Admitting Physician: CHIKIS Condition: GUARDED Referrals: SHUKRI DOWLING MD (PCP) Justicifation of Admission Dx: Justifications for Admission: Justification of Admission Dx: Yes Respiratory Failure: Severe Resp Distress EPIFANIO PATEL DO Jul 16, 2020 14:32
[2020-07-16 17:26] VITALS: BP 139/67
--- NOTE | 2020-07-16 17:41 | NUR ---
Patient Helena Lenz 35 y/o female admitted due to SOA, CHF and anemia arrived at the unit via gurney at 1520. She's awake, alert, oriented x4, denies pain on oxygen at 2 lpm, VSS oxygen sat at 99-100%. Patient belongings checked, was oriented to the unit, call light placed within reach. She's Sami speaking, purchasing coordinator phone used for communication.
[2020-07-16] MEDS: INSULIN LISPRO 300 UNITS/3 ML VIAL. SQ SCH (17:49)
[2020-07-16 17:50] VITALS: BP 150/71
[2020-07-16] MEDS ORDERED: LISI40TA2 PO (18:06)
[2020-07-16] MEDS ORDERED: DULO40CA2 PO (18:06)
[2020-07-16] MEDS ORDERED: AMLO5TAB10 PO (18:06)
[2020-07-16 18:50] VITALS: BP 183/86
--- NOTE | 2020-07-16 19:21 | PDOC1 ---
History and Physical Date of Service: DOS: DATE: 07/16/20 TIME: 19:16 Chief Complaint: Problems: (1) Nausea & vomiting (2) Fever (3) Sepsis (4) Abscess or cellulitis of chin (5) Tachycardia (6) UTI (urinary tract infection) (7) Anemia (8) Encephalopathy acute (9) Diabetic foot ulcer (10) Acute hyperkalemia (11) Low hemoglobin (12) BRANDI (acute kidney injury) (13) Congestive heart failure (14) Metabolic acidosis (15) Symptomatic anemia Chief Complain: Shortness of breath History of Present Illness: HPI: This is a pleasant 35-year-old female from [facility] Basically she has been developing shortness of breath This started last night It got worse with movement better with sitting still She had a similar episode in May of this year She has associated cough [] While in the ER we did a chest x-ray and it is showing some vascular congestion She also has an elevated BNP She appears to be in heart failure We are also concerned she could possibly have COVID-19 We are going to meet the patient and diurese her and consult cardiology Past Medical/Surgical History: PMH/PSH: Past Medical History: Asthma, Diabetes-Type I, Hypertension, UTI Additional Past Medical Histor: Neuropathy; sepsis Past Surgical History: , Other Additional Past Surgical Histo: "eyes" Smoking Status: Never Smoker Alcohol Use: None Drug Use: None Allergies: Allergies: Coded Allergies: No Known Drug Allergies (Unverified , 03/28/17) Family History: Family History: Hypertension diabetes Social History: Social History: She does not drink smoke or take drugs Current Medications: Current Medications Current Medications Methylprednisolone Sodium Succinate (SOLU-Medrol 125MG VIAL) 125 mg 1X ONCE IV Last administered on 07/16/20at 11:55; Start 07/16/20 at 12:00; Stop 07/16/20 at 12:01; Status DC Albuterol/ Ipratropium (Duoneb) 6 ml 1X ONCE NEB Last administered on 07/16/20at 12:11; Start 07/16/20 at 12:00; Stop 07/16/20 at 12:01; Status DC Furosemide (Lasix) 40 mg 1X ONCE IVP Last administered on 07/16/20at 13:57; Start 07/16/20 at 13:30; Stop 07/16/20 at 13:31; Status DC Ondansetron HCl (Zofran) 4 mg PRN Q8HRS PRN IV NAUSEA/VOMITING; Start 07/16/20 at 14:30; Stop 07/17/20 at 14:29 Insulin Human Lispro (HumaLOG) 0-7 UNITS TIDWMEALS SQ Last administered on 07/16/20at 17:49; Start 07/16/20 at 17:00 Dextrose (Dextrose 50%-Water Syringe) 12.5 gm PRN Q15MIN PRN IV SEE COMMENTS; Start 07/16/20 at 14:30 Active Scripts Active Thera-M Tablet (Multivits,Ca,Minerals/Iron/Fa) 1 Each Tablet 1 Tab PO DAILY 30 Days Synthroid (Levothyroxine Sodium) 50 Mcg Tablet 50 Mcg PO DAILY06 30 Days Metoprolol Tartrate 25 Mg Tablet 25 Mg PO BID 30 Days Levemir Flextouch (Insulin Detemir) 100 Unit/1 Ml Insuln.pen 20 Units SQ QHS Colace (Docusate Sodium) 100 Mg Capsule 100 Mg PO PRN DAILY PRN Tylenol (Acetaminophen) 325 Mg Tablet 650 Mg PO PRN Q6HRS PRN Reported Duloxetine HCl 40 Mg Capsule.dr 1 Cap PO DAILY 30 Days Lisinopril 40 Mg Tablet 40 Mg PO DAILY Amlodipine Besylate 5 Mg Tablet 5 Mg PO DAILY Gabapentin (Gabapentin) 300 Mg Capsule 3 Cap PO Q12HR [Humalog 75-25] 20 Units SQ BIDWMEALS ROS: Review of Systems Review of System REVIEW OF SYSTEMS: GENERAL: Denies weakness SKIN: No bruising, hair changes or rashes. EYES: No blurred, double or loss of vision. NOSE AND THROAT: No history of nosebleeds, hoarseness or sore throat. HEART: No history of palpitations, chest pain or shortness of breath on exertion. LUNGS: Complains of shortness of breath GASTROINTESTINAL: Denies changes in appetite, nausea, vomiting, diarrhea or constipation. GENITOURINARY: No history of frequency, urgency, hesitancy or nocturia. NEUROLOGIC: Denies history of numbness, tingling, or tremor. PSYCHIATRIC: No history of panic, anxiety or depression. ENDOCRINE: No history of heat or cold intolerance, polyuria or polydipsia. EXTREMITIES: Denies joint pain, pain on walking or stiffness. Physical Exam: Vital Signs: Vital Signs Date Time Temp Pulse Resp B/P (MAP) Pulse Ox O2 Delivery O2 Flow Rate FiO2 07/16/20 18:50 97.8 116 20 183/86 97.8 07/16/20 15:45 Nasal Cannula 2.0 07/16/20 14:50 100 Physcial Exam: GEN: No apparent distress. Alert and oriented HEENT: Normal cephalic, atraumatic, external auditory canals are patent EYES: Extraocular muscles are intact, pupil are equally round and reactive to light and accommodation MUSCULOSKELETAL: Well developed , well nourished, good range of motion ENDOCRINE: No thyromegaly was palpated LYMPHATICS: No cervical chain or axillary nodes were noted HEMATOPOIETIC: No bruising NECK: Supple, no JVD, no thyromegaly was noted LUNGS: Bibasilar crackles HEART: RRR, S!, S2 present. Peripheral pulses intact, no obvious murmurs noted ABDOMEN: Soft, nontender. Positive bowel sounds, no organomegaly, normal bowel sounds EXTREMITIES: Without clubbing, cyanosis, or edema. Pedal pulses intact. Negative Homans sign NEUROLOGIC: Normal speech and tone. A&O x 3, moves all extremities, no obvious focal deficits PSYCHIATRIC: Normal affect, normal mood. Stable SKIN: No ulcerations or rashes, good skin turgor, no jaundice VASCULAR: Good capillary refill, neurovascular bundle appears to be intact Labs: Labs: Laboratory Tests Test 07/16/20 11:40 07/16/20 11:46 07/16/20 12:35 07/16/20 12:44 White Blood Count 15.1 x10^3/uL (4.0-11.0) Red Blood Count 2.32 x10^6/uL (3.50-5.40) Hemoglobin 6.5 g/dL (12.0-15.5) Hematocrit 20.7 % (36.0-47.0) Mean Corpuscular Volume 89 fL (79-100) Mean Corpuscular Hemoglobin 28 pg (25-35) Mean Corpuscular Hemoglobin Concent 32 g/dL (31-37) Red Cell Distribution Width 17.2 % (11.5-14.5) Platelet Count 396 x10^3/uL (140-400) Neutrophils (%) (Auto) 75 % (31-73) Lymphocytes (%) (Auto) 18 % (24-48) Monocytes (%) (Auto) 3 % (0-9) Eosinophils (%) (Auto) 3 % (0-3) Basophils (%) (Auto) 1 % (0-3) Neutrophils # (Auto) 11.3 x10^3/uL (1.8-7.7) Lymphocytes # (Auto) 2.7 x10^3/uL (1.0-4.8) Monocytes # (Auto) 0.5 x10^3/uL (0.0-1.1) Eosinophils # (Auto) 0.5 x10^3/uL (0.0-0.7) Basophils # (Auto) 0.1 x10^3/uL (0.0-0.2) Sodium Level 136 mmol/L (136-145) Potassium Level 5.5 mmol/L (3.5-5.1) Chloride Level 107 mmol/L (98-107) Carbon Dioxide Level 17 mmol/L (21-32) Anion Gap 12 (6-14) Blood Urea Nitrogen 21 mg/dL (7-20) Creatinine 2.0 mg/dL (0.6-1.0) Estimated GFR (Cockcroft-Gault) 28.5 BUN/Creatinine Ratio 11 (6-20) Glucose Level 225 mg/dL (70-99) Lactic Acid Level 1.2 mmol/L (0.4-2.0) Calcium Level 8.5 mg/dL (8.5-10.1) Total Bilirubin 0.2 mg/dL (0.2-1.0) Aspartate Amino Transf (AST/SGOT) 26 U/L (15-37) Alanine Aminotransferase (ALT/SGPT) 31 U/L (14-59) Alkaline Phosphatase 366 U/L (46-116) Troponin I Quantitative < 0.017 ng/mL (0.000-0.055) IJ-Jsa-T-Type Natriuretic Peptide 5076 pg/mL (0-124) Total Protein 8.8 g/dL (6.4-8.2) Albumin 2.6 g/dL (3.4-5.0) Albumin/Globulin Ratio 0.4 (1.0-1.7) O2 Saturation 92 % (92-99) Arterial Blood pH 7.19 (7.35-7.45) Arterial Blood pCO2 at Patient Temp 37 mmHg (35-46) Arterial Blood pO2 at Patient Temp 74 mmHg (85-108) Arterial Blood HCO3 14 mmol/L (21-28) Arterial Blood Base Excess -13 mmol/L (-3-3) FiO2 32% Urine Collection Type Unknown Urine Color Yellow Urine Clarity Clear Urine pH 5.5 (<5.0-8.0) Urine Specific [place] 1.015 (1.000-1.030) Urine Protein >=300 mg/dL (NEG-TRACE) Urine Glucose (UA) 500 mg/dL (NEG) Urine Ketones (Stick) Negative mg/dL (NEG) Urine Blood Trace (NEG) Urine Nitrite Negative (NEG) Urine Bilirubin Negative (NEG) Urine Urobilinogen Dipstick 0.2 mg/dL (0.2 mg/dL) Urine Leukocyte Esterase Negative (NEG) Urine RBC Occ /HPF (0-2) Urine WBC 1-4 /HPF (0-4) Urine Squamous Epithelial Cells Few /LPF Urine Amorphous Sediment Present /HPF Urine Bacteria 0 /HPF (0-FEW) Urine Hyaline Casts Few /HPF Urine Granular Casts Occasional /HPF Urine Mucus Slight /LPF Bedside Urine HCG, Qualitative Hcg negative (Negative) Test 07/16/20 16:35 07/16/20 16:55 Glucose (Fingerstick) 275 mg/dL (70-99) Lactic Acid Level 1.7 mmol/L (0.4-2.0) Troponin I Quantitative < 0.017 ng/mL (0.000-0.055) Laboratory Tests Test 07/16/20 11:40 07/16/20 11:46 07/16/20 12:35 07/16/20 12:44 White Blood Count 15.1 x10^3/uL (4.0-11.0) Red Blood Count 2.32 x10^6/uL (3.50-5.40) Hemoglobin 6.5 g/dL (12.0-15.5) Hematocrit 20.7 % (36.0-47.0) Mean Corpuscular Volume 89 fL (79-100) Mean Corpuscular Hemoglobin 28 pg (25-35) Mean Corpuscular Hemoglobin Concent 32 g/dL (31-37) Red Cell Distribution Width 17.2 % (11.5-14.5) Platelet Count 396 x10^3/uL (140-400) Neutrophils (%) (Auto) 75 % (31-73) Lymphocytes (%) (Auto) 18 % (24-48) Monocytes (%) (Auto) 3 % (0-9) Eosinophils (%) (Auto) 3 % (0-3) Basophils (%) (Auto) 1 % (0-3) Neutrophils # (Auto) 11.3 x10^3/uL (1.8-7.7) Lymphocytes # (Auto) 2.7 x10^3/uL (1.0-4.8) Monocytes # (Auto) 0.5 x10^3/uL (0.0-1.1) Eosinophils # (Auto) 0.5 x10^3/uL (0.0-0.7) Basophils # (Auto) 0.1 x10^3/uL (0.0-0.2) Sodium Level 136 mmol/L (136-145) Potassium Level 5.5 mmol/L (3.5-5.1) Chloride Level 107 mmol/L (98-107) Carbon Dioxide Level 17 mmol/L (21-32) Anion Gap 12 (6-14) Blood Urea Nitrogen 21 mg/dL (7-20) Creatinine 2.0 mg/dL (0.6-1.0) Estimated GFR (Cockcroft-Gault) 28.5 BUN/Creatinine Ratio 11 (6-20) Glucose Level 225 mg/dL (70-99) Lactic Acid Level 1.2 mmol/L (0.4-2.0) Calcium Level 8.5 mg/dL (8.5-10.1) Total Bilirubin 0.2 mg/dL (0.2-1.0) Aspartate Amino Transf (AST/SGOT) 26 U/L (15-37) Alanine Aminotransferase (ALT/SGPT) 31 U/L (14-59) Alkaline Phosphatase 366 U/L (46-116) Troponin I Quantitative < 0.017 ng/mL (0.000-0.055) GE-Wwg-E-Type Natriuretic Peptide 5076 pg/mL (0-124) Total Protein 8.8 g/dL (6.4-8.2) Albumin 2.6 g/dL (3.4-5.0) Albumin/Globulin Ratio 0.4 (1.0-1.7) O2 Saturation 92 % (92-99) Arterial Blood pH 7.19 (7.35-7.45) Arterial Blood pCO2 at Patient Temp 37 mmHg (35-46) Arterial Blood pO2 at Patient Temp 74 mmHg (85-108) Arterial Blood HCO3 14 mmol/L (21-28) Arterial Blood Base Excess -13 mmol/L (-3-3) FiO2 32% Urine Collection Type Unknown Urine Color Yellow Urine Clarity Clear Urine pH 5.5 (<5.0-8.0) Urine Specific [place] 1.015 (1.000-1.030) Urine Protein >=300 mg/dL (NEG-TRACE) Urine Glucose (UA) 500 mg/dL (NEG) Urine Ketones (Stick) Negative mg/dL (NEG) Urine Blood Trace (NEG) Urine Nitrite Negative (NEG) Urine Bilirubin Negative (NEG) Urine Urobilinogen Dipstick 0.2 mg/dL (0.2 mg/dL) Urine Leukocyte Esterase Negative (NEG) Urine RBC Occ /HPF (0-2) Urine WBC 1-4 /HPF (0-4) Urine Squamous Epithelial Cells Few /LPF Urine Amorphous Sediment Present /HPF Urine Bacteria 0 /HPF (0-FEW) Urine Hyaline Casts Few /HPF Urine Granular Casts Occasional /HPF Urine Mucus Slight /LPF Bedside Urine HCG, Qualitative Hcg negative (Negative) Test 07/16/20 16:35 07/16/20 16:55 Glucose (Fingerstick) 275 mg/dL (70-99) Lactic Acid Level 1.7 mmol/L (0.4-2.0) Troponin I Quantitative < 0.017 ng/mL (0.000-0.055) Images: Images Chest x-ray shows the following; bilateral mid and lower lung interstitial and alveolar opacities. Considerations include pulmonary edema or typical or atypical pneumonia. Assessment/Plan Assessment/Plan Respiratory failure Acute on chronic systolic and diastolic heart failure Possible atypical pulmonary infection Multiple comorbidities Plan Respiratory isolation Consult ID Consult pulmonary Consult cardiology IV Lasix Beta agonist She got a dose of Solu-Medrol in the ER DVT prophylaxis Full code Home meds Long-term prognosis Justicifation of Admission Dx: Justifications for Admission: Justification of Admission Dx: Yes Respiratory Failure: Severe Resp Distress TAMIKO ELAM III DO Jul 16, 2020 19:21
[2020-07-16 20:00] VITALS: BP 195/86
[2020-07-16 22:27] VITALS: BP 171/81
[2020-07-16] MEDS ORDERED: cloNIDine HCL 0.1 MG TABLET PO PRN (22:45)
[2020-07-16 23:12] VITALS: BP 177/83
[2020-07-17] VITALS (7 sets, daily range): BP systolic 156–188; BP diastolic 77–92
[2020-07-17 06:06] LABS: BASO % 0 % (0-3); EOS % 0 % (0-3); HEMATOCRIT 32.3 % (36.0-47.0); HEMOGLOBIN 10.6 g/dL (12.0-15.5); LYMPH # 0.7 x10^3/uL (1.0-4.8); LYMPH % 4 % (24-48); MEAN CORPUSCULAR HEMOGLOBIN 30 pg (25-35); MEAN CORPUSCULAR HGB CONC 33 g/dL (31-37); MEAN CORPUSCULAR VOLUME 90 fL (79-100); MONO # 0.2 x10^3/uL (0.0-1.1); MONO % 1 % (0-9); NEUT # 18.6 x10^3/uL (1.8-7.7); NEUT % 95 % (31-73); PLATELET COUNT 313 x10^3/uL (140-400); RED BLOOD COUNT 3.58 x10^6/uL (3.50-5.40); RED CELL DISTRIBUTION WIDTH 14.9 % (11.5-14.5); WHITE BLOOD COUNT 19.6 x10^3/uL (4.0-11.0)
[2020-07-17 06:41] LABS: ALBUMIN 2.4 g/dL (3.4-5.0); ALBUMIN/GLOBULIN RATIO 0.4 (1.0-1.7); CALCIUM 8.4 mg/dL (8.5-10.1); CREATININE 2.1 mg/dL (0.6-1.0); TOTAL BILIRUBIN 0.3 mg/dL (0.2-1.0); TOTAL PROTEIN 8.3 g/dL (6.4-8.2)
[2020-07-17 06:45] LABS: POTASSIUM 6.8 mmol/L (3.5-5.1)
[2020-07-17] MEDS ORDERED: SODIUM POLYSTYRENE SULFON/SORB 15 GM/60 ML ORAL.SUSP. PO ONE (07:45)
[2020-07-17] MEDS: INSULIN LISPRO 300 UNITS/3 ML VIAL. SQ SCH ×3 (08:00→17:00)
[2020-07-17] MEDS ORDERED: INSULIN REGULAR 100 UNIT/ML 3ML VIAL. IV ONE ×3 (09:00)
[2020-07-17] MEDS ORDERED: CALCIUM GLUCONATE 1,000 MG/10 ML VIAL. IVP ONE (09:00)
--- NOTE | 2020-07-17 09:05 | RAD ---
AP chest. HISTORY: Increased shortness of breath AP view was taken of the chest. There are bilateral infiltrates with little change compared to the study from one day ago. Heart is within normal limits in size. There is no definite effusion. IMPRESSION: 1. Bilateral infiltrates without change. Electronically signed by: Hector Chen MD (07/17/2020 9:02 AM) [id number]
--- NOTE | 2020-07-17 09:27 | NUR ---
pt very short of breath. O2 sat 100% on 2L. Spoke to Dr Anaya. Received new orders. Spoke to Dr Franklin. Received new orders. Will continue to monitor pt.
--- NOTE | 2020-07-17 09:54 | RAD ---
EXAM: Renal sonogram. HISTORY: Abnormal renal function. TECHNIQUE: Sonographic imaging of the kidneys and bladder was performed. COMPARISON: None. FINDINGS: The kidneys are normal in size. No solid or cystic renal lesion is seen. There is no hydronephrosis. The urinary bladder is distended. IMPRESSION: 1. Sonographically unremarkable kidneys. 2. Distended urinary bladder. Electronically signed by: Laurence Carreon MD (07/17/2020 9:51 AM) [id number]
[2020-07-17] MEDS ORDERED: AZITHROMYCIN 250 MG TABLET. PO SCH (10:15)
[2020-07-17] MEDS ORDERED: cefTRIAXone IV Push 2 GM VIAL. IVP SCH (10:15)
--- NOTE | 2020-07-17 10:40 | PDOC ---
Infectious Disease Note Vital Sign Vital Signs Vital Signs Date Time Temp Pulse Resp B/P (MAP) Pulse Ox O2 Delivery O2 Flow Rate FiO2 07/17/20 07:10 96.6 109 22 174/86 (115) 100 Nasal Cannula 2.0 96.6 Labs Lab Laboratory Tests Test 07/16/20 11:40 07/16/20 11:46 07/16/20 12:35 07/16/20 12:44 White Blood Count 15.1 x10^3/uL (4.0-11.0) Red Blood Count 2.32 x10^6/uL (3.50-5.40) Hemoglobin 6.5 g/dL (12.0-15.5) Hematocrit 20.7 % (36.0-47.0) Mean Corpuscular Volume 89 fL (79-100) Mean Corpuscular Hemoglobin 28 pg (25-35) Mean Corpuscular Hemoglobin Concent 32 g/dL (31-37) Red Cell Distribution Width 17.2 % (11.5-14.5) Platelet Count 396 x10^3/uL (140-400) Neutrophils (%) (Auto) 75 % (31-73) Lymphocytes (%) (Auto) 18 % (24-48) Monocytes (%) (Auto) 3 % (0-9) Eosinophils (%) (Auto) 3 % (0-3) Basophils (%) (Auto) 1 % (0-3) Neutrophils # (Auto) 11.3 x10^3/uL (1.8-7.7) Lymphocytes # (Auto) 2.7 x10^3/uL (1.0-4.8) Monocytes # (Auto) 0.5 x10^3/uL (0.0-1.1) Eosinophils # (Auto) 0.5 x10^3/uL (0.0-0.7) Basophils # (Auto) 0.1 x10^3/uL (0.0-0.2) Sodium Level 136 mmol/L (136-145) Potassium Level 5.5 mmol/L (3.5-5.1) Chloride Level 107 mmol/L (98-107) Carbon Dioxide Level 17 mmol/L (21-32) Anion Gap 12 (6-14) Blood Urea Nitrogen 21 mg/dL (7-20) Creatinine 2.0 mg/dL (0.6-1.0) Estimated GFR (Cockcroft-Gault) 28.5 BUN/Creatinine Ratio 11 (6-20) Glucose Level 225 mg/dL (70-99) Lactic Acid Level 1.2 mmol/L (0.4-2.0) Calcium Level 8.5 mg/dL (8.5-10.1) Total Bilirubin 0.2 mg/dL (0.2-1.0) Aspartate Amino Transf (AST/SGOT) 26 U/L (15-37) Alanine Aminotransferase (ALT/SGPT) 31 U/L (14-59) Alkaline Phosphatase 366 U/L (46-116) Troponin I Quantitative < 0.017 ng/mL (0.000-0.055) ES-Vlv-E-Type Natriuretic Peptide 5076 pg/mL (0-124) Total Protein 8.8 g/dL (6.4-8.2) Albumin 2.6 g/dL (3.4-5.0) Albumin/Globulin Ratio 0.4 (1.0-1.7) O2 Saturation 92 % (92-99) Arterial Blood pH 7.19 (7.35-7.45) Arterial Blood pCO2 at Patient Temp 37 mmHg (35-46) Arterial Blood pO2 at Patient Temp 74 mmHg (85-108) Arterial Blood HCO3 14 mmol/L (21-28) Arterial Blood Base Excess -13 mmol/L (-3-3) FiO2 32% Urine Collection Type Unknown Urine Color Yellow Urine Clarity Clear Urine pH 5.5 (<5.0-8.0) Urine Specific [place] 1.015 (1.000-1.030) Urine Protein >=300 mg/dL (NEG-TRACE) Urine Glucose (UA) 500 mg/dL (NEG) Urine Ketones (Stick) Negative mg/dL (NEG) Urine Blood Trace (NEG) Urine Nitrite Negative (NEG) Urine Bilirubin Negative (NEG) Urine Urobilinogen Dipstick 0.2 mg/dL (0.2 mg/dL) Urine Leukocyte Esterase Negative (NEG) Urine RBC Occ /HPF (0-2) Urine WBC 1-4 /HPF (0-4) Urine Squamous Epithelial Cells Few /LPF Urine Amorphous Sediment Present /HPF Urine Bacteria 0 /HPF (0-FEW) Urine Hyaline Casts Few /HPF Urine Granular Casts Occasional /HPF Urine Mucus Slight /LPF Bedside Urine HCG, Qualitative Hcg negative (Negative) Test 07/16/20 16:35 07/16/20 16:55 07/16/20 20:02 07/17/20 04:45 Glucose (Fingerstick) 275 mg/dL (70-99) Lactic Acid Level 1.7 mmol/L (0.4-2.0) Troponin I Quantitative < 0.017 ng/mL (0.000-0.055) 0.038 ng/mL (0.000-0.055) White Blood Count 19.6 x10^3/uL (4.0-11.0) Red Blood Count 3.58 x10^6/uL (3.50-5.40) Hemoglobin 10.6 g/dL (12.0-15.5) Hematocrit 32.3 % (36.0-47.0) Mean Corpuscular Volume 90 fL (79-100) Mean Corpuscular Hemoglobin 30 pg (25-35) Mean Corpuscular Hemoglobin Concent 33 g/dL (31-37) Red Cell Distribution Width 14.9 % (11.5-14.5) Platelet Count 313 x10^3/uL (140-400) Neutrophils (%) (Auto) 95 % (31-73) Lymphocytes (%) (Auto) 4 % (24-48) Monocytes (%) (Auto) 1 % (0-9) Eosinophils (%) (Auto) 0 % (0-3) Basophils (%) (Auto) 0 % (0-3) Neutrophils # (Auto) 18.6 x10^3/uL (1.8-7.7) Lymphocytes # (Auto) 0.7 x10^3/uL (1.0-4.8) Monocytes # (Auto) 0.2 x10^3/uL (0.0-1.1) Eosinophils # (Auto) 0.0 x10^3/uL (0.0-0.7) Basophils # (Auto) 0.0 x10^3/uL (0.0-0.2) Sodium Level 136 mmol/L (136-145) Potassium Level 6.8 mmol/L (3.5-5.1) Chloride Level 106 mmol/L (98-107) Carbon Dioxide Level 17 mmol/L (21-32) Anion Gap 13 (6-14) Blood Urea Nitrogen 28 mg/dL (7-20) Creatinine 2.1 mg/dL (0.6-1.0) Estimated GFR (Cockcroft-Gault) 27.0 BUN/Creatinine Ratio 13 (6-20) Glucose Level 351 mg/dL (70-99) Calcium Level 8.4 mg/dL (8.5-10.1) Total Bilirubin 0.3 mg/dL (0.2-1.0) Aspartate Amino Transf (AST/SGOT) 19 U/L (15-37) Alanine Aminotransferase (ALT/SGPT) 21 U/L (14-59) Alkaline Phosphatase 327 U/L (46-116) Total Protein 8.3 g/dL (6.4-8.2) Albumin 2.4 g/dL (3.4-5.0) Albumin/Globulin Ratio 0.4 (1.0-1.7) Test 07/17/20 07:37 Glucose (Fingerstick) 247 mg/dL (70-99) Objective Assessment Leukocytosis - now S/p PRBCs and a dose of solumedrol Anemia - S/p PRBCs BRANDI B infiltrates on 2 L 02 HTN DM Distended bladder but urinated Hyperkalemia Plan Plan of Care F/u labs cults/COVID F/u ECHO Dose Rocephin/Azithromycin Anemia per primary Await Pulm eval Thank you # [id number] JORGE LUIS GONSALEZ MD Jul 17, 2020 10:40
[2020-07-17] MEDS ORDERED: DOXYCYCLINE HYCLATE 100 MG TABLET PO SCH (10:45)
--- NOTE | 2020-07-17 10:50 | NUR ---
BG 54 . Pt awake and alert. 2 cups of orange juice given. Will recheck blood sugar. Pt planning to eat food that was delivered by family.
--- NOTE | 2020-07-17 12:26 | CONS ---
DATE OF CONSULTATION: 07/17/2020 PULMONARY CONSULTATION ATTENDING PHYSICIAN: Marie Barbour III, DO REASON FOR CONSULTATION: Dyspnea and hypoxia. HISTORY OF PRESENT ILLNESS: The patient is a 35-year-old female from [facility]. She has a history of hypertension, diabetes, and possible CKD. She came in to the hospital with increased shortness of breath in the last 24 hours. She has a cough, which has been nonproductive. No nausea, no vomiting, no diarrhea, no fever, no chills. [place] has been in the [place]. Denies any TB exposure. She said she does not have any hemoptysis and never had any PPD. Her chest x-ray upon arrival showed diffuse bilateral interstitial infiltrates consistent with CHF. She did receive one dose of Lasix and there is mild improvement in her infiltrates. I have been asked to see her for further evaluation. She is requiring 2 liters of oxygen. Echo has been ordered. PAST MEDICAL HISTORY: History of asthma, diabetes, hypertension, UTI, neuropathy, and sepsis. PAST SURGICAL HISTORY: . ALLERGIES: None. MEDICATIONS: Were reviewed as listed in the MRAD, including antibiotics. REVIEW OF SYSTEMS: Ten-point system obtained. Pertinent positives are discussed in my history of present illness; otherwise noncontributory. All systems that were negative were reviewed as well. SOCIAL HISTORY: Denies tobacco history. She is from [facility]. She has been in the [place] for 7 [place]. Denies TB exposures. Never had PPD. PHYSICAL EXAMINATION: VITAL SIGNS: Reviewed. She is afebrile. Blood pressure on the high side 174/86, pulse ox 100% on 2 liters. NECK: Supple. LUNGS: With diminished breath sounds. CARDIOVASCULAR: With a regular rate. ABDOMEN: Soft. EXTREMITIES: With trace pitting edema. LABORATORY DATA: Reviewed. Hemoglobin on admission was 6.5, now post-transfusion 10.6, white cell count 19.6 and platelets are 313. BUN 20 and creatinine of 2.1. Potassium was 6.8 this morning. ABGs with a pH of 7.19, pCO2 of 37 and a pO2 of 74 on 32% FiO2. IMPRESSION: 1. Acute hypoxic respiratory failure secondary to diffuse interstitial infiltrates. 2. Diffuse interstitial infiltrates, which have shown mild improvement per my review. Likely related to congestive heart failure, could be diastolic heart failure. The other differential diagnosis would include pulmonary vasculitis, especially in the setting of anemia. Clinically less likely any chronic infectious disease, such as tuberculosis. She has no fever. 3. Chronic kidney disease. 4. Metabolic acidosis, related to chronic kidney disease. RECOMMENDATIONS: 1. Continue present oxygen. 2. Lasix p.r.n. with close monitoring of the renal function. 3. Management of hyperkalemia per Renal. 4. Continue present antibiotics. 5. Low suspicion for COVID. Once it is ruled out, then we will do a noncontrast CT chest. 6. Obtain echocardiogram. 7. Wean FiO2 as tolerated to keep saturation 94 and above. 8. Discussed with RN. We will follow along with you. ELIESER PETER MD DR: GATO/france JOB#: [id number] / [id number]
--- NOTE | 2020-07-17 12:28 | PDOC2 ---
MINDY BARRERA [employer]PER[employer]OR [employer] 07/17/20 1228: CARDIAC CONSULT DATE OF CONSULT Date of Consult DATE: 07/17/20 TIME: 12:20 REASON FOR CONSULT Reason for Consult: CHF REFERRING PHYSICIAN Referring Physician: Dr. Jenkins HISTORY OF PRESENT ILLNESS HISTORY OF PRESENT ILLNESS This is a 35 yo female who presented secondary to 2-day history of shortness of breath. No reports of chest pain, palpitations, dizziness, or diaphoresis. Has had some LE edema. Report cough, but no fevers. CXR upon arrival with diffuse bilateral interstitial infiltrates. Breathing improved s/p IV Lasix therapy. PAST MEDICAL HISTORY Pulmonary: Asthma CENTRAL NERVOUS SYSTEM: Periperal neuropathy GI: GERD Heme/Onc: Anemia NOS Psych: Anxiety, Depression Renal/: Chronic renal insuff Endocrine: Diabetes, Hypothyroidism PAST SURGICAL HISTORY Past Surgical History: No pertinent history FAMILY HISTORY Family History: Other (noncontributory ) SOCIAL HISTORY Smoke: No ALCOHOL: none Drugs: None Lives: with Family CURRENT MEDICATIONS CURRENT MEDICATIONS Current Medications Medications (Trade) Dose Ordered Sig/Rafaela Route PRN Reason Start Time Stop Time Status Last Admin Dose Admin Furosemide (Lasix) 40 mg 1X ONCE IVP 07/16/20 13:30 07/16/20 13:31 DC 07/16/20 13:57 Insulin Human Lispro (HumaLOG) 0-7 UNITS TIDWMEALS SQ 07/16/20 17:00 07/16/20 17:49 Furosemide (Lasix) 40 mg 1X ONCE IVP 07/16/20 22:00 07/16/20 22:01 DC 07/16/20 22:15 Clonidine HCl (Catapres) 0.1 mg PRN Q4HRS PRN PO HYPERTENSION 07/16/20 22:45 07/17/20 01:11 Sodium Polystyrene Sulfonate (Kayexalate) 15 gm 1X ONCE PO 07/17/20 07:45 07/17/20 07:46 DC 07/17/20 08:49 Calcium Gluconate (Calcium Gluconate) 1,000 mg 1X ONCE IVP 07/17/20 09:00 07/17/20 09:01 DC 07/17/20 08:54 Insulin Human Regular (HumuLIN R VIAL) 10 unit 1X ONCE IV 07/17/20 09:00 07/17/20 09:01 DC 07/17/20 08:56 Ceftriaxone Sodium (Rocephin) 2 gm Q24H IVP 07/17/20 10:15 07/17/20 11:14 Doxycycline Hyclate (Vibra-Tab) 100 mg BID PO 07/17/20 10:45 07/17/20 11:13 ALLERGIES ALLERGIES: Coded Allergies: No Known Drug Allergies (Unverified , 03/28/17) ROS Review of System 14 point ROS conducted with pertinent positives noted above in HPI PHYSICAL EXAM General: Alert, Oriented X3, Cooperative, Other (frail, chronically ill appearing) HEENT: Atraumatic, Mucous membr. moist/pink Lungs: Other (crackles bilaterally ) Heart: Regular rate (SR/ST) Extremities: Other (trace LE edema ) Skin: No significant lesion Neuro: Normal speech, Sensation intact Psych/Mental Status: Mental status NL VITALS/I&O VITALS/I&O: Vital Signs Date Time Temp Pulse Resp B/P (MAP) Pulse Ox O2 Delivery O2 Flow Rate FiO2 07/17/20 11:05 97.6 101 10 167/89 (115) 100 Nasal Cannula 2.0 97.6 I & O 07/16/20 07/16/20 07/17/20 15:00 23:00 07:00 Intake Total 240 ml 320 ml Output Total 800 ml 900 ml Balance -560 ml -580 ml LABS Lab: Laboratory Tests Test 07/16/20 12:35 07/16/20 12:44 07/16/20 16:35 07/16/20 16:55 Urine Collection Type Unknown Urine Color Yellow Urine Clarity Clear Urine pH 5.5 (<5.0-8.0) Urine Specific Offerle 1.015 (1.000-1.030) Urine Protein >=300 mg/dL (NEG-TRACE) Urine Glucose (UA) 500 mg/dL (NEG) Urine Ketones (Stick) Negative mg/dL (NEG) Urine Blood Trace (NEG) Urine Nitrite Negative (NEG) Urine Bilirubin Negative (NEG) Urine Urobilinogen Dipstick 0.2 mg/dL (0.2 mg/dL) Urine Leukocyte Esterase Negative (NEG) Urine RBC Occ /HPF (0-2) Urine WBC 1-4 /HPF (0-4) Urine Squamous Epithelial Cells Few /LPF Urine Amorphous Sediment Present /HPF Urine Bacteria 0 /HPF (0-FEW) Urine Hyaline Casts Few /HPF Urine Granular Casts Occasional /HPF Urine Mucus Slight /LPF POC Urine HCG, Qualitative Hcg negative (Negative) Glucose (Fingerstick) 275 mg/dL (70-99) H Lactic Acid Level 1.7 mmol/L (0.4-2.0) Troponin I Quantitative < 0.017 ng/mL (0.000-0.055) Test 07/16/20 20:02 07/17/20 04:45 07/17/20 07:37 07/17/20 10:43 Troponin I Quantitative 0.038 ng/mL (0.000-0.055) White Blood Count 19.6 x10^3/uL (4.0-11.0) H Red Blood Count 3.58 x10^6/uL (3.50-5.40) Hemoglobin 10.6 g/dL (12.0-15.5) #L Hematocrit 32.3 % (36.0-47.0) L Mean Corpuscular Volume 90 fL (79-100) Mean Corpuscular Hemoglobin 30 pg (25-35) Mean Corpuscular Hemoglobin Concent 33 g/dL (31-37) Red Cell Distribution Width 14.9 % (11.5-14.5) H Platelet Count 313 x10^3/uL (140-400) Neutrophils (%) (Auto) 95 % (31-73) H Lymphocytes (%) (Auto) 4 % (24-48) L Monocytes (%) (Auto) 1 % (0-9) Eosinophils (%) (Auto) 0 % (0-3) Basophils (%) (Auto) 0 % (0-3) Neutrophils # (Auto) 18.6 x10^3/uL (1.8-7.7) H Lymphocytes # (Auto) 0.7 x10^3/uL (1.0-4.8) L Monocytes # (Auto) 0.2 x10^3/uL (0.0-1.1) Eosinophils # (Auto) 0.0 x10^3/uL (0.0-0.7) Basophils # (Auto) 0.0 x10^3/uL (0.0-0.2) Platelet Estimate Pending Sodium Level 136 mmol/L (136-145) Potassium Level 6.8 mmol/L (3.5-5.1) #*H Chloride Level 106 mmol/L (98-107) Carbon Dioxide Level 17 mmol/L (21-32) L Anion Gap 13 (6-14) Blood Urea Nitrogen 28 mg/dL (7-20) H Creatinine 2.1 mg/dL (0.6-1.0) H Estimated GFR (Cockcroft-Gault) 27.0 BUN/Creatinine Ratio 13 (6-20) Glucose Level 351 mg/dL (70-99) H Calcium Level 8.4 mg/dL (8.5-10.1) L Total Bilirubin 0.3 mg/dL (0.2-1.0) Aspartate Amino Transferase (AST) 19 U/L (15-37) Alanine Aminotransferase (ALT) 21 U/L (14-59) Alkaline Phosphatase 327 U/L (46-116) H Total Protein 8.3 g/dL (6.4-8.2) H Albumin 2.4 g/dL (3.4-5.0) L Albumin/Globulin Ratio 0.4 (1.0-1.7) L Glucose (Fingerstick) 247 mg/dL (70-99) H 53 mg/dL (70-99) L Laboratory Tests 07/17/20 04:45 Laboratory Tests 07/17/20 04:45 ASSESSMENT/PLAN ASSESSMENT/PLAN 1. Acute respiratory failure; CXR with diffuse bilateral infiltrate. COVID pending, although suspicion is more CHF 2. Acute CHF 3. Hypertension; labile 4. Diabetes, type 1 5. BRANDI on CKD, hyperkalemia; as per renal 6. Anemia s/p 2 units PRBCs 7, Hypothyroidism; TSH recently 7.8 Recommendations Echo to assess LV systolic function when COVID negative Hold ACEi with BRANDI Avoid nephrotoxins Lasix PRN Resume metoprolol, amlodipine Hydralazine IV PRN Supportive care CLAIRE HILLS MD 07/17/20 0172: CARDIAC CONSULT ASSESSMENT/PLAN ASSESSMENT/PLAN Patient seen and examined. Agree with ANESTHESIOLOGY TECHNOLOGIST's assessment and plan. ARF probably ac on chr diast HF COVID test pending - check 2DE if negative Transfused for anemia Cont management of ac on chr renal insuff per nephrology team Resume home antihypertensives and titrate for better BP control Thank you for your consultation MINDY BARRERA APRN Jul 17, 2020 12:28 CLAIRE HILLS MD Jul 17, 2020 21:52
--- NOTE | 2020-07-17 12:49 | NUR ---
Pt has eaten and now blood sugar is 302. Discussed with Dr Mary and sliding scale will be administered per orders.
--- NOTE | 2020-07-17 12:56 | PDOC ---
[employer] PROGRESS NOTE Date of Service DOS: DATE: 07/17/20 TIME: 12:56 Chief Complaint Chief Complaint Leukocytosis - getting solumedrol Acute Anemia - S/p PRBCs x2 BRANDI - vasomotor nephropathy - may have CKD with last Cr 1.2 Bilateral infiltrates on 2 L 02 - acute hypoxia. CHF likely HTN Hyperkalemia Problem list: LE EDEMA HYPERKALEMIA - given insulin and kayexelate, no significant renal disease history. Nephrology consulted DM I - Insulin ordered - a1c 6.8 NEUROPATHY - likely diabetic in nature Possible anemia of chronic disease - given her extremely small body habitus and limited muscle mass a congenital or developmental nutrition disorder or thalassemia is likely Plan: F/u labs cultures, F/u ECHO Dose Rocephin/Azithromycin Can move to CVC with negative COVID 19 History of Present Illness History of Present Illness Ms Lenz is a 34 yo F Czech-speaking only w/ PMHx DM, HTN, neuropathy who presents with shortness of breath. She denies and recent sick contacts or travel. On ROS noted no chest pain, fever, abdominal pain, nausea, vomiting, headache, dizziness, syncope, vision changes, back pain, dysuria. She denies any injury to her legs but has pain in bilateral legs Labs significant for Hb 6.5. K 5.5 and creatinine is 2.0 consistent with prior admission. BNP is also increased. EKG sinus tachy at 112. CXR with diffuse interstitial pattern, initially admitted for concern for COVID vs CHF. COVID 19 negative. Hb improved to 10.6, still in pain and tachycardic with K increased to 6.8. Less short of breath after 2 doses of lasix. Glucose dropped to 53 after 7u lispro to cover for glucose >300mg/dL. Vitals/I&O Vitals/I&O: Vital Signs Date Time Temp Pulse Resp B/P (MAP) Pulse Ox O2 Delivery O2 Flow Rate FiO2 07/17/20 11:05 97.6 101 10 167/89 (115) 100 Nasal Cannula 2.0 97.6 I & O 07/16/20 07/16/20 07/17/20 15:00 23:00 07:00 Intake Total 240 ml 320 ml Output Total 800 ml 900 ml Balance -560 ml -580 ml Physical Exam General: Alert Lungs: Crackles Labs Labs: Laboratory Tests Test 07/16/20 16:35 07/16/20 16:55 07/16/20 20:02 07/17/20 04:45 Glucose (Fingerstick) 275 mg/dL (70-99) Lactic Acid Level 1.7 mmol/L (0.4-2.0) Troponin I Quantitative < 0.017 ng/mL (0.000-0.055) 0.038 ng/mL (0.000-0.055) White Blood Count 19.6 x10^3/uL (4.0-11.0) Red Blood Count 3.58 x10^6/uL (3.50-5.40) Hemoglobin 10.6 g/dL (12.0-15.5) Hematocrit 32.3 % (36.0-47.0) Mean Corpuscular Volume 90 fL (79-100) Mean Corpuscular Hemoglobin 30 pg (25-35) Mean Corpuscular Hemoglobin Concent 33 g/dL (31-37) Red Cell Distribution Width 14.9 % (11.5-14.5) Platelet Count 313 x10^3/uL (140-400) Neutrophils (%) (Auto) 95 % (31-73) Lymphocytes (%) (Auto) 4 % (24-48) Monocytes (%) (Auto) 1 % (0-9) Eosinophils (%) (Auto) 0 % (0-3) Basophils (%) (Auto) 0 % (0-3) Neutrophils # (Auto) 18.6 x10^3/uL (1.8-7.7) Lymphocytes # (Auto) 0.7 x10^3/uL (1.0-4.8) Monocytes # (Auto) 0.2 x10^3/uL (0.0-1.1) Eosinophils # (Auto) 0.0 x10^3/uL (0.0-0.7) Basophils # (Auto) 0.0 x10^3/uL (0.0-0.2) Sodium Level 136 mmol/L (136-145) Potassium Level 6.8 mmol/L (3.5-5.1) Chloride Level 106 mmol/L (98-107) Carbon Dioxide Level 17 mmol/L (21-32) Anion Gap 13 (6-14) Blood Urea Nitrogen 28 mg/dL (7-20) Creatinine 2.1 mg/dL (0.6-1.0) Estimated GFR (Cockcroft-Gault) 27.0 BUN/Creatinine Ratio 13 (6-20) Glucose Level 351 mg/dL (70-99) Calcium Level 8.4 mg/dL (8.5-10.1) Total Bilirubin 0.3 mg/dL (0.2-1.0) Aspartate Amino Transf (AST/SGOT) 19 U/L (15-37) Alanine Aminotransferase (ALT/SGPT) 21 U/L (14-59) Alkaline Phosphatase 327 U/L (46-116) Total Protein 8.3 g/dL (6.4-8.2) Albumin 2.4 g/dL (3.4-5.0) Albumin/Globulin Ratio 0.4 (1.0-1.7) Test 07/17/20 07:37 07/17/20 10:43 07/17/20 12:49 Glucose (Fingerstick) 247 mg/dL (70-99) 53 mg/dL (70-99) 302 mg/dL (70-99) Assessment and Plan Assessmemt and Plan Problems Medical Problems: (1) Congestive heart failure Status: Acute (2) Metabolic acidosis Status: Acute (3) Symptomatic anemia Status: Acute Comment Review of Relevant I have reviewed the following items marylu (where applicable) has been applied. Medications: Current Medications Medications (Trade) Dose Ordered Sig/Rafaela Route PRN Reason Start Time Stop Time Status Last Admin Dose Admin Furosemide (Lasix) 40 mg 1X ONCE IVP 07/16/20 13:30 07/16/20 13:31 DC 07/16/20 13:57 Insulin Human Lispro (HumaLOG) 0-7 UNITS TIDWMEALS SQ 07/16/20 17:00 07/16/20 17:49 Furosemide (Lasix) 40 mg 1X ONCE IVP 07/16/20 22:00 07/16/20 22:01 DC 07/16/20 22:15 Clonidine HCl (Catapres) 0.1 mg PRN Q4HRS PRN PO HYPERTENSION 07/16/20 22:45 07/17/20 01:11 Sodium Polystyrene Sulfonate (Kayexalate) 15 gm 1X ONCE PO 07/17/20 07:45 07/17/20 07:46 DC 07/17/20 08:49 Calcium Gluconate (Calcium Gluconate) 1,000 mg 1X ONCE IVP 07/17/20 09:00 07/17/20 09:01 DC 07/17/20 08:54 Insulin Human Regular (HumuLIN R VIAL) 10 unit 1X ONCE IV 07/17/20 09:00 07/17/20 09:01 DC 07/17/20 08:56 Ceftriaxone Sodium (Rocephin) 2 gm Q24H IVP 07/17/20 10:15 07/17/20 11:14 Doxycycline Hyclate (Vibra-Tab) 100 mg BID PO 07/17/20 10:45 07/17/20 11:13 Justicifation of Admission Dx: Justifications for Admission: Justification of Admission Dx: Yes Respiratory Failure: Severe Resp Distress HOSSEIN CHEN MD Jul 17, 2020 12:56
[2020-07-17] MEDS ORDERED: ONDANSETRON PF 4 MG/2 ML VIAL. IV PRN (13:00)
--- NOTE | 2020-07-17 14:11 | CONS ---
DATE OF CONSULTATION: 07/17/2020 PATIENT'S ROOM: 662. REQUESTING PHYSICIAN: Dr. Barbour. REASON FOR CONSULTATION: Abnormal chest x-ray. HISTORY OF PRESENT ILLNESS: The patient is a pleasant 35-year-old [place] lady with a history of type 1 diabetes, also has previous urinary tract infections with group B strep and Klebsiella in the past. She developed fairly acute onset of shortness of air she states over a 3-day period. She denies any ill contacts. She has not traveled anywhere and she has not had any fevers or chills or sweats. She has a dry cough and she presented to [facility] secondary to increasing shortness of air. On arrival, she had a white count of 15.1, but also had a hemoglobin of 6.5. She has since been transfused 2 units. A chest x-ray showed some bilateral infiltrates. She underwent a renal sonogram, but did not show any complications with kidney since she had a distended urinary bladder. She has since urinated to relieve that. Currently, she is sitting on the side of the bed. She is cooperative. She is in no acute distress, but she does look a little tired. She is on nasal cannula oxygen. PAST MEDICAL HISTORY: Positive for diabetes, hypertension, neuropathy, history of E. coli, Klebsiella as well as group B strep urinary tract infections. PAST SURGICAL HISTORY: Positive for . Also, she has had previous cellulitis of her chin. REVIEW OF SYSTEMS: Otherwise negative. SOCIAL HISTORY: She is not a smoker. She has not been working. Again, no ill contacts. No alcohol. She does have a small dog at home. FAMILY HISTORY: Positive for hypertension. CURRENT MEDICATIONS: Include calcium gluconate, Catapres, Lasix, insulin, albuterol, Atrovent, Solu-Medrol x 1, and Zofran. PHYSICAL EXAMINATION: VITAL SIGNS: She is afebrile, temperature 96.6, pulse 109, respirations 22, blood pressure 174/86, satting 100% on 2 liters. CONSTITUTIONAL: She is sitting upright on the side of bed. She is cooperative. She is in no acute distress. She does look a little tired. HEENT: Pupils are equal and reactive. She has normal conjunctivae. Oral cavity, pharynx was clear. NECK: Supple, no JVD. LUNGS: Had some mild rhonchi, no gross wheeze. HEART: S1, S2. ABDOMEN: Soft, nontender, no guarding or rebound. EXTREMITIES: No clubbing or cyanosis. No gross edema. SKIN: Warm to touch without signs of generalized rash. NEUROLOGIC: She is nonfocal, answers questions, moves all extremities. PSYCHIATRIC: Affect is appropriate. LABORATORY DATA: Today, white count 19.6, hemoglobin 10.6, platelets of 313, neutrophils 95, lymphs were 4. Creatinine of 2.1, glucose of 351. AST 19, ALT 21, alkaline phosphatase 327, albumin is 2.4. Urinalysis was clean. Potassium was elevated at 6.8. CHEST X-RAY/RADIOLOGY: Reviewed in history of present illness. IMPRESSION: 1. Leukocytosis, now status post packed red blood cells and a dose of Solu-Medrol. 2. Anemia, status post packed red blood cells. 3. Acute kidney injury. 4. Bilateral infiltrates on 2 liters of oxygen. 5. Hypertension. 6. Diabetes. 7. Distended bladder, but has urinated. 8. Hyperkalemia and is currently being treated. RECOMMENDATIONS: We will follow up labs, cultures and COVID, followup echo, a dose of Rocephin and azithromycin. Await pulmonary evaluation. Thank you for courtesy of this consultation. JORGE LUIS GONSALEZ MD DR: TAIWO/france JOB#: [id number] / [id number]
[2020-07-17 14:18] LABS: % BANDS 9 % (0-9); % LYMPHS 2 % (24-48); % MONOS 4 % (0-10); % SEGS 85 % (35-66); PLT ESTIMATE ADEQUATE (ADEQUATE)
--- NOTE | 2020-07-17 14:38 | PDOC2 ---
CONSULT Date of Consult Date of Consult DATE: 07/17/20 TIME: 14:22 Reason for Consult Reason for Consult: BRANDI, hyperkalemia Source Source: Chart review History of Present Illness Reason for Visit: Pt is a 35-year-old [place] female with a history of type 1 diabetes, previous urinary tract infections with group B strep and Klebsiella in the past. She developed acute onset of shortness of breath over a 3-day period. She denies any ill contacts , No travel . Denies fevers or chills or sweats. She has a dry cough , NO cp No N/V/D , No abdominal pain. No Symptoms of UTI At presentation found to have low Hgb She has since been transfused 2 units. A chest x-ray showed some bilateral infiltrates. Past Medical History Cardiovascular: HTN Pulmonary: Asthma CENTRAL NERVOUS SYSTEM: Periperal neuropathy GI: GERD Heme/Onc: Anemia NOS Psych: Anxiety, Depression Renal/: Chronic renal insuff Endocrine: Diabetes, Hypothyroidism Past Surgical History Past Surgical History: Family History Family History: Hypertension Social History ALCOHOL: none Drugs: None Lives: with Family Current Problem List Problem List Problems Medical Problems: (1) Congestive heart failure Status: Acute (2) Metabolic acidosis Status: Acute (3) Symptomatic anemia Status: Acute Current Medications Current Medications Current Medications Methylprednisolone Sodium Succinate (SOLU-Medrol 125MG VIAL) 125 mg 1X ONCE IV Last administered on 07/16/20at 11:55; Start 07/16/20 at 12:00; Stop 07/16/20 at 12:01; Status DC Albuterol/ Ipratropium (Duoneb) 6 ml 1X ONCE NEB Last administered on 07/16/20at 12:11; Start 07/16/20 at 12:00; Stop 07/16/20 at 12:01; Status DC Furosemide (Lasix) 40 mg 1X ONCE IVP Last administered on 07/16/20at 13:57; Start 07/16/20 at 13:30; Stop 07/16/20 at 13:31; Status DC Ondansetron HCl (Zofran) 4 mg PRN Q8HRS PRN IV NAUSEA/VOMITING; Start 07/16/20 at 14:30; Stop 07/17/20 at 12:55; Status DC Insulin Human Lispro (HumaLOG) 0-7 UNITS TIDWMEALS SQ Last administered on 07/17/20at 13:04; Start 07/16/20 at 17:00 Dextrose (Dextrose 50%-Water Syringe) 12.5 gm PRN Q15MIN PRN IV SEE COMMENTS; Start 07/16/20 at 14:30 Furosemide (Lasix) 40 mg 1X ONCE IVP Last administered on 07/16/20at 22:15; Start 07/16/20 at 22:00; Stop 07/16/20 at 22:01; Status DC Clonidine HCl (Catapres) 0.1 mg PRN Q4HRS PRN PO HYPERTENSION Last administered on 07/17/20at 01:11; Start 07/16/20 at 22:45 Sodium Polystyrene Sulfonate (Kayexalate) 15 gm 1X ONCE PO Last administered on 07/17/20at 08:49; Start 07/17/20 at 07:45; Stop 07/17/20 at 07:46; Status DC Calcium Gluconate (Calcium Gluconate) 1,000 mg 1X ONCE IVP Last administered on 07/17/20at 08:54; Start 07/17/20 at 09:00; Stop 07/17/20 at 09:01; Status DC Insulin Human Regular (HumuLIN R VIAL) 10 unit 1X ONCE IV ; Start 07/17/20 at 09:00; Stop 07/17/20 at 08:43; Status DC Insulin Human Regular (HumuLIN R VIAL) 10 unit 1X ONCE IV ; Start 07/17/20 at 09:00; Stop 07/17/20 at 08:51; Status DC Insulin Human Regular (HumuLIN R VIAL) 10 unit 1X ONCE IV Last administered on 07/17/20at 08:56; Start 07/17/20 at 09:00; Stop 07/17/20 at 09:01; Status DC Ceftriaxone Sodium (Rocephin) 2 gm Q24H IVP Last administered on 07/17/20at 11:14; Start 07/17/20 at 10:15 Azithromycin (Zithromax) 500 mg DAILY PO ; Start 07/17/20 at 10:15; Stop 07/17/20 at 10:41; Status DC Doxycycline Hyclate (Vibra-Tab) 100 mg BID PO Last administered on 07/17/20at 11:13; Start 07/17/20 at 10:45 Ondansetron HCl (Zofran) 4 mg PRN Q4HRS PRN IV NAUSEA/VOMITING; Start 07/17/20 at 13:00 Active Scripts Active Thera-M Tablet (Multivits,Ca,Minerals/Iron/Fa) 1 Each Tablet 1 Tab PO DAILY 30 Days Synthroid (Levothyroxine Sodium) 50 Mcg Tablet 50 Mcg PO DAILY06 30 Days Metoprolol Tartrate 25 Mg Tablet 25 Mg PO BID 30 Days Levemir Flextouch (Insulin Detemir) 100 Unit/1 Ml Insuln.pen 20 Units SQ QHS Colace (Docusate Sodium) 100 Mg Capsule 100 Mg PO PRN DAILY PRN Tylenol (Acetaminophen) 325 Mg Tablet 650 Mg PO PRN Q6HRS PRN Reported Duloxetine HCl 40 Mg Capsule.dr 1 Cap PO DAILY 30 Days Lisinopril 40 Mg Tablet 40 Mg PO DAILY Amlodipine Besylate 5 Mg Tablet 5 Mg PO DAILY Gabapentin (Gabapentin) 300 Mg Capsule 3 Cap PO Q12HR [Humalog 75-25] 20 Units SQ BIDWMEALS Allergies Allergies: Coded Allergies: No Known Drug Allergies (Unverified , 03/28/17) ROS Review of System Per HPI Physical Exam Physical Exam GEN : nad HEENT: OM dry , On o2 by NC NECK: Supple LUNGS: Had some mild rhonchi,non labored HEART: S1, S2. ABDOMEN: Soft, nontender, no guarding or rebound. EXTREMITIES: No clubbing or cyanosis. SKIN: No generalized rash. NEUROLOGIC nonfocal, answers questions, moves all extremities. PSYCHIATRIC: Affect is appropriate No Wilson, No SP or CVA tenderness Vital Signs Vital Signs Date Time Temp Pulse Resp B/P (MAP) Pulse Ox O2 Delivery O2 Flow Rate FiO2 07/17/20 11:05 97.6 101 10 167/89 (115) 100 Nasal Cannula 2.0 97.6 Assessment & Plan BRANDI - Vasomotor, drop in Hgb Ordered Renal US- positive for Bladder distension, No hydronephrosis After US voided 800 ml of Urine , UA no e/o UTI, No microscopic hematuria Supportive care , avoid nephrotoxins, strict I/O CKD stage 2/3 - based on PMC labs , suspect 2/2 DM type 1 HyperKalemia- severe- No EKG changes, BG elevated Temporizing measures and Nakul Spears RN Ordered US - as above , Repeat K in 4 hrs Anemia- Acute drop in Hgb, s/p PRBC at presentation DM Type 1 - per primary Proteinuria- Overt on UA, check Pr/Cr Bilateral infiltrates on 2 liters of oxygen. Hypertension- On MARINO-I, CCB and BB at home Hold MARINO-I Dw RN Labs Labs Laboratory Tests Test 07/16/20 11:40 07/16/20 11:46 07/16/20 12:05 07/16/20 12:35 White Blood Count 15.1 x10^3/uL (4.0-11.0) Red Blood Count 2.32 x10^6/uL (3.50-5.40) Hemoglobin 6.5 g/dL (12.0-15.5) Hematocrit 20.7 % (36.0-47.0) Mean Corpuscular Volume 89 fL (79-100) Mean Corpuscular Hemoglobin 28 pg (25-35) Mean Corpuscular Hemoglobin Concent 32 g/dL (31-37) Red Cell Distribution Width 17.2 % (11.5-14.5) Platelet Count 396 x10^3/uL (140-400) Neutrophils (%) (Auto) 75 % (31-73) Lymphocytes (%) (Auto) 18 % (24-48) Monocytes (%) (Auto) 3 % (0-9) Eosinophils (%) (Auto) 3 % (0-3) Basophils (%) (Auto) 1 % (0-3) Neutrophils # (Auto) 11.3 x10^3/uL (1.8-7.7) Lymphocytes # (Auto) 2.7 x10^3/uL (1.0-4.8) Monocytes # (Auto) 0.5 x10^3/uL (0.0-1.1) Eosinophils # (Auto) 0.5 x10^3/uL (0.0-0.7) Basophils # (Auto) 0.1 x10^3/uL (0.0-0.2) Sodium Level 136 mmol/L (136-145) Potassium Level 5.5 mmol/L (3.5-5.1) Chloride Level 107 mmol/L (98-107) Carbon Dioxide Level 17 mmol/L (21-32) Anion Gap 12 (6-14) Blood Urea Nitrogen 21 mg/dL (7-20) Creatinine 2.0 mg/dL (0.6-1.0) Estimated GFR (Cockcroft-Gault) 28.5 BUN/Creatinine Ratio 11 (6-20) Glucose Level 225 mg/dL (70-99) Lactic Acid Level 1.2 mmol/L (0.4-2.0) Calcium Level 8.5 mg/dL (8.5-10.1) Total Bilirubin 0.2 mg/dL (0.2-1.0) Aspartate Amino Transf (AST/SGOT) 26 U/L (15-37) Alanine Aminotransferase (ALT/SGPT) 31 U/L (14-59) Alkaline Phosphatase 366 U/L (46-116) Troponin I Quantitative < 0.017 ng/mL (0.000-0.055) TH-Tvi-S-Type Natriuretic Peptide 5076 pg/mL (0-124) Total Protein 8.8 g/dL (6.4-8.2) Albumin 2.6 g/dL (3.4-5.0) Albumin/Globulin Ratio 0.4 (1.0-1.7) O2 Saturation 92 % (92-99) Arterial Blood pH 7.19 (7.35-7.45) Arterial Blood pCO2 at Patient Temp 37 mmHg (35-46) Arterial Blood pO2 at Patient Temp 74 mmHg (85-108) Arterial Blood HCO3 14 mmol/L (21-28) Arterial Blood Base Excess -13 mmol/L (-3-3) FiO2 32% Coronavirus (PCR) Not detected (Not Detected) Urine Collection Type Unknown Urine Color Yellow Urine Clarity Clear Urine pH 5.5 (<5.0-8.0) Urine Specific [place] 1.015 (1.000-1.030) Urine Protein >=300 mg/dL (NEG-TRACE) Urine Glucose (UA) 500 mg/dL (NEG) Urine Ketones (Stick) Negative mg/dL (NEG) Urine Blood Trace (NEG) Urine Nitrite Negative (NEG) Urine Bilirubin Negative (NEG) Urine Urobilinogen Dipstick 0.2 mg/dL (0.2 mg/dL) Urine Leukocyte Esterase Negative (NEG) Urine RBC Occ /HPF (0-2) Urine WBC 1-4 /HPF (0-4) Urine Squamous Epithelial Cells Few /LPF Urine Amorphous Sediment Present /HPF Urine Bacteria 0 /HPF (0-FEW) Urine Hyaline Casts Few /HPF Urine Granular Casts Occasional /HPF Urine Mucus Slight /LPF Test 07/16/20 12:44 07/16/20 16:35 07/16/20 16:55 07/16/20 20:02 Bedside Urine HCG, Qualitative Hcg negative (Negative) Glucose (Fingerstick) 275 mg/dL (70-99) Lactic Acid Level 1.7 mmol/L (0.4-2.0) Troponin I Quantitative < 0.017 ng/mL (0.000-0.055) 0.038 ng/mL (0.000-0.055) Test 07/17/20 04:45 07/17/20 07:37 07/17/20 10:43 07/17/20 12:49 White Blood Count 19.6 x10^3/uL (4.0-11.0) Red Blood Count 3.58 x10^6/uL (3.50-5.40) Hemoglobin 10.6 g/dL (12.0-15.5) Hematocrit 32.3 % (36.0-47.0) Mean Corpuscular Volume 90 fL (79-100) Mean Corpuscular Hemoglobin 30 pg (25-35) Mean Corpuscular Hemoglobin Concent 33 g/dL (31-37) Red Cell Distribution Width 14.9 % (11.5-14.5) Platelet Count 313 x10^3/uL (140-400) Neutrophils (%) (Auto) 95 % (31-73) Lymphocytes (%) (Auto) 4 % (24-48) Monocytes (%) (Auto) 1 % (0-9) Eosinophils (%) (Auto) 0 % (0-3) Basophils (%) (Auto) 0 % (0-3) Neutrophils # (Auto) 18.6 x10^3/uL (1.8-7.7) Lymphocytes # (Auto) 0.7 x10^3/uL (1.0-4.8) Monocytes # (Auto) 0.2 x10^3/uL (0.0-1.1) Eosinophils # (Auto) 0.0 x10^3/uL (0.0-0.7) Basophils # (Auto) 0.0 x10^3/uL (0.0-0.2) Segmented Neutrophils % 85 % (35-66) Band Neutrophils % 9 % (0-9) Lymphocytes % 2 % (24-48) Monocytes % 4 % (0-10) Platelet Estimate Adequate (ADEQUATE) Sodium Level 136 mmol/L (136-145) Potassium Level 6.8 mmol/L (3.5-5.1) Chloride Level 106 mmol/L (98-107) Carbon Dioxide Level 17 mmol/L (21-32) Anion Gap 13 (6-14) Blood Urea Nitrogen 28 mg/dL (7-20) Creatinine 2.1 mg/dL (0.6-1.0) Estimated GFR (Cockcroft-Gault) 27.0 BUN/Creatinine Ratio 13 (6-20) Glucose Level 351 mg/dL (70-99) Calcium Level 8.4 mg/dL (8.5-10.1) Total Bilirubin 0.3 mg/dL (0.2-1.0) Aspartate Amino Transf (AST/SGOT) 19 U/L (15-37) Alanine Aminotransferase (ALT/SGPT) 21 U/L (14-59) Alkaline Phosphatase 327 U/L (46-116) Total Protein 8.3 g/dL (6.4-8.2) Albumin 2.4 g/dL (3.4-5.0) Albumin/Globulin Ratio 0.4 (1.0-1.7) Glucose (Fingerstick) 247 mg/dL (70-99) 53 mg/dL (70-99) 302 mg/dL (70-99) Laboratory Tests Test 07/16/20 16:35 07/16/20 16:55 07/16/20 20:02 07/17/20 04:45 Glucose (Fingerstick) 275 mg/dL (70-99) Lactic Acid Level 1.7 mmol/L (0.4-2.0) Troponin I Quantitative < 0.017 ng/mL (0.000-0.055) 0.038 ng/mL (0.000-0.055) White Blood Count 19.6 x10^3/uL (4.0-11.0) Red Blood Count 3.58 x10^6/uL (3.50-5.40) Hemoglobin 10.6 g/dL (12.0-15.5) Hematocrit 32.3 % (36.0-47.0) Mean Corpuscular Volume 90 fL (79-100) Mean Corpuscular Hemoglobin 30 pg (25-35) Mean Corpuscular Hemoglobin Concent 33 g/dL (31-37) Red Cell Distribution Width 14.9 % (11.5-14.5) Platelet Count 313 x10^3/uL (140-400) Neutrophils (%) (Auto) 95 % (31-73) Lymphocytes (%) (Auto) 4 % (24-48) Monocytes (%) (Auto) 1 % (0-9) Eosinophils (%) (Auto) 0 % (0-3) Basophils (%) (Auto) 0 % (0-3) Neutrophils # (Auto) 18.6 x10^3/uL (1.8-7.7) Lymphocytes # (Auto) 0.7 x10^3/uL (1.0-4.8) Monocytes # (Auto) 0.2 x10^3/uL (0.0-1.1) Eosinophils # (Auto) 0.0 x10^3/uL (0.0-0.7) Basophils # (Auto) 0.0 x10^3/uL (0.0-0.2) Segmented Neutrophils % 85 % (35-66) Band Neutrophils % 9 % (0-9) Lymphocytes % 2 % (24-48) Monocytes % 4 % (0-10) Platelet Estimate Adequate (ADEQUATE) Sodium Level 136 mmol/L (136-145) Potassium Level 6.8 mmol/L (3.5-5.1) Chloride Level 106 mmol/L (98-107) Carbon Dioxide Level 17 mmol/L (21-32) Anion Gap 13 (6-14) Blood Urea Nitrogen 28 mg/dL (7-20) Creatinine 2.1 mg/dL (0.6-1.0) Estimated GFR (Cockcroft-Gault) 27.0 BUN/Creatinine Ratio 13 (6-20) Glucose Level 351 mg/dL (70-99) Calcium Level 8.4 mg/dL (8.5-10.1) Total Bilirubin 0.3 mg/dL (0.2-1.0) Aspartate Amino Transf (AST/SGOT) 19 U/L (15-37) Alanine Aminotransferase (ALT/SGPT) 21 U/L (14-59) Alkaline Phosphatase 327 U/L (46-116) Total Protein 8.3 g/dL (6.4-8.2) Albumin 2.4 g/dL (3.4-5.0) Albumin/Globulin Ratio 0.4 (1.0-1.7) Test 07/17/20 07:37 07/17/20 10:43 07/17/20 12:49 Glucose (Fingerstick) 247 mg/dL (70-99) 53 mg/dL (70-99) 302 mg/dL (70-99) Review All relevant outside records, renal labs, imaging studies, telemetry/EKG's were reviewed. BOO ARELLANO MD Jul 17, 2020 14:37
--- NOTE | 2020-07-17 16:40 | NUR ---
Blood sugar checked and is 49. Pt awake and alert. Juice given. Dr Mary notified and he will adjust sliding scale orders.
[2020-07-17] MEDS ORDERED: hydrALAZINE 20 MG/ML VIAL. IVP PRN (16:45)
--- NOTE | 2020-07-17 16:49 | NUR ---
HARDEEP following. Reviewed chart and discussed with RN. Pt from home with family. Pt currently on 2l 02 with an ADA diet. Pt COVID negative. Pt on IV Rocephin. Nephrology consulted for this pt. HARDEEP to follow. Addendum: 07/17/20 at 1651 by MINI MEIER HARDEEP consulted for discharge planning. HARDEEP called into pt's room but there was no answer. Addendum: 07/18/20 at 1020 by MINI MEIER HARDEEP reviewed chart. Pt left AMA yesterday, 07/17/2020
--- NOTE | 2020-07-17 17:39 | NUR ---
COVID neg. Spoke to Dr Mary and Dr Anaya. Ok to move to [facility] when bed available. Pt will not be retested for COVID.
[2020-07-17] MEDS ORDERED: FUROSEMIDE 20 MG/2 ML VIAL. IVP ONE (17:45)
[2020-07-17 17:50] LABS: CHOLESTEROL/HDL RATIO 3.4
[2020-07-17] MEDS ORDERED: DEXTROSE 50% 25 GM / 50ML DISP.SYRIN. IV PRN (19:45)
[2020-07-17] MEDS ORDERED: METOPROLOL TART IMMED RELEASE 25 MG TABLET. PO SCH (21:00)
--- NOTE | 2020-07-17 22:00 | NUR ---
Patient called this nurse to room and stated she wants to go home and that she misses her mom and family. I explained to patient the importance of staying because of her condition and that the doctors are still wanting to run tests and give more medication to make her better. I also explained to her that since her covid test was negative so her family would be able to come visit tomorrow. She stated she feels better than yesterday so she wants to leave tonight and she already called her family to come pick her up. Patient signed AMA form. IV discontinued. Dr. Mary, nursing supervisor computer operations and security notified of patients request to leave AMA. Security and AVIATION SAFETY OFFICER assisted patient out in wheelchair at [phone]. Family at ER entrance to pick patient up in POV.
--- NOTE | 2020-07-17 22:34 | PDOC3 ---
Discharge Summary Visit Information Date of Admission: Jul 16, 2020 Date of Discharge: Jul 17, 2020 Admitting Diagnosis: Acute hypoxia Final Diagnosis Problems Medical Problems: (1) Congestive heart failure Status: Acute (2) Metabolic acidosis Status: Acute (3) Symptomatic anemia Status: Acute Brief Hospital Course Allergies Allergies Coded Allergies Type Severity Reaction Last Updated Verified No Known Drug Allergies 03/28/17 No Vital Signs Vital Signs Date Time Temp Pulse Resp B/P (MAP) Pulse Ox O2 Delivery O2 Flow Rate FiO2 07/17/20 19:58 97.9 107 20 156/77 (103) 100 Nasal Cannula 2.0 97.9 Lab Results Laboratory Tests Test 07/16/20 11:40 07/16/20 11:46 07/16/20 12:05 07/16/20 12:35 White Blood Count 15.1 x10^3/uL (4.0-11.0) Red Blood Count 2.32 x10^6/uL (3.50-5.40) Hemoglobin 6.5 g/dL (12.0-15.5) Hematocrit 20.7 % (36.0-47.0) Mean Corpuscular Volume 89 fL (79-100) Mean Corpuscular Hemoglobin 28 pg (25-35) Mean Corpuscular Hemoglobin Concent 32 g/dL (31-37) Red Cell Distribution Width 17.2 % (11.5-14.5) Platelet Count 396 x10^3/uL (140-400) Neutrophils (%) (Auto) 75 % (31-73) Lymphocytes (%) (Auto) 18 % (24-48) Monocytes (%) (Auto) 3 % (0-9) Eosinophils (%) (Auto) 3 % (0-3) Basophils (%) (Auto) 1 % (0-3) Neutrophils # (Auto) 11.3 x10^3/uL (1.8-7.7) Lymphocytes # (Auto) 2.7 x10^3/uL (1.0-4.8) Monocytes # (Auto) 0.5 x10^3/uL (0.0-1.1) Eosinophils # (Auto) 0.5 x10^3/uL (0.0-0.7) Basophils # (Auto) 0.1 x10^3/uL (0.0-0.2) Sodium Level 136 mmol/L (136-145) Potassium Level 5.5 mmol/L (3.5-5.1) Chloride Level 107 mmol/L (98-107) Carbon Dioxide Level 17 mmol/L (21-32) Anion Gap 12 (6-14) Blood Urea Nitrogen 21 mg/dL (7-20) Creatinine 2.0 mg/dL (0.6-1.0) Estimated GFR (Cockcroft-Gault) 28.5 BUN/Creatinine Ratio 11 (6-20) Glucose Level 225 mg/dL (70-99) Lactic Acid Level 1.2 mmol/L (0.4-2.0) Calcium Level 8.5 mg/dL (8.5-10.1) Total Bilirubin 0.2 mg/dL (0.2-1.0) Aspartate Amino Transf (AST/SGOT) 26 U/L (15-37) Alanine Aminotransferase (ALT/SGPT) 31 U/L (14-59) Alkaline Phosphatase 366 U/L (46-116) Troponin I Quantitative < 0.017 ng/mL (0.000-0.055) OH-Exn-C-Type Natriuretic Peptide 5076 pg/mL (0-124) Total Protein 8.8 g/dL (6.4-8.2) Albumin 2.6 g/dL (3.4-5.0) Albumin/Globulin Ratio 0.4 (1.0-1.7) O2 Saturation 92 % (92-99) Arterial Blood pH 7.19 (7.35-7.45) Arterial Blood pCO2 at Patient Temp 37 mmHg (35-46) Arterial Blood pO2 at Patient Temp 74 mmHg (85-108) Arterial Blood HCO3 14 mmol/L (21-28) Arterial Blood Base Excess -13 mmol/L (-3-3) FiO2 32% Coronavirus (PCR) Not detected (Not Detected) Urine Collection Type Unknown Urine Color Yellow Urine Clarity Clear Urine pH 5.5 (<5.0-8.0) Urine Specific [place] 1.015 (1.000-1.030) Urine Protein >=300 mg/dL (NEG-TRACE) Urine Glucose (UA) 500 mg/dL (NEG) Urine Ketones (Stick) Negative mg/dL (NEG) Urine Blood Trace (NEG) Urine Nitrite Negative (NEG) Urine Bilirubin Negative (NEG) Urine Urobilinogen Dipstick 0.2 mg/dL (0.2 mg/dL) Urine Leukocyte Esterase Negative (NEG) Urine RBC Occ /HPF (0-2) Urine WBC 1-4 /HPF (0-4) Urine Squamous Epithelial Cells Few /LPF Urine Amorphous Sediment Present /HPF Urine Bacteria 0 /HPF (0-FEW) Urine Hyaline Casts Few /HPF Urine Granular Casts Occasional /HPF Urine Mucus Slight /LPF Test 07/16/20 12:44 07/16/20 16:35 07/16/20 16:55 07/16/20 20:02 Bedside Urine HCG, Qualitative Hcg negative (Negative) Glucose (Fingerstick) 275 mg/dL (70-99) Lactic Acid Level 1.7 mmol/L (0.4-2.0) Troponin I Quantitative < 0.017 ng/mL (0.000-0.055) 0.038 ng/mL (0.000-0.055) Test 07/17/20 04:45 07/17/20 07:37 07/17/20 10:43 07/17/20 12:49 White Blood Count 19.6 x10^3/uL (4.0-11.0) Red Blood Count 3.58 x10^6/uL (3.50-5.40) Hemoglobin 10.6 g/dL (12.0-15.5) Hematocrit 32.3 % (36.0-47.0) Mean Corpuscular Volume 90 fL (79-100) Mean Corpuscular Hemoglobin 30 pg (25-35) Mean Corpuscular Hemoglobin Concent 33 g/dL (31-37) Red Cell Distribution Width 14.9 % (11.5-14.5) Platelet Count 313 x10^3/uL (140-400) Neutrophils (%) (Auto) 95 % (31-73) Lymphocytes (%) (Auto) 4 % (24-48) Monocytes (%) (Auto) 1 % (0-9) Eosinophils (%) (Auto) 0 % (0-3) Basophils (%) (Auto) 0 % (0-3) Neutrophils # (Auto) 18.6 x10^3/uL (1.8-7.7) Lymphocytes # (Auto) 0.7 x10^3/uL (1.0-4.8) Monocytes # (Auto) 0.2 x10^3/uL (0.0-1.1) Eosinophils # (Auto) 0.0 x10^3/uL (0.0-0.7) Basophils # (Auto) 0.0 x10^3/uL (0.0-0.2) Segmented Neutrophils % 85 % (35-66) Band Neutrophils % 9 % (0-9) Lymphocytes % 2 % (24-48) Monocytes % 4 % (0-10) Platelet Estimate Adequate (ADEQUATE) Sodium Level 136 mmol/L (136-145) Potassium Level 6.8 mmol/L (3.5-5.1) Chloride Level 106 mmol/L (98-107) Carbon Dioxide Level 17 mmol/L (21-32) Anion Gap 13 (6-14) Blood Urea Nitrogen 28 mg/dL (7-20) Creatinine 2.1 mg/dL (0.6-1.0) Estimated GFR (Cockcroft-Gault) 27.0 BUN/Creatinine Ratio 13 (6-20) Glucose Level 351 mg/dL (70-99) Calcium Level 8.4 mg/dL (8.5-10.1) Total Bilirubin 0.3 mg/dL (0.2-1.0) Aspartate Amino Transf (AST/SGOT) 19 U/L (15-37) Alanine Aminotransferase (ALT/SGPT) 21 U/L (14-59) Alkaline Phosphatase 327 U/L (46-116) Total Protein 8.3 g/dL (6.4-8.2) Albumin 2.4 g/dL (3.4-5.0) Albumin/Globulin Ratio 0.4 (1.0-1.7) Triglycerides Level 81 mg/dL (0-150) Cholesterol Level 231 mg/dL (0-200) LDL Cholesterol, Calculated 148 mg/dL (0-100) VLDL Cholesterol, Calculated 16 mg/dL (0-40) Non-HDL Cholesterol Calculated 164 mg/dL (0-129) HDL Cholesterol 67 mg/dL (40-60) Cholesterol/HDL Ratio 3.4 Glucose (Fingerstick) 247 mg/dL (70-99) 53 mg/dL (70-99) 302 mg/dL (70-99) Test 07/17/20 16:34 07/17/20 20:42 Glucose (Fingerstick) 49 mg/dL (70-99) 107 mg/dL (70-99) Laboratory Tests Test 07/17/20 04:45 07/17/20 07:37 07/17/20 10:43 07/17/20 12:49 White Blood Count 19.6 x10^3/uL (4.0-11.0) Red Blood Count 3.58 x10^6/uL (3.50-5.40) Hemoglobin 10.6 g/dL (12.0-15.5) Hematocrit 32.3 % (36.0-47.0) Mean Corpuscular Volume 90 fL (79-100) Mean Corpuscular Hemoglobin 30 pg (25-35) Mean Corpuscular Hemoglobin Concent 33 g/dL (31-37) Red Cell Distribution Width 14.9 % (11.5-14.5) Platelet Count 313 x10^3/uL (140-400) Neutrophils (%) (Auto) 95 % (31-73) Lymphocytes (%) (Auto) 4 % (24-48) Monocytes (%) (Auto) 1 % (0-9) Eosinophils (%) (Auto) 0 % (0-3) Basophils (%) (Auto) 0 % (0-3) Neutrophils # (Auto) 18.6 x10^3/uL (1.8-7.7) Lymphocytes # (Auto) 0.7 x10^3/uL (1.0-4.8) Monocytes # (Auto) 0.2 x10^3/uL (0.0-1.1) Eosinophils # (Auto) 0.0 x10^3/uL (0.0-0.7) Basophils # (Auto) 0.0 x10^3/uL (0.0-0.2) Segmented Neutrophils % 85 % (35-66) Band Neutrophils % 9 % (0-9) Lymphocytes % 2 % (24-48) Monocytes % 4 % (0-10) Platelet Estimate Adequate (ADEQUATE) Sodium Level 136 mmol/L (136-145) Potassium Level 6.8 mmol/L (3.5-5.1) Chloride Level 106 mmol/L (98-107) Carbon Dioxide Level 17 mmol/L (21-32) Anion Gap 13 (6-14) Blood Urea Nitrogen 28 mg/dL (7-20) Creatinine 2.1 mg/dL (0.6-1.0) Estimated GFR (Cockcroft-Gault) 27.0 BUN/Creatinine Ratio 13 (6-20) Glucose Level 351 mg/dL (70-99) Calcium Level 8.4 mg/dL (8.5-10.1) Total Bilirubin 0.3 mg/dL (0.2-1.0) Aspartate Amino Transf (AST/SGOT) 19 U/L (15-37) Alanine Aminotransferase (ALT/SGPT) 21 U/L (14-59) Alkaline Phosphatase 327 U/L (46-116) Total Protein 8.3 g/dL (6.4-8.2) Albumin 2.4 g/dL (3.4-5.0) Albumin/Globulin Ratio 0.4 (1.0-1.7) Triglycerides Level 81 mg/dL (0-150) Cholesterol Level 231 mg/dL (0-200) LDL Cholesterol, Calculated 148 mg/dL (0-100) VLDL Cholesterol, Calculated 16 mg/dL (0-40) Non-HDL Cholesterol Calculated 164 mg/dL (0-129) HDL Cholesterol 67 mg/dL (40-60) Cholesterol/HDL Ratio 3.4 Glucose (Fingerstick) 247 mg/dL (70-99) 53 mg/dL (70-99) 302 mg/dL (70-99) Test 07/17/20 16:34 07/17/20 20:42 Glucose (Fingerstick) 49 mg/dL (70-99) 107 mg/dL (70-99) Brief Hospital Course Ms Lenz is a 34 yo F Divehi-speaking only w/ PMHx DM, HTN, neuropathy who presents with shortness of breath. She denies and recent sick contacts or travel. On ROS noted no chest pain, fever, abdominal pain, nausea, vomiting, headache, dizziness, syncope, vision changes, back pain, dysuria. She denies any injury to her legs but has pain in bilateral legs Labs significant for Hb 6.5. K 5.5 and creatinine is 2.0 consistent with prior admission. BNP is also increased. EKG sinus tachy at 112. CXR with diffuse interstitial pattern, initially admitted for concern for COVID vs CHF. COVID 19 negative. Hb improved to 10.6, still in pain and tachycardic with K increased to 6.8. Less short of breath after 2 doses of lasix. Glucose dropped to 53 after 7u lispro to cover for glucose >300mg/dL. In the evening on 07/16/2020 I was notified by nursing staff the patient stated she felt better and called her family to pick her up. I advised via telephone she is still very ill and she insists on leaving against medical advice. She did tell nursing staff she has a PCP f/u on 07/22/2020 Consults: Cardiology, Pulmonology, ID Problem list: Leukocytosis - getting solumedrol Acute Anemia - S/p PRBCs x2 BRANDI - vasomotor nephropathy - may have CKD with last Cr 1.2 Bilateral infiltrates on 2 L 02 - acute hypoxia. CHF likely. 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 Nephrology consulted DM I - Insulin ordered - a1c 6.8 NEUROPATHY - likely diabetic in nature Possible anemia of chronic disease - given her extremely small body habitus and limited muscle mass a congenital or developmental nutrition disorder or thalassemia is likely Greater than 30 minutes spent on patient care on day she left AMA. Discharge Information Condition at Discharge: Stable, Comment (AMA) Follow Up: Weeks Disposition/Orders: Other (Left AMA) Scheduled Amlodipine Besylate (Amlodipine Besylate) 5 Mg Tablet, 5 MG PO DAILY for hypertension, (Reported) Entered as Reported by: EDUARD CASTILLO on 07/16/201805 Last Taken: Unknown Dose on Unknown Date & Time Last Action: Continued on 07/17/20 163 by MINDY BARRERA APRN Duloxetine HCl (Duloxetine HCl) 40 Mg Capsule., 1 CAP PO DAILY for depression for 30 Days, #30 Ref 0 (Reported) Entered as Reported by: EDUARD CASTILLO on 07/16/201805 Last Taken: Unknown Dose on Unknown Date & Time Last Action: New Order on 07/16/201805 by EDUARD CASTILLO Gabapentin (Gabapentin ) 300 Mg Capsule, 3 CAP PO Q12HR for NEUROGENIC PAIN, (Reported) Entered as Reported by: SAM OMALLEY on 01/26/20 1510 Last Action: Reviewed on 07/16/201803 by EDUARD CASTILLO Insulin Detemir (Levemir Flextouch) 100 Unit/1 Ml Insuln.pen, 20 UNITS SQ QHS, #1 Prescribed by: KIKO HUERTA MD on 07/19/171803 Levothyroxine Sodium (Synthroid) 50 Mcg Tablet, 50 MCG PO DAILY06 for hypo thyroidism for 30 Days, #30 Prescribed by: ISSA MERCADO MD on 01/04/201134 Last Action: Reviewed on 07/16/201758 by EDUARD CASTILLO Lisinopril (Lisinopril) 40 Mg Tablet, 40 MG PO DAILY for hypertension, ( Reported) Entered as Reported by: EDUARD CASTILLO on 07/16/201805 Last Taken: Unknown Dose on Unknown Date & Time Last Action: New Order on 07/16/201805 by EDUARD CASTILLO Metoprolol Tartrate (Metoprolol Tartrate) 25 Mg Tablet, 25 MG PO BID for BP for 30 Days, #60 Prescribed by: ISSA MERCADO MD on 01/04/201134 Last Action: Continued on 07/17/201637 by MINDY BARRERA APRN Multivits,Ca,Minerals/Iron/Fa (Thera-M Tablet) 1 Each Tablet, 1 TAB PO DAILY for supplement for 30 Days, #30 Prescribed by: ISSA MERCADO MD on 01/04/201134 [Humalog 75-25] , 20 UNITS SQ BIDWMEALS for DIABETES, (Reported) Entered as Reported by: SAM OMALLEY on 01/26/20 1510 Scheduled PRN Acetaminophen (Tylenol) 325 Mg Tablet, 650 MG PO PRN Q6HRS PRN for FEVER, #30 Prescribed by: KIKO HUERTA MD on 07/19/171803 Docusate Sodium (Colace) 100 Mg Capsule, 100 MG PO PRN DAILY PRN for CONSTIPATION, #30 Prescribed by: KIKO HUERTA MD on 07/19/171803 Last Action: Reviewed on 07/16/201758 by EDUARD CASTILLO Discontinued Medications Amlodipine Besylate (Amlodipine Besylate) 2.5 Mg Tablet, 2.5 MG PO DAILY for , (Reported) Entered as Reported by: ANTOINE DE LA GARZA RN on 01/25/202248 Last Action: Discontinued on 07/16/201801 by EDUARD CASTILLO Duloxetine Hcl (Duloxetine Hcl) 20 Mg Capsule.dr, 20 MG PO DAILY for , (Reported) Entered as Reported by: ANTOINE DE LA GARZA RN on 01/25/202248 Last Action: Discontinued on 07/16/201806 by EDUARD CASTILLO Fenofibrate Nanocrystallized (Fenofibrate) 145 Mg Tablet, 145 MG PO DAILY for , (Reported) Entered as Reported by: ANTOINE DE LA GARZA RN on 01/25/202248 Last Action: Discontinued on 07/16/201801 by EDUARD CASTILLO Lisinopril (Lisinopril) 20 Mg Tablet, 20 MG PO DAILY for , (Reported) Entered as Reported by: ANTOINE DE LA GARZA RN on 01/25/202248 Last Action: Discontinued on 07/16/201801 by EDUARD CASTILLO Metformin Hcl (Metformin Hcl) 500 Mg Tablet, 1,000 MG PO BIDWMEALS for ANTI-D IABETIC, Ref 0 (Reported) Entered as Reported by: SAM OMALLEY on 01/26/20 1510 Last Action: Discontinued on 07/16/201758 by EDUARD CASTILLO Justicifation of Admission Dx: Justifications for Admission: Justification of Admission Dx: Yes Respiratory Failure: Severe Resp Distress HOSSEIN CHEN MD Jul 17, 2020 22:34
[2020-07-18] MEDS ORDERED: INSULIN LISPRO 300 UNITS/3 ML VIAL. SQ SCH (08:00)
[2020-07-18] MEDS ORDERED: amLODIPine BESYLATE 5 MG TABLET PO SCH (09:00)
== END 2020-07-17 21:50 | disposition left against medical advice (07) | DRG 291 ==
LOC: ER 11:18 → 6 SOUTH 13:30
PROVIDERS: ADMIT Internal Medicine; ATTEND Internal Medicine
PROC: 30233N1 Transfusion of Nonautologous Red Blood Cells into Peripheral Vein, Percutaneous Approach (ICD-10-PCS; principal; 2020-07-16)
DX: I13.0 Hypertensive heart and chronic kidney disease with heart failure and stage 1 through stage 4 chronic kidney disease, or unspecified chronic kidney disease (principal); N17.0 Acute kidney failure with tubular necrosis; J96.01 Acute respiratory failure with hypoxia; I50.43 Acute on chronic combined systolic (congestive) and diastolic (congestive) heart failure; N39.0 Urinary tract infection, site not specified; D56.9 Thalassemia, unspecified; E03.9 Hypothyroidism, unspecified; E10.22 Type 1 diabetes mellitus with diabetic chronic kidney disease; E10.40 Type 1 diabetes mellitus with diabetic neuropathy, unspecified; E10.621 Type 1 diabetes mellitus with foot ulcer; E87.5 Hyperkalemia; J45.909 Unspecified asthma, uncomplicated; L97.509 Non-pressure chronic ulcer of other part of unspecified foot with unspecified severity; N18.9 Chronic kidney disease, unspecified; Z20.828 Contact with and (suspected) exposure to other viral communicable diseases; Z79.4 Long term (current) use of insulin; Z82.49 Family history of ischemic heart disease and other diseases of the circulatory system; Z83.3 Family history of diabetes mellitus; Z87.440 Personal history of urinary (tract) infections; F32.9 Major depressive disorder, single episode, unspecified; F41.9 Anxiety disorder, unspecified; G89.29 Other chronic pain; K21.9 Gastro-esophageal reflux disease without esophagitis; Z53.29 Procedure and treatment not carried out because of patient's decision for other reasons
CPT/HCPCS: 36415; 36600; 71045; 76770; 80053; 80061; 81001; 81025; 82805; 82962; 83605; 83880; 84484; 85007; 85025; 86850; 86900; 86901; 86920; 87040; 93005; 94640; 96361; 96374; 96375; 99291; J0610; J0696; J1815; J1940; J2930; P9016; G0378; U0003-CS

== ENCOUNTER 2021-01-06 18:26 | Emergency (ER) | payer OTHER ==
[~2021-01-06] VITALS: Ht 149.9 cm; Wt 70.0 kg
[~2021-01-06 18:26] MED LIST changes: +AMLO-186 PO; +DULO40CA2 PO; -LISI-334 PO; +LISI20TA18 PO; +LISI40TA6 PO
[2021-01-06 18:35] VITALS: BP 156/77
[2021-01-06] MEDS ORDERED: FLUORESCEIN OPHTH TEST STRIP. OS ONE (18:45)
[2021-01-06] MEDS ORDERED: TETRACAINE 0.5% OPHTH SOLUTION 4ML BOTTLE. OS ONE (18:45)
[2021-01-06] MEDS ORDERED: TOBR5DRO6 LEFTEYE (20:09)
[2021-01-06] MEDS ORDERED: KETO5DRO4 LEFTEYE (20:09)
--- NOTE | 2021-01-06 20:10 | PHYS DOC ---
Past Medical History Past Medical History: Asthma, Diabetes-Type I, Hypertension, UTI Additional Past Medical Histor: Neuropathy; sepsis Past Surgical History: , Other Additional Past Surgical Histo: "eyes" Smoking Status: Never Smoker Alcohol Use: None Drug Use: None General Adult EDM: Chief Complaint: EYE PROBLEMS HPI: HPI: Patient is a 35 year old female with history of hypertension, diabetes type 1, who presents to the ED today complaining of left eye swelling and redness that began yesterday. Patient states she was seen at [facility] where they put some medicine in her eye and was sent home. She states today she noted there is more swelling to the left eye. Denies any fever. Denies any vision loss. Review of Systems: Review of Systems: Constitutional: Denies fever or chills. [] Eyes: Reports left eye redness and swelling. Denies change in visual acuity. [] Musculoskeletal: Denies back pain or joint pain. [] Integument: Denies rash. [] Neurologic: Denies headache, focal weakness or sensory changes. [] Psychiatric: Denies depression or anxiety. [] Heart Score: Risk Factors: Risk Factors: DM, Current or recent (<one month) smoker, HTN, HLP, family history of CAD, obesity. Risk Scores: Score 0 - 3: 2.5% MACE over next 6 weeks - Discharge Home Score 4 - 6: 20.3% MACE over next 6 weeks - Admit for Clinical Observation Score 7 - 10: 72.7% MACE over next 6 weeks - Early Invasive Strategies Current Medications: Current Medications Medications (Trade) Dose Ordered Sig/Rafaela Start Time Stop Time Status Last Admin Dose Admin Fluorescein Sodium (Ful-Arelis) 1 strip 1X ONCE 01/06/21 18:45 01/06/21 18:46 DC Tetracaine HCl (Tetracaine) 1 drop 1X ONCE 01/06/21 18:45 01/06/21 18:46 DC Allergies: Allergies: Allergies Coded Allergies Type Severity Reaction Last Updated Verified No Known Drug Allergies 03/28/17 No Physical Exam: PE: Constitutional: Well developed, well nourished, no acute distress, non-toxic appearance. [] HENT: Normocephalic, atraumatic, bilateral external ears normal, oropharynx moist, no oral exudates, nose normal. [] Eyes: PERRLA, EOMI, Left upper eyelid with slight swelling, left conjunctive is slightly injected with clear drainage. Exam is difficult because patient is refusing to cooperate and open her left eye Tetracaine was applied in the left eye and the eye was stained with fluorescein. No obvious corneal abrasions were noted. Clear tearing noted. Skin: Warm, dry, no erythema, no rash. [] Back: No tenderness, no CVA tenderness. [] Extremities: No tenderness, no cyanosis, no clubbing, ROM intact, no edema. [] Neurologic: Alert and oriented X 3, normal motor function, normal sensory functi on, no focal deficits noted. [] Psychologic: Affect normal, judgement normal, mood normal. [] Current Patient Data: Vital Signs: Vital Signs Date Time Temp Pulse Resp B/P (MAP) Pulse Ox O2 Delivery O2 Flow Rate FiO2 01/06/21 18:35 98.8 92 16 156/77 (103) 100 Room Air 98.8 EKG: EKG: [] Radiology/Procedures: Radiology/Procedures: [] Course & Med Decision Making: Course & Med Decision Making Pertinent Labs and Imaging studies reviewed. (See chart for details) This is a 35-year-old female patient presenting to the ED today with left eye redness and swelling that began yesterday. She was apparently seen at and had eye medicine placed in her left eye. Exam difficult in the ED because patient keeps closing the eye during exam despite using tetracaine. No obvious injuries are noted. Discharged with tobramycin and Zaditor. Follow-up with o phthalmologist. Gus Disclaimer: Gus Disclaimer: This electronic medical record was generated, in whole or in part, using a voice recognition dictation system. Departure Departure Impression: Primary Impression: Bacterial conjunctivitis of left eye Additional Impression: Allergic conjunctivitis of left eye Disposition: 01 DC HOME SELF CARE/HOMELESS Condition: STABLE Referrals: SHUKRI DOWLING MD (PCP) Follow-up with your doctor next week SELENA WILD MD follow up next week Patient Instructions: Allergic Conjunctivitis, [id number], Bacterial Conjunctivitis Additional Instructions: Please use the prescribed pain medicines as ordered. Follow-up with the provided medical biller/coder next week as well as Dr. Dowling Scripts Tobramycin Ophth (TOBRAMYCIN OPHTH DROPS) 5 Ml Drops 1 DROP LEFTEYE QID for 7 Days, #5 ML 0 Refills Prov: LAW PACHECO APRN 01/06/21 Ketotifen Fumarate (ZADITOR) 5 Ml Drops 1 DROP LEFTEYE BID, #5 ML 1 Refill Prov: LAW PACHECO APRN 01/06/21 LAW PACHECO APRN Jan 06, 2021 20:10
== END 2021-01-06 20:20 | disposition home or self-care (01) ==
LOC: ER 18:26
DX: H10.12 Acute atopic conjunctivitis, left eye (principal); H10.89 Other conjunctivitis; E11.40 Type 2 diabetes mellitus with diabetic neuropathy, unspecified; J45.909 Unspecified asthma, uncomplicated; I10 Essential (primary) hypertension
CPT/HCPCS: 99283

== ENCOUNTER 2021-05-22 15:06 | Inpatient (IN) | payer OTHER ==
[~2021-05-22] VITALS: Ht 144.8 cm; Wt 31.8 kg
[~2021-05-22 15:06] MED LIST changes: +KETO5DRO4 LEFTEYE; -MULT1TAB90 PO; +MULT1TAB92 PO; +TOBR5DRO6 LEFTEYE; +VANC1VIA34 MC; -VANC1VIA38 MC
--- NOTE | 2021-05-22 15:51 | PHYS DOC ---
Past Medical History Past Medical History: Asthma, Diabetes-Type I, Hypertension, UTI Additional Past Medical Histor: Neuropathy; sepsis Past Surgical History: , Other Additional Past Surgical Histo: "eyes" Smoking Status: Never Smoker Alcohol Use: None Drug Use: None General Adult EDM: Chief Complaint: KNEE SWELLING HPI: HPI: Patient is a 35 year old female patient with a 3-day history of left knee swelling. Patient states she does not know what happened to her, just popped up. Patient denies any history of trauma, falls, or abnormalities. Patient reportedly had broken her feet approximately 1 year ago, since that time patient has not been ambulatory at home, and family helps move her around. Patient that she has not take any medication. States she does think she had a fever yesterday, she did feel really warm yesterday. Patient also indicates her knee does feel a lot warmer today than usual. Review of Systems: Review of Systems: Constitutional: Denies chills. Patient has received endorse fever yesterday and the day prior. Respiratory: Denies cough or shortness of breath. [] Cardiovascular: Denies chest pain or edema. [] GI: Denies abdominal pain, nausea, vomiting, bloody stools or diarrhea. [] Musculoskeletal: Denies back pain or joint pain. [] States discomfort noted to her left knee, with swelling noted as well, states chronic recurring bilateral foot pain since her bilateral foot fracture last year. Integument: Denies rash. [] Neurologic: Denies headache, focal weakness or sensory changes. [] Endocrine: Denies polyuria or polydipsia. [] Lymphatic: Denies swollen glands. [] Psychiatric: Denies depression or anxiety. [] Heart Score: C/O Chest Pain: No Risk Factors: Risk Factors: DM, Current or recent (<one month) smoker, HTN, HLP, family history of CAD, obesity. Risk Scores: Score 0 - 3: 2.5% MACE over next 6 weeks - Discharge Home Score 4 - 6: 20.3% MACE over next 6 weeks - Admit for Clinical Observation Score 7 - 10: 72.7% MACE over next 6 weeks - Early Invasive Strategies Allergies: Allergies: Allergies Coded Allergies Type Severity Reaction Last Updated Verified No Known Drug Allergies 03/28/17 No Physical Exam: PE: Constitutional: no acute distress, non-toxic appearance. [] Emaciated, chronically frail HENT: Normocephalic, atraumatic, , oropharynx moist, no oral exudates, nose normal. [] Eyes: PERRLA, EOMI, conjunctiva normal, no discharge. [] Neck: Normal range of motion, no tenderness, supple, no stridor. [] Cardiovascular:Heart rate regular rhythm, no murmur [] Lungs & Thorax: Bilateral breath sounds clear to auscultation [] Abdomen: Bowel sounds normal, soft, no tenderness, no masses, no pulsatile masses. [] Skin: Warm, dry, no erythema, no rash. [] Left knee with moderate swelling, circumferential around knee, with tenderness, lesion noted to medial aspect 10 o'clock position of knee, 1 cm diameter. No purulence noted. No bleeding noted Back: No tenderness, no CVA tenderness. [] Extremities: No tenderness, no cyanosis, no clubbing, ROM intact, no edema. [] Extremities with minimal noted musculature, atrophy generalized. Bilateral feet deformed, with skin lesions noted to toes, chronic. Full range of motion to right knee on passive motion. Decreased ROM with due to discomfort to left knee on passive motion. Dialysis shunt to left arm/chest. Neurologic: Alert and oriented X 3, normal motor function, normal sensory function, no focal deficits noted. [] Psychologic: Affect normal, judgement normal, mood normal. [] Current Patient Data: Vital Signs: Vital Signs Date Time Temp Pulse Resp B/P (MAP) Pulse Ox O2 Delivery O2 Flow Rate FiO2 05/22/21 15:28 100.0 78 18 123/60 (81) 100 Room Air 100.0 EKG: EKG: [] Radiology/Procedures: Radiology/Procedures: view left knee dated 05/22/2021. No comparison available. CLINICAL INDICATION: Pain. FINDINGS: 4 view left knee show a prominent osteochondral defect or cortical erosion in volving the lateral femoral condyle. There are adjacent bone fragments. There is also some flattening of the articular surface of the lateral tibial plateau with valgus deformity at the knee. There is associated soft tissue prominence posteriorly. No definite joint effusion. Findings are new from prior study. There is a small exostosis at the proximal fibula, unchanged. No additional bony abnormality. IMPRESSION: 1. Large osteochondral defect with destructive changes of the lateral femoral condyle, new from prior study. There is associated soft tissue abnormality posteriorly. Etiology is indeterminate. Consider infectious or neoplastic etiology. Spontaneous osteonecrosis is another possibility. Suggest MRI with and without contrast for better evaluation. Electronically signed by: Arsen Cordova MD (05/22/2021 5:38 PM) [facility] [place] DICTATED and SIGNED BY: ARSEN CORDOVA MD DATE: 05/22/21 [id number] [] Course & Med Decision Making: Course & Med Decision Making Pertinent Labs and Imaging studies reviewed. (See chart for details) []@1750 Will reach out to hospitalist for admission, requests reaching out to Ortho prior to admission here @[address] Vee, ortho, recommends tap knee, cultures, gram stain, cell count. Will consult for admission @[address] Mary, agrees to admission. Will see patient. @[address] Brown, regarding tapping knee, will evaluate patient. @192 Dr Brown obtains consent for procedure via language line and roller structural mill, agreed by patient. @193 Dr Brown discussed with Dr Vee, ortho, concerned over Cellulitis and will hold knee tap at this time. Ortho in agreement with plan. Will provide antibiotics and plan for admission. @2029 patient reporting she wants to leave at this time, states she does not want to stay in the hospital overnight and she just wants to take a Tylenol at home. Using roller structural mill phone, discussed importance of being evaluated in the hospital by the specialist and taking IV antibiotics for her infection, with risks including loss of limb and loss of life. Patient reporting she does not care she just wants to go home with her family and she just wants to take a Tylenol. Advised patient again of importance to stay in the hospital for treatment, to which patient again refuses, patient reports she just wants to go home. At this time, patient hangs up roller structural mill phone, pulled out IV, and states in Norwegian she does not want to stay @2037 Dr. uCnningham at bedside @2039 Patient continues to refuse admission, refuses to talk to hospitalist. Signs out AMA, aware of risks of leaving AMA including loss of limb, loss of life. Dragon Disclaimer: Dragon Disclaimer: This electronic medical record was generated, in whole or in part, using a voice recognition dictation system. Departure Departure Impression: Primary Impression: Left knee pain Qualified Codes: M25.562 - Pain in left knee Additional Impressions: SIRS (systemic inflammatory response syndrome) Chronic renal failure Qualified Codes: N18.9 - Chronic kidney disease, unspecified Disposition: LEFT AGAINST MEDICAL ADVICE Admitting Physician: CHIKIS Condition: STABLE Referrals: SHUKRI DOWLING MD (PCP) KEE KAUFMAN APRN May 22, 2021 15:51
[2021-05-22 17:19] LABS: BASO % 0 % (0-3); EOS % 0 % (0-3); HEMOGLOBIN 9.6 g/dL (12.0-15.5); LYMPH # 0.6 x10^3/uL (1.0-4.8); LYMPH % 3 % (24-48); MEAN CORPUSCULAR HEMOGLOBIN 26 pg (25-35); MEAN CORPUSCULAR HGB CONC 31 g/dL (31-37); MEAN CORPUSCULAR VOLUME 85 fL (79-100); MONO # 0.7 x10^3/uL (0.0-1.1); MONO % 4 % (0-9); NEUT # 16.9 x10^3/uL (1.8-7.7); NEUT % 93 % (31-73); PLATELET COUNT 236 x10^3/uL (140-400); RED BLOOD COUNT 3.63 x10^6/uL (3.50-5.40); RED CELL DISTRIBUTION WIDTH 19.5 % (11.5-14.5); WHITE BLOOD COUNT 18.2 x10^3/uL (4.0-11.0)
[2021-05-22 17:24] LABS: CALCIUM 8.7 mg/dL (8.5-10.1); CREATININE 3.2 mg/dL (0.6-1.0); GFR 16.6; POTASSIUM 4.2 mmol/L (3.5-5.1)
[2021-05-22 17:39] LABS: ALBUMIN 2.3 g/dL (3.4-5.0); ALBUMIN/GLOBULIN RATIO 0.5 (1.0-1.7); TOTAL PROTEIN 7.4 g/dL (6.4-8.2)
--- NOTE | 2021-05-22 17:40 | RAD ---
4 view left knee dated 05/22/2021. No comparison available. CLINICAL INDICATION: Pain. FINDINGS: 4 view left knee show a prominent osteochondral defect or cortical erosion involving the lateral femo ral condyle. There are adjacent bone fragments. There is also some flattening of the articular surfac e of the lateral tibial plateau with valgus deformity at the knee. There is associated soft tissue pr ominence posteriorly. No definite joint effusion. Findings are new from prior study. There is a small exostosis at the proximal fibula, unchanged. No additional bony abnormality. IMPRESSION: 1. Large osteochondral defect with destructive changes of the lateral femoral condyle, new from prior study. There is associated soft tissue abnormality posteriorly. Etiology is indeterminate. Consider infectious or neoplastic etiology. Spontaneous osteonecrosis is another possibility. Suggest MRI with and without contrast for better evaluation. Electronically signed by: Arsen Cordova MD (05/22/2021 5:38 PM) [facility]
[2021-05-22 18:39] VITALS: BP 136/61
--- NOTE | 2021-05-22 19:03 | RAD ---
Single view chest dated 05/22/2021 6:59 PM: COMPARISON: 07/17/2020 Clinical Indication: Knee pain.. Findings: Single upright portable exam of the chest was performed. Heart and mediastinal contours are stable. T here is some patchy airspace disease at the right lung base with prominent interstitial markings. Connor nting of the right costophrenic sulcus. There is also mild patchy density at the retrocardiac left ba se. No pneumothorax. Findings are improved from the 2019 exam. IMPRESSION: 1. Mild bibasilar airspace disease, atelectasis versus pneumonia. There is possible small right pleur al effusion. Electronically signed by: Arsen Cordova MD (05/22/2021 7:00 PM) [facility]
[2021-05-22] MEDS ORDERED: VANCOMYCIN PER PHARMACY MC PRN (19:45)
[2021-05-22] MEDS ORDERED: cefTRIAXone IV Push 1 GM VIAL. IVP ONE (19:45)
[2021-05-22] MEDS ORDERED: VANCOMYCIN 750 MG in IV NORMAL SALINE 250ML 250 ML IV ONE (20:30)
--- NOTE | 2021-05-22 20:56 | PDOC1 ---
History and Physical Date of Admission Date of Admission DATE: 05/22/21 TIME: 20:42 Identification/Chief Complaint Chief Complaint Left knee pain Source Source: Chart review, Patient History of Present Illness History of Present Illness Ms Lenz is a 35 yo F Mongolian-speaking only w/ PMHx DM, HTN, neuropathy who presents with left thigh and knee swelling with associated pain. Patient rates her pain a 10 out of 10. She notes bilateral electric pains in legs L>R and notes history of chronic neuropathy. Over the past 3 days notes left knee swelling. Patient states she does not know what happened to her, just popped up. Patient denies any history of trauma, falls, or abnormalities. Patient had been hospitalized 1 year ago, left AMA, did have left leg pain at that time, had radiograph and arterial doppler, but did not stay in the hospital for further care. Since that time patient has not been ambulatory at home, and family helps move her around. Patient that she has not take any medication. States she does think she had a fever yesterday, she did feel really warm yesterday. Patient also indicates her knee does feel a lot warmer today than usual. She denies and recent sick contacts or travel. On ROS noted no chest pain, shortness of air, fever, abdominal pain, nausea, vomiting, headache, dizziness, syncope, vision changes, back pain, dysuria. She denies any injury to her legs. She frequently tries to speak Mauritanian and use family for translation and tries to hand me back the [employer]hear operator phone. WBC 18.2, Hb 9.6, platelets 236, NA 133, K4.2, BUN 22, CR 3.2, lactic acid 0.7, bilirubin 1, AST 1176, ALT 785, alkaline phosphatase 241, albumin 2.3 Chest radiograph with bibasilar airspace disease Left knee radiograph with large osteochondral defect with destructive changes of the lateral femoral condyle, new from prior study. Admitted for further care due to inability to ambulate Past Medical History Cardiovascular: HTN Pulmonary: Asthma CENTRAL NERVOUS SYSTEM: Periperal neuropathy GI: GERD Heme/Onc: Anemia NOS Psych: Anxiety, Depression Renal/: Chronic renal insuff Endocrine: Diabetes, Hypothyroidism Past Surgical History Past Surgical History: No pertinent history Family History Family History: Other Social History Smoke: No ALCOHOL: none Drugs: None Current Problem List Problem List Problems Medical Problems: (1) Chronic renal failure Status: Acute (2) Left knee pain Status: Acute (3) SIRS (systemic inflammatory response syndrome) Status: Acute Current Medications Current Medications Current Medications Vancomycin HCl (Vanco Per Pharmacy) 1 each PRN DAILY PRN MC SEE COMMENTS; Start 05/22/21 at 19:45; Status UNV Ceftriaxone Sodium (Rocephin) 1 gm 1X ONCE IVP ; Start 05/22/21 at 19:45; Stop 05/22/21 at 19:47; Status DC Vancomycin HCl 750 mg/Sodium Chloride 250 ml @ 250 mls/hr 1X ONCE IV ; Start 05/22/21 at 20:30; Stop 05/22/21 at 21:29 Active Scripts Active Tobramycin Ophth Drops (Tobramycin Sulfate) 5 Ml Drops 1 Drop LEFTEYE QID 7 Days Zaditor (Ketotifen Fumarate) 5 Ml Drops 1 Drop LEFTEYE BID Thera-M Tablet (Multivits,Ca,Minerals/Iron/Fa) 1 Each Tablet 1 Tab PO DAILY 30 Days Synthroid (Levothyroxine Sodium) 50 Mcg Tablet 50 Mcg PO DAILY06 30 Days Metoprolol Tartrate 25 Mg Tablet 25 Mg PO BID 30 Days Levemir Flextouch (Insulin Detemir) 100 Unit/1 Ml Insuln.pen 20 Units SQ QHS Colace (Docusate Sodium) 100 Mg Capsule 100 Mg PO PRN DAILY PRN Tylenol (Acetaminophen) 325 Mg Tablet 650 Mg PO PRN Q6HRS PRN Reported Duloxetine HCl 40 Mg Capsule.dr 1 Cap PO DAILY 30 Days Lisinopril 40 Mg Tablet 40 Mg PO DAILY Amlodipine Besylate 5 Mg Tablet 5 Mg PO DAILY Gabapentin (Gabapentin) 300 Mg Capsule 3 Cap PO Q12HR [Humalog 75-25] 20 Units SQ BIDWMEALS Allergies Allergies: Coded Allergies: No Known Drug Allergies (Unverified , 03/28/17) ROS General: YES: Fatigue, Malaise; No: Chills, Night Sweats, Appetite, Other PSYCHOLOGICAL ROS: No: Anxiety, Behavioral Disorder, Concentration difficultie, Decreased libido, Depression, Disorientation, Hallucinations, Hostility, Irritablity, Memory difficulties, Mood Swings, Obsessive thoughts, Physical abuse, Sexual abuse, Sleep disturbances, Suicidal ideation, Other Eyes: Yes Blurry vision; No Decreased vision, No Double vision, No Dry eyes, No Excessive tearing, No Eye Pain, No Itchy Eyes, No Loss of vision, No Photophobia, No Scotomata, No Uses contacts, No Uses glasses, No Other HEENT: No: Heacaches, Visual Changes, Hearing change, Nasal congestion, Nasal discharge, Oral lesions, Sinus pain, Sore Throat, Epistaxis, Sneezing, Snoring, Tinnitus, Vertigo, Vocal changes, Other ALLERGY AND IMMUNOLOGY: No: Hives, Insect Bite Sensitivity, Itchy/Watery Eyes, Nasal Congestion, Post Nasal Drip, Seasonal Allergies, Other Hematological and Lymphatic: No: Bleeding Problems, Blood Clots, Blood Transfusions, Brusing, Night Sweats, Pallor, Swollen Lymph Nodes, Other ENDOCRINE: No: Breast Changes, Galactorrhea, Hair Pattern Changes, Hot Flashes, Malaise/lethargy, Mood Swings, Palpitations, Polydipsia/polyuria, Skin Changes, Temperature Intolerance, Unexpected Weight Changes, Other Breast: No New/Changing Breast Lumps, No Nipple changes, No Nipple discharge, No Other Respiratory: No: Cough, Hemoptysis, Orthopnea, Pleuritic Pain, Shortness of breath, SOB with excertion, Sputum Changes, Stridor, Tachypnea, Wheezing, Other Cardiovascular: No Chest Pain, No Palpitations, No Orthopnea, No Paroxysmal Noc. Dyspnea, No Edema, No Lt Headedness, No Other Gastrointestinal: No Nausea, No Vomiting, No Abdominal Pain, No Diarrhea, No Constipation, No Melena, No Hematochezia, No Other Genitourinary: No Dysuria, No Frequency, No Incontinence, No Hematuria, No Retention, No Discharge, No Urgency, No Pain, No Flank Pain, No Other, No , No , No , No , No , No , No Musculoskeletal: Yes Gait Disturbance, Yes Joint Pain, Yes Joint Stiffness; No Joint Swelling, No Muscle Pain, No Muscular Weakness, No Pain In:, No Swelling In:, No Other Neurological: No Behavorial Changes, No Bowel/Bladder ControlChng, No Conf usion, No Dizziness, No Gait Disturbance, No Headaches, No Impaired Coord/balance, No Memory Loss, No Numbness/Tingling, No Seizures, No Speech Problems, No Tremors, No Visual Changes, No Weakness, No Other Skin: No Dry Skin, No Eczema, No Hair Changes, No Lumps, No Mole Changes, No Mottling, No Nail Changes, No Pruritus, No Rash, No Skin Lesion Changes, No Ot her, No Acne Physical Exam General: Alert, Oriented X3, Cooperative, moderate distress HEENT: Atraumatic, PERRLA, EOMI, Mucous membr. moist/pink Lungs: Clear to auscultation, Normal air movement Heart: S1S2, RRR, no thrills, no rubs, no gallops, no murmurs Abdomen: Normal bowel sounds, Soft, No tenderness, No hepatosplenomegaly, No masses Rectal Exam: not examined Extremities: Other (Left knee tender, swollen) Skin: No rashes, No breakdown, No significant lesion Neuro: Normal speech, Normal tone, Other (Decreased sensation bilaterally in glove and stocking distribution) Psych/Mental Status: Mental status NL, Mood NL Vitals Vitals Vital Signs Date Time Temp Pulse Resp B/P (MAP) Pulse Ox O2 Delivery O2 Flow Rate FiO2 05/22/21 18:39 76 16 136/61 (86) 92 Room Air 05/22/21 15:28 100.0 100.0 Labs Labs Laboratory Tests Test 05/22/21 17:00 White Blood Count 18.2 x10^3/uL (4.0-11.0) Red Blood Count 3.63 x10^6/uL (3.50-5.40) Hemoglobin 9.6 g/dL (12.0-15.5) Hematocrit 31.0 % (36.0-47.0) Mean Corpuscular Volume 85 fL (79-100) Mean Corpuscular Hemoglobin 26 pg (25-35) Mean Corpuscular Hemoglobin Concent 31 g/dL (31-37) Red Cell Distribution Width 19.5 % (11.5-14.5) Platelet Count 236 x10^3/uL (140-400) Neutrophils (%) (Auto) 93 % (31-73) Lymphocytes (%) (Auto) 3 % (24-48) Monocytes (%) (Auto) 4 % (0-9) Eosinophils (%) (Auto) 0 % (0-3) Basophils (%) (Auto) 0 % (0-3) Neutrophils # (Auto) 16.9 x10^3/uL (1.8-7.7) Lymphocytes # (Auto) 0.6 x10^3/uL (1.0-4.8) Monocytes # (Auto) 0.7 x10^3/uL (0.0-1.1) Eosinophils # (Auto) 0.0 x10^3/uL (0.0-0.7) Basophils # (Auto) 0.0 x10^3/uL (0.0-0.2) Sodium Level 133 mmol/L (136-145) Potassium Level 4.2 mmol/L (3.5-5.1) Chloride Level 98 mmol/L (98-107) Carbon Dioxide Level 25 mmol/L (21-32) Anion Gap 10 (6-14) Blood Urea Nitrogen 22 mg/dL (7-20) Creatinine 3.2 mg/dL (0.6-1.0) Estimated GFR (Cockcroft-Gault) 16.6 BUN/Creatinine Ratio 7 (6-20) Glucose Level 93 mg/dL (70-99) Lactic Acid Level 0.7 mmol/L (0.4-2.0) Calcium Level 8.7 mg/dL (8.5-10.1) Total Bilirubin 1.0 mg/dL (0.2-1.0) Aspartate Amino Transf (AST/SGOT) 1176 U/L (15-37) Alanine Aminotransferase (ALT/SGPT) 785 U/L (14-59) Alkaline Phosphatase 241 U/L (46-116) Total Protein 7.4 g/dL (6.4-8.2) Albumin 2.3 g/dL (3.4-5.0) Albumin/Globulin Ratio 0.5 (1.0-1.7) Laboratory Tests Test 05/22/21 17:00 White Blood Count 18.2 x10^3/uL (4.0-11.0) Red Blood Count 3.63 x10^6/uL (3.50-5.40) Hemoglobin 9.6 g/dL (12.0-15.5) Hematocrit 31.0 % (36.0-47.0) Mean Corpuscular Volume 85 fL (79-100) Mean Corpuscular Hemoglobin 26 pg (25-35) Mean Corpuscular Hemoglobin Concent 31 g/dL (31-37) Red Cell Distribution Width 19.5 % (11.5-14.5) Platelet Count 236 x10^3/uL (140-400) Neutrophils (%) (Auto) 93 % (31-73) Lymphocytes (%) (Auto) 3 % (24-48) Monocytes (%) (Auto) 4 % (0-9) Eosinophils (%) (Auto) 0 % (0-3) Basophils (%) (Auto) 0 % (0-3) Neutrophils # (Auto) 16.9 x10^3/uL (1.8-7.7) Lymphocytes # (Auto) 0.6 x10^3/uL (1.0-4.8) Monocytes # (Auto) 0.7 x10^3/uL (0.0-1.1) Eosinophils # (Auto) 0.0 x10^3/uL (0.0-0.7) Basophils # (Auto) 0.0 x10^3/uL (0.0-0.2) Sodium Level 133 mmol/L (136-145) Potassium Level 4.2 mmol/L (3.5-5.1) Chloride Level 98 mmol/L (98-107) Carbon Dioxide Level 25 mmol/L (21-32) Anion Gap 10 (6-14) Blood Urea Nitrogen 22 mg/dL (7-20) Creatinine 3.2 mg/dL (0.6-1.0) Estimated GFR (Cockcroft-Gault) 16.6 BUN/Creatinine Ratio 7 (6-20) Glucose Level 93 mg/dL (70-99) Lactic Acid Level 0.7 mmol/L (0.4-2.0) Calcium Level 8.7 mg/dL (8.5-10.1) Total Bilirubin 1.0 mg/dL (0.2-1.0) Aspartate Amino Transf (AST/SGOT) 1176 U/L (15-37) Alanine Aminotransferase (ALT/SGPT) 785 U/L (14-59) Alkaline Phosphatase 241 U/L (46-116) Total Protein 7.4 g/dL (6.4-8.2) Albumin 2.3 g/dL (3.4-5.0) Albumin/Globulin Ratio 0.5 (1.0-1.7) Images Images Chest radiograph: Single upright portable exam of the chest was performed. Heart and mediastinal contours are stable. There is some patchy airspace disease at the right lung base with prominent interstitial markings. Blunting of the right costophrenic sulcus. There is also mild patchy density at the retrocardiac left base. No pneumothorax. Findings are improved from the 2020 exam. IMPRESSION: 1. Mild bibasilar airspace disease, atelectasis versus pneumonia. There is possible small right pleural effusion. Left knee radiograph: 4 view left knee show a prominent osteochondral defect or cortical erosion in volving the lateral femoral condyle. There are adjacent bone fragments. There is also some flattening of the articular surface of the lateral tibial plateau with valgus deformity at the knee. There is associated soft tissue prominence posteriorly. No definite joint effusion. Findings are new from prior study. There is a small exostosis at the proximal fibula, unchanged. No additional bony abnormality. IMPRESSION: 1. Large osteochondral defect with destructive changes of the lateral femoral condyle, new from prior study. There is associated soft tissue abnormality posteriorly. Etiology is indeterminate. Consider infectious or neoplastic etiology. Spontaneous osteonecrosis is another possibility. Suggest MRI with and without contrast for better evaluation. VTE Prophylaxis Ordered VTE Prophylaxis Devices: Yes VTE Pharmacological Prophylaxi: Yes Assessment/Plan Assessment/Plan A/P: Left knee pain - large osteochondral defect with destructive changes of the lateral femoral condyle - infectious or neoplastic etiology. Spontaneous osteonecrosis is another possibility. Left knee cellulitis - Ortho consulted for possible biopsy, antibiotics after. Hyponatremia - likely from hypovolemia DM I - Insulin ordered - a1c 6.8 BRANDI - vasomotor nephropathy - may have CKD with last Cr 1.2 Transaminitis - will check hepatitis, abdominal imaging. NEUROPATHY - likely diabetic in nature Possible anemia of chronic disease - given her extremely small body habitus and limited muscle mass a congenital or developmental nutrition disorder or thalassemia is likely FEN - ADA diet PPX - heparin FULL CODE Dispo - inpatient Justifications for Admission Other Justification HOSSEIN CHEN MD May 22, 2021 20:56
--- NOTE | 2021-05-22 22:52 | PDOC3 ---
Discharge Summary Visit Information Date of Admission: May 22, 2021 Date of Discharge: May 22, 2021 Admitting Diagnosis: Intractable left knee pain Final Diagnosis Problems Medical Problems: (1) Chronic renal failure Status: Acute (2) Left knee pain Status: Acute (3) SIRS (systemic inflammatory response syndrome) Status: Acute Brief Hospital Course Allergies Allergies Coded Allergies Type Severity Reaction Last Updated Verified No Known Drug Allergies 03/28/17 No Vital Signs Vital Signs Date Time Temp Pulse Resp B/P (MAP) Pulse Ox O2 Delivery O2 Flow Rate FiO2 05/22/21 18:39 76 16 136/61 (86) 92 Room Air 05/22/21 15:28 100.0 100.0 Lab Results Laboratory Tests Test 05/22/21 17:00 White Blood Count 18.2 x10^3/uL (4.0-11.0) Red Blood Count 3.63 x10^6/uL (3.50-5.40) Hemoglobin 9.6 g/dL (12.0-15.5) Hematocrit 31.0 % (36.0-47.0) Mean Corpuscular Volume 85 fL (79-100) Mean Corpuscular Hemoglobin 26 pg (25-35) Mean Corpuscular Hemoglobin Concent 31 g/dL (31-37) Red Cell Distribution Width 19.5 % (11.5-14.5) Platelet Count 236 x10^3/uL (140-400) Neutrophils (%) (Auto) 93 % (31-73) Lymphocytes (%) (Auto) 3 % (24-48) Monocytes (%) (Auto) 4 % (0-9) Eosinophils (%) (Auto) 0 % (0-3) Basophils (%) (Auto) 0 % (0-3) Neutrophils # (Auto) 16.9 x10^3/uL (1.8-7.7) Lymphocytes # (Auto) 0.6 x10^3/uL (1.0-4.8) Monocytes # (Auto) 0.7 x10^3/uL (0.0-1.1) Eosinophils # (Auto) 0.0 x10^3/uL (0.0-0.7) Basophils # (Auto) 0.0 x10^3/uL (0.0-0.2) Sodium Level 133 mmol/L (136-145) Potassium Level 4.2 mmol/L (3.5-5.1) Chloride Level 98 mmol/L (98-107) Carbon Dioxide Level 25 mmol/L (21-32) Anion Gap 10 (6-14) Blood Urea Nitrogen 22 mg/dL (7-20) Creatinine 3.2 mg/dL (0.6-1.0) Estimated GFR (Cockcroft-Gault) 16.6 BUN/Creatinine Ratio 7 (6-20) Glucose Level 93 mg/dL (70-99) Lactic Acid Level 0.7 mmol/L (0.4-2.0) Calcium Level 8.7 mg/dL (8.5-10.1) Total Bilirubin 1.0 mg/dL (0.2-1.0) Aspartate Amino Transf (AST/SGOT) 1176 U/L (15-37) Alanine Aminotransferase (ALT/SGPT) 785 U/L (14-59) Alkaline Phosphatase 241 U/L (46-116) Total Protein 7.4 g/dL (6.4-8.2) Albumin 2.3 g/dL (3.4-5.0) Albumin/Globulin Ratio 0.5 (1.0-1.7) Laboratory Tests Test 05/22/21 17:00 White Blood Count 18.2 x10^3/uL (4.0-11.0) Red Blood Count 3.63 x10^6/uL (3.50-5.40) Hemoglobin 9.6 g/dL (12.0-15.5) Hematocrit 31.0 % (36.0-47.0) Mean Corpuscular Volume 85 fL (79-100) Mean Corpuscular Hemoglobin 26 pg (25-35) Mean Corpuscular Hemoglobin Concent 31 g/dL (31-37) Red Cell Distribution Width 19.5 % (11.5-14.5) Platelet Count 236 x10^3/uL (140-400) Neutrophils (%) (Auto) 93 % (31-73) Lymphocytes (%) (Auto) 3 % (24-48) Monocytes (%) (Auto) 4 % (0-9) Eosinophils (%) (Auto) 0 % (0-3) Basophils (%) (Auto) 0 % (0-3) Neutrophils # (Auto) 16.9 x10^3/uL (1.8-7.7) Lymphocytes # (Auto) 0.6 x10^3/uL (1.0-4.8) Monocytes # (Auto) 0.7 x10^3/uL (0.0-1.1) Eosinophils # (Auto) 0.0 x10^3/uL (0.0-0.7) Basophils # (Auto) 0.0 x10^3/uL (0.0-0.2) Sodium Level 133 mmol/L (136-145) Potassium Level 4.2 mmol/L (3.5-5.1) Chloride Level 98 mmol/L (98-107) Carbon Dioxide Level 25 mmol/L (21-32) Anion Gap 10 (6-14) Blood Urea Nitrogen 22 mg/dL (7-20) Creatinine 3.2 mg/dL (0.6-1.0) Estimated GFR (Cockcroft-Gault) 16.6 BUN/Creatinine Ratio 7 (6-20) Glucose Level 93 mg/dL (70-99) Lactic Acid Level 0.7 mmol/L (0.4-2.0) Calcium Level 8.7 mg/dL (8.5-10.1) Total Bilirubin 1.0 mg/dL (0.2-1.0) Aspartate Amino Transf (AST/SGOT) 1176 U/L (15-37) Alanine Aminotransferase (ALT/SGPT) 785 U/L (14-59) Alkaline Phosphatase 241 U/L (46-116) Total Protein 7.4 g/dL (6.4-8.2) Albumin 2.3 g/dL (3.4-5.0) Albumin/Globulin Ratio 0.5 (1.0-1.7) Brief Hospital Course Ms Lenz is a 35 yo F Indonesian-speaking only w/ PMHx DM, HTN, neuropathy who presents with left thigh and knee swelling with associated pain. Patient rates her pain a 10 out of 10. She notes bilateral electric pains in legs L>R and notes history of chronic neuropathy. Over the past 3 days notes left knee swelling. Patient states she does not know what happened to her, just popped up. Patient denies any history of trauma, falls, or abnormalities. Patient had been hospitalized 1 year ago, left AMA, did have left leg pain at that time, had radiograph and arterial doppler, but did not stay in the hospital for further care. Since that time patient has not been ambulatory at home, and family helps move her around. Patient that she has not take any medication. States she does think she had a fever yesterday, she did feel really warm yesterday. Patient also indicates her knee does feel a lot warmer today than usual. She denies and recent sick contacts or travel. On ROS noted no chest pain, shortness of air, fever, abdominal pain, nausea, vomiting, headache, dizziness, syncope, vision changes, back pain, dysuria. She denies any injury to her legs. She frequently tries to speak Guamanian and use family for translation and tries to hand me back the [employer] buddhist monk phone. WBC 18.2, Hb 9.6, platelets 236, NA 133, K4.2, BUN 22, CR 3.2, lactic acid 0.7, bilirubin 1, AST 1176, ALT 785, alkaline phosphatase 241, albumin 2.3 Chest radiograph with bibasilar airspace disease Left knee radiograph with large osteochondral defect with destructive changes of the lateral femoral condyle, new from prior study. Admitted for further care due to inability to ambulate ED physician discussed with orthopedic surgery and recommended joint tap. Patient refused to have joint aspiration despite encouragement I offered sedation for this and encourage patients to stay but she via buddhist monk stated she wants "no medications". 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 Spontaneous osteonecrosis is another possibility. Left knee cellulitis - Ortho consulted for possible biopsy, antibiotics after. Hyponatremia - likely from hypovolemia DM I - Insulin ordered - a1c 6.8 BRANDI - vasomotor nephropathy - may have CKD with last Cr 1.2 Transaminitis - will check hepatitis, abdominal imaging. NEUROPATHY - likely diabetic in nature Possible anemia of chronic disease - given her extremely small body habitus and limited muscle mass a congenital or developmental nutrition disorder or thalassemia is likely Greater than 60 minutes spent on same day admit and d/c Discharge Information Condition at Discharge: Comment (AMA) Disposition/Orders: Other (AMA) Scheduled Amlodipine Besylate (Amlodipine Besylate) 5 Mg Tablet, 5 MG PO DAILY for hypertension, (Reported) Entered as Reported by: EDUARD CASTILLO on 07/16/20 180 Duloxetine HCl (Duloxetine HCl) 40 Mg Capsule.dr, 1 CAP PO DAILY for depression for 30 Days, #30 Ref 0 (Reported) Entered as Reported by: EDUARD CASTILLO on 07/16/20 180 Gabapentin (Gabapentin ) 300 Mg Capsule, 3 CAP PO Q12HR for NEUROGENIC PAIN, (Reported) Entered as Reported by: SAM OMALLEY on 01/26/20 1510 Insulin Detemir (Levemir Flextouch) 100 Unit/1 Ml Insuln.pen, 20 UNITS SQ QHS, #1 Prescribed by: KIKO HUERTA MD on 07/19/17 1804 Ketotifen Fumarate (Zaditor) 5 Ml Drops, 1 DROP LEFTEYE BID, #5 Ref 1 Prescribed by: Shilpa Pereira APRN on 01/06/212008 Levothyroxine Sodium (Synthroid) 50 Mcg Tablet, 50 MCG PO DAILY06 for hypothyroidism for 30 Days, #30 Prescribed by: ISSA MERCADO MD on 01/04/20 1135 Lisinopril (Lisinopril) 40 Mg Tablet, 40 MG PO DAILY for hypertension, (Reported) Entered as Reported by: EDUARD CASTILLO on 07/16/20 180 Metoprolol Tartrate (Metoprolol Tartrate) 25 Mg Tablet, 25 MG PO BID for BP for 30 Days, #60 Prescribed by: ISSA MERCADO MD on 01/04/20 1135 Multivits,Ca,Minerals/Iron/Fa (Thera-M Tablet) 1 Each Tablet, 1 TAB PO DAILY for supplement for 30 Days, #30 Prescribed by: ISSA MERCADO MD on 01/04/20 1135 Tobramycin Ophth (Tobramycin Ophth Drops) 5 Ml Drops, 1 DROP LEFTEYE QID for 7 Days, #5 Ref 0 Prescribed by: Shilpa Pereira APRN on 01/06/212008 [Humalog 75-25] , 20 UNITS SQ BIDWMEALS for DIABETES, (Reported) Entered as Reported by: SAM OMALLEY on 01/26/20 1510 Scheduled PRN Acetaminophen (Tylenol) 325 Mg Tablet, 650 MG PO PRN Q6HRS PRN for FEVER, #30 Prescribed by: KIKO HUERTA MD on 07/19/17 1804 Docusate Sodium (Colace) 100 Mg Capsule, 100 MG PO PRN DAILY PRN for CONSTIPATION, #30 Prescribed by: KIKO HUERTA MD on 07/19/171803 Justicifation of Admission Dx: Justifications for Admission: Justification of Admission Dx: Yes Respiratory Failure: Severe Resp Distress HOSSEIN CHEN MD May 22, 2021 22:52
== END 2021-05-22 19:00 | disposition left against medical advice (07) | DRG 564 ==
LOC: ER 15:06 → 4 NORTH 18:30
PROVIDERS: ADMIT Internal Medicine; ATTEND Internal Medicine
DX: M21.062 Valgus deformity, not elsewhere classified, left knee (principal); N17.0 Acute kidney failure with tubular necrosis; E87.1 Hypo-osmolality and hyponatremia; L03.116 Cellulitis of left lower limb; R65.10 Systemic inflammatory response syndrome (SIRS) of non-infectious origin without acute organ dysfunction; M87.9 Osteonecrosis, unspecified; E03.9 Hypothyroidism, unspecified; E10.22 Type 1 diabetes mellitus with diabetic chronic kidney disease; F32.9 Major depressive disorder, single episode, unspecified; Z53.29 Procedure and treatment not carried out because of patient's decision for other reasons; I12.9 Hypertensive chronic kidney disease with stage 1 through stage 4 chronic kidney disease, or unspecified chronic kidney disease; J45.909 Unspecified asthma, uncomplicated; E10.42 Type 1 diabetes mellitus with diabetic polyneuropathy; N18.9 Chronic kidney disease, unspecified; F41.9 Anxiety disorder, unspecified; K21.9 Gastro-esophageal reflux disease without esophagitis; D63.8 Anemia in other chronic diseases classified elsewhere; R74.01 Elevation of levels of liver transaminase levels; Z79.4 Long term (current) use of insulin; Z79.899 Other long term (current) drug therapy
CPT/HCPCS: 36415; 71045; 73564; 80053; 83605; 85025; 99285-25; G0378